=== PATIENT | male | born 1965 | race Caucasian/White ===

== ENCOUNTER 2025-04-19 20:05 | Emergency (ER) | payer OTHER, SELFPAY ==
[2025-04-19 20:06] VITALS: BP 143/91; PULSE 102; RESP 16; TEMP 35.8; O2SAT 99; BMI 44.9
--- NOTE | 2025-04-19 20:19 | RAD_ITS ---
PROCEDURE: HAND MIN 3 VIEWS 04/19/2025 REASON FOR EXAM: INJURY TECHNIQUE: HAND MIN 3 VIEWS COMPARISON: None. FINDINGS: Bones: Acute dislocation of the left 2nd and 3rd interphalangeal joints. Probable tiny acute fracture of the base of the 3rd phalanx, only visualized on lateral radiograph. Joints: The joint spaces are otherwise maintained. Soft tissues: Soft tissue swelling. Other: No radiopaque foreign body. RAD/Hand Min 3 Views IMPRESSION: Acute dislocation and probable tiny acute fracture as described. Reading Location: [id number]
--- OUTSIDE RECORDS SUMMARY | 2025-04-19 20:52 | XMS RPT_ITS | CCD ---
Author Organization [facility] Care Team Providers Care Engine Dispatcher Name Role Phone Chele Anneoy Primary Care Provider LARS PHAN Attending Unavailable Amina [facility] Primary Care Provider Amina [facility] Primary Care Provider [phone] Nicanor SERVICE WRITER ADVISOR.LEONILA [facility] Primary Care Provider Amber Vick Attending Unavailable Amber Vick Attending Unavailable MARIELENA RIVERA Referring Unavailable [facility] Primary Care Unavailable [facility] Primary Care Unavailable MARIELENA RIVERA Referring Unavailable [facility] Primary [facility] Unavailable GIGAX, DAWNA Cevallos Attending Unavailable GIGAX, DAWNA Cevallos Referring Unavailable [facility] Unavailabl e GIGAX, DAWNA Cevallos Attending Unavailable [facility] Unavailable GIGAX, DAWNA Cevallos Referring Unavailable [facility] Unavailabl e GIGAX, DAWNA Cevallos Attending Unavailable [facility] Unavailabl e [facility] Unavailabl e GIGAXDAWNA [facility]erring [facility] GIGAX, DAWNA Cevallos Attending Unavailable [facility] Primary Care Unavailable MARIELENA RVIERA Referring Unavailable [facility] Primary Care Unavailable MARIELENA RIVERA Attending Unavailable [facility] Primary Care Unavailable MARIELENA RIVERA Referring Unavailable [facility] Primary [facility] Unavailable MARIELENA RIVERA Attending Unavailable [facility] Primary Care Unavailable GIGAX, DAWNA Cevallos Attending Unavailable GIGAX, DAWNA Cevallos Attending Unavailable GIGAX, DAWNA Cevallos Admitting Unavailable [facility] Unavailabl e Allergies Allergy Classification Reported Allergen(s) Allergy Type Date of Onset Reaction(s) Facility (20 sources) cephalexin; Translations: [CEPHALEXIN] Drug Allergy 7 Other: See Comments, [facility] Repository (20 sources) codeine; Translations: [CODEINE] Drug Allergy 7 [facility] Repository (15 sources) Sulfamethoxazole / Trimethoprim; Translations: [SULFAMETHOXAZOLE-TR IMETHOPRIM] Drug Allergy 4 Other: See Comments [facility] Medications Current Medications Medication Drug Class(es) Dates Sig (Normalized) Sig (Original) [id number] 200 actuat albuterol 0.09 mg/actuat metered dose inhaler (3 sources) beta2-Adrenergic Agonist albuterol HFA (VENTOLIN HFA) 90 mcg/actuation inhaler Inhale 2 Puffs as instructed. 0 Active atorvastatin 20 mg oral tablet (13 sources) HMG-CoA Reductase Inhibitor Start: 11-18-2023 take 1 tablet by mouth once daily at bedtime atorvastatin (LIPITOR) 20 mg tablet Take 20 mg by mouth daily at bedtime. 11/18/2023 Active CPAP (13 sources) CPAP Active CPAP furosemide 20 mg oral tablet (13 sources) Loop Diuretic take 1 tablet by mouth once daily furosemide (LASIX) 20 mg tablet Take 20 mg by mouth once daily. Active levoFLOXacin 500 mg oral tablet (1 source) Quinolone Antimicrobial Start: 06-21-20 End: 06-26-20 24 take 1 tablet by mouth once daily levoFLOXacin (LEVAQUIN) 500 mg tablet Take 1 tablet by mouth once daily for 5 days. 5 tablet 06/21/2024 06/26/2024 Active levothyroxine sodium 0.2 mg oral tablet (13 sources) l-Thyroxine Start: 11-07-19 24 take 1 tablet by mouth once daily in the morning levothyroxine (SYNTHROID) 200 mcg tablet Take 200 mcg by mouth every morning. Take on an empty stomach. 11/07/2023 Active lisinopril 40 mg oral tablet (13 sources) Angiotensin Converting Enzyme Inhibitor Start: 10-02-20 23 take 1 tablet by mouth once lisinopril (ZESTRIL) 40 mg tablet Take 1 tablet by mouth every afternoon. 10/02/2023 Active 24 hr metoprolol succinate 100 mg extended release oral tablet (13 sources) beta-Adrenergic Buck Start: 10-17-20 23 take 1 tablet by mouth once daily metoprolol succinate ER (TOPROL XL) 100 mg Take 1 tablet by mouth once daily. 10/17/2023 Active 10 actuat olodaterol 0.0025 mg/actuat / tiotropium 0.0025 mg/actuat inhalation spray (13 sources) Anticholinergic, beta2-Adrenergic Agonist Start: 12-01-19 STIOLTO RESPIMAT 2.5-2.5 mcg/actuation Indications: Pulmonary emphysema, unspecified emphysema type (HCC) inhale 2 puffs by mouth and INTO THE LUNGS once daily 1 Each 12/01/2023 Active omeprazole 40 mg delayed release oral capsule (13 sources) Proton Pump Inhibitor Start: 11-18-19 omeprazole (PRILOSEC) 40 mg capsule take 1 capsule by mouth once daily 30 MINUTES before MORNING MEAL 11/18/2023 Active rivaroxaban 20 mg oral tablet (13 sources) Factor Xa Inhibitor Start: 11-07-19 take 1 tablet by mouth once daily at dinner XARELTO 20 mg tablet take 1 tablet by mouth once daily with evening meal 11/07/2023 Active Completed/Discontinued Medications Medication Drug Class(es) Dates Sig (Normalized) Sig (Original) lidocaine hydrochloride 0.02 mg/mg topical gel (2 sources) Antiarrhythmic, Amide Local Anesthetic Start: 06-13-2024 End: 06-13-2024 lidocaine urojet 2 % 20 mL topical gel (GLYDO) Start: 06-13-2024 End: 06-13-2024 lidocaine urojet 2 % 20 mL t opical gel (GLYDO) regadenoson 0.4 mg injection (LEXISCAN) (2 sources) Start: 04-04-2025 End: 04-04-2025 regadenoson 0.4 mg injection (LEXISCAN) Start: 04-04-2025 End: 04-04-2025 0.4 mg, INTRAVENOUS, DIRE CTED NEEDED, 1 dose, Starting on Mon04/04/25 at 0746, Until Mon04/04/25 at 0748, Per-Protocol - for use during STRESS TEST procedure only, Give 0.4 mg (5 mL) over ~10 seconds, followed immediately by a 5 mL saline flush. Wait 10-20 seconds, then administer the radionuclide myocardial perfusion imaging agent., Cardiac Procedure Med Orders sildenafil 50 mg oral tablet (8 sources) Phosphodiesterase 5 Inhibitor End: 01-20-2025 take 1 tablet by mouth once daily as needed sildenafil (VIAGRA) 50 mg tablet Take 50 mg by mouth once daily as needed. 01/20/2025 Discontinued (Other) sodium chloride 0.154 meq/ml irrigation solution (2 sources) Start: 06-13-2024 End: 06-13-2024 NaCl 0.9% irrigation solution Problems Active Problems Problem Classification Problem Date Documented Da te Episodic/Chronic Alcohol-related disorders (13 sources) Alcohol abuse; Translations: [Alcohol abuse, uncomplicated] Onset: 12-01-2023 12-01-2023 Chronic Cardiac dysrhythmias (14 sources) Atrial fibrillation; Translations: [Unspecified atrial fibrillation] Onset: 12-01-2023 12-01-2023 Chronic Chronic obstructive pulmonary disease and bronchiectasis (15 sources) Chronic obstructive lung disease; Translations: [Chronic obstructive pulmonary disease, unspecified] Onset: 12-01-2023 12-01-2023 Chronic Congestive heart failure; nonhypertensive (6 sources) Congestive heart failure; Translations: [Heart failure, unspecified] Onset: 11-26-2024 11-26-2024 Chronic Coronary atherosclerosis and other heart disease (4 sources) Coronary arteriosclerosis; Translations: [Atherosclerotic heart disease of [place] coronary artery without angina pectoris] Onset: 04-04-2025 04-04-2025 Chronic Disorders of lipid metabolism (20 sources) Dyslipidemia; Translations: [Hyperlipidemia, unspecified] Onset: 12-01-2023 12-01-2023 Chronic Esophageal disorders (13 sources) Bautista's esophagus; Translations: [Bautista's esophagus without dysplasia] Onset: 12-01-2023 12-01-2023 Chronic Essential hypertension (20 sources) Essential hypertension; Translations: [Essential (primary) hypertension] Onset: 12-01-2023 12-01-2023 Chronic Hyperplasia of prostate (3 sources) Weak urinary stream due to benign prostatic hypertrophy; Translations: [Benign prostatic hyperplasia with lower urinary tract symptoms] Onset: 06-04-2024 06-04-2024 Chronic Miscellaneous mental health disorders (13 sources) Primary insomnia; Translations: [Primary insomnia] Onset: 12-30-2015 12-01-2023 Chronic Mood disorders (13 sources) Depressive disorder; Translations: [Depression] Onset: 12-30-2015 12-01-2023 Chronic Other diseases of bladder and urethra (4 sources) Male urethral stricture; Translations: [Other urethral stricture, male, overlapping sites] 06-04-2024 Episodic Other lower respiratory disease (2 sources) Dyspnea, unspecified; Translations: [Dyspnea, unspecified type] Onset: 01-31-2025 Episodic Other nutritional; endocrine; and metabolic disorders (13 sources) Body mass index 40+ - severely obese; Translations: [Morbid (severe) obesity due to excess calories] Onset: 12-01-2023 12-01-2023 Chronic Other nutritional; endocrine; and metabolic disorders (10 sources) Body mass index 30+ - obesity; Translations: [Obesity, unspecified] Onset: 06-21-2024 06-21-2024 Chronic Other screening for suspected conditions (not mental disorders or infectious disease) (6 sources) Patient encounter status; Translations: [Encounter for screening for cardiovascular disorders] Onset: 01-31-2025 01-20-2025 Episodic Residual codes; unclassified (14 sources) Obstructive sleep apnea syndrome; Translations: [Obstructive sleep apnea (adult) (pediatric)] Onset: 12-01-2023 Chronic Thyroid disorders (13 sources) Hypothyroidism; Translations: [Hypothyroidism, unspecified] Onset: 12-01-2023 12-01-2023 Chronic Unclassified (1 source) Longstanding persistent atrial fibrillation; Translations: [Longstanding persistent atrial fibrillation (HCC)] Onset: 06-21-2024 Past or Other Problems Problem Classification Problem Date Documented Da te Episodic/Chronic Genitourinary symptoms and ill-defined conditions (3 sources) Retention of urine; Translations: [Retention of urine, unspecified] Onset: 06-04-2024 07-29-2024 Episodic Nonspecific chest pain (13 sources) Radiating chest pain; Translations: [Other chest pain] Onset: 12-01-2023 12-01-2023 Episodic Other diseases of bladder and urethra (13 sources) Urethral stricture; Translations: [Unspecified urethral stricture, male, unspecified site] Onset: 06-04-2024 06-04-2024 Episodic Other diseases of bladder and urethra (2 sources) Other urethral bulbous stricture, male; Translations: [Other specified causes of urethral stricture] Onset: 06-04-2024 10-28-2024 Episodic Other diseases of bladder and urethra (1 source) Other urethral stricture, male, overlapping sites; Translations: [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] Onset: 06-04-2024 Episodic Other lower respiratory disease (13 sources) Snoring; Translations: [Snoring] Onset: 12-01-2023 12-01-2023 Episodic Other lower respiratory disease (20 sources) Dyspnea; Translations: [Shortness of breath] Onset: 12-01-2023 12-01-2023 Episodic Residual codes; unclassified (17 sources) Tobacco user; Translations: [Tobacco use] Onset: 12-01-2023 12-01-2023 Episodic Residual codes; unclassified (18 sources) Past history of procedure; Translations: [Personal history of other medical treatment] Onset: 11-26-2024 11-26-2024 Episodic Residual codes; unclassified (2 sources) Tobacco use; Translations: [Tobacco abuse] Onset: 06-21-2024 Episodic Unclassified (1 source) T8 PHYSICAL Onset: 04-04-2023 Unclassified (3 sources) Patient encounter status 01-20-2025 Urinary tract infections (1 source) Cystitis, unspecified without hematuria; Translations: [Cystitis, unspecified without hematuria] Onset: 06-24-2017 Episodic Results Test Name Value Interpretation Reference Range Facility NM CARDIAC PERF STRESS/PHARM on 04-04-2025 NM CARDIAC PERF STRESS/PHARM * * *Final Report* * * DATE OF EXAM: Apr 04 2025 8:55AM N 0006 - NM CARDIAC PERF STRESS/PHARM / PROCEDURE REASON: multiple diagnoses * * * * Physician Interpretation * * * * Stress ECG Report: [facility] Date of service: 04/04/2025 8:00:00 AM Ordering physician: MARIELENA RIVERA digital advertising specialist: Hoa Cifuentes Interpreting physician: Troy Galan DO Patient name: DAWNA TIPTON Age: 60 years Gender: M Height: 180.34 cm BSA: 2.68 m? Weight: 142.88 kg BMI: 43.9 kg/m? Indication: Shortness of breath, Abnormal resting ECG and Palpitations Stress ECG Conclusion: Conclusion: Non-diagnostic Comments: completed lexiscan stress test. the ekg wasa fib with diffuse st changes Stress ECG Summary: The patient's resting heart rate was 100 bpm and blood pressure was 140/84 mmHg. The patient received regadenoson 0.4 mg IVP over approximately 15 seconds followed immediately by injection of nuclear isotope. The test was terminated due to end of protocol. Other symptoms during the test included SOB. Medications: Last Used LASIX TOPROL XL SYNTHROID PRILOSEC LIPITOR LISINOPRIL XARELTO STIOLTO Resting ECG: Atrial Fib/Flutter and Atrial Fib With Uncontrolled Ventricular Response Symptoms at rest: No symptoms Pharamcologic Protocol: Regadenoson Stress Exercise Table: + +---+---+---+ Time (min) HR SYS TONY + +---+---+---+ 1.0 118 133 76 + +---+---+---+ 3.0 99 110 83 + +---+---+---+ ++--+ HR ++--+ Stress Observations: Resting HR: 100 bpm Resting BP: 140 / 84 mmHg Stress Exercise Observations: Reason for test termination: end of protocol and Symptoms during test: Other symptoms during the test included SOB * * * Final * * * PATIENT: Name: DAWNA TIPTON Age: 60 years Gender: M CONCLUSIONS: 1. SPECT Perfusion Study: Normal. 2. There is no scintigraphic evidence for inducible ischemia. 3. No evidence of scarred myocardium. 4. Left ventricle is normal in size. The left ventricle systolic function is normal. 5. This is a low risk scan. LVEF % 69 Prior Study Comparison No prior nuclear cardiology exam available for comparison. Nuclear Med Report:1-Day Gated SPECT Myocardial Perfusion with Regadenoson Stress: Myocardial perfusion imaging was performed at rest 30 minutes following the IV injection of the radiotracer. The patient received 0.4 mg of regadenoson, via rapid IV push, immediately followed by radiotracer IV. Gated post stress tomographic imaging was performed 30 to 60 minutes later. See administered radiotracer and doses below. [facility] Date of service: 04/04/2025 8:00:00 AM Ordering Physician: MARIELENA HEARN Requesting Physician: Indication: Dyspnea and AFIB, palpatations Interpreting physician: Eric Arriola MD Height: 180.34 cm BSA: 2.68 m? Weight: 142.88 kg BMI: 43.9 kg/m? Imaging Protocol Limitation Reason Patient motion. Exam Type: Rest Stress Radiopharm: Tc-99m Tetrofosmin Tc-99m Tetrofosmin Dosage(mCi): 16 52.4 Stress Agent: Regadenoson 0.4mg Supply provided from [facility] Resting Blood Press: 140/84 mmHg Image Quality The overall study imaging quality was deemed to be good. The following technical issues were noted: Patient motion. FINDINGS: LVEF: 69 % LEFT VENTRICLE The left ventricle is normal in size. Left ventricular systolic function is normal. Stress Test Findings: There is no scintigraphic evidence for inducible ischemia. There is no evidence of scarring. * * * Final * * * Stress Manager Business Management Report: [facility] Date of service: 04/04/2025 8:00:00 AM Supervising physician: Cayla Verduzco CNP PATIENT: Name: DAWNA TIPTON Age: 60 years Gender: M The supervising physician was in the department and immediately available. * * * Final * * * RP Program Director/Air Personality: URMILA Transcribe Date/Time: Apr 04 2025 8:00A Dictated by : ERIC ARRIOLA MD This examination was interpreted and the report reviewed and electronically signed by: ERIC ARRIOLA MD on Apr 07 2025 5:51AM EST [id number] [facility] 03-03-2025 [facility] Office Visit (CAUNDO ) POOJADAWNA Cevallos ([id number]) 1965 M Date Time Provider Department 03/03/25 9:00 AM MARIELENA RIVERA During your visit today, we recorded the following information about you: Pulse Blood pressure Weight Height 98/minute 128/76 142.9 kg 1.803 m Marielena Rivera MD 03/03/2025 11:20 AM Addendum Referring Provider: No ref. provider found Date: March 03, 2025 Chief Complaint: Established Patient Follow-Up (6 weeks calcium score and echo) HISTORY OF PRESENT ILLNESS: Dawna Tipton presents for Established Patient Follow-Up (6 weeks calcium score and echo). 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 With the only complaint that of stable/longstanding mild dyspnea on exertion, chart review reveals the fact that atrial fibrillation was first documented in June 2024. Asymptomatic, he was placed on metoprolol succinate to 100 mg and Xarelto. No attempt was made to restore sinus rhythm. He returns today with again no cardiac complaints. He continues to smoke. ALLERGIES Allergen Reactions Bactrim [Sulfametho* Other: See Comments Get's blisters on his penis Codeine Rash Keflex [Cephalexin] Rash PAST MEDICAL HISTORY: PAST MEDICAL HISTORY Diagnosis Date A-fib (HCC) Bautista's esophagus CHF (congestive heart failure) (HCC) COPD (chronic obstructive pulmonary disease) (HCC) Dyslipidemia Essential hypertension ETOH abuse GERD (gastroesophageal reflux disease) H/O pulmonary function tests 04/17/2023 spirometry normal, mild air trapping H/O pulmonary function tests 01/15/2020 mild obstruction, significant improvement post bronchodilator, mild air trapping present, normal diffusion History of cardiac monitoring 10/20/2022 PAF, no other arrhythmias. Highest HR 151 bpm. lowest HR 67 bpm. Average HR 84 bpm History of echocardiogram 04/02/2024 EF 55-60%. Trace MR and TR History of echocardiogram 11/07/2022 EF 53%. Mildly dilated left atrium. Preserved systolic function of left ventricle. Right ventricular systolic function preserved. Mild MR and TR. RVSP 30-35 mmHg History of echocardiogram 02/14/2025 EF 50%. Left ventricular systolic function is mildly decreased. Right ventricle is mildly dilated. Right atrial cavity is dilated. Mild MR, TR. Trace AR, IA. No evidence of intracardiac shunting as detected by Doppler. History of stress test 11/07/2022 No EKG evidence of ischemia or infarction History of stress test 10/26/2022 EF 61%. Normal perfusion without reversibility. Hypothyroidism Mixed hyperlipidemia CHUYITA (obstructive sleep apnea) Sleep apnea Snoring SOB (shortness of breath) Tobacco abuse Urinary retention PAST SURGICAL HISTORY Procedure Laterality Date CYSTOSCOPY CYSTOSCOPY N/A 06/21/2024 Cysto with dilation of urethral stricture- Dr Shah EAR TUBES HX Bilateral 2023 Dr Cline KNEE SURGERY HX 2012 FAMILY HISTORY Problem Relation Age of Onset Thyroid Mother Diabetes Father Thyroid Father Thyroid Sister SOCIAL HISTORY: Tobacco Use: Types: Cigarettes Alcohol Use: Yes (5-6 beers/day) Drug Use: Never Employer And Job Title: None on file Years Of Education Completed: Not specified Marital Status: MEDICATIONS: Current Outpatient Medications Medication Sig furosemide (LASIX) 20 mg tablet Take 20 mg by mouth once daily. metoprolol succinate ER (TOPROL XL) 100 mg Take 1 tablet by mouth once daily. levothyroxine (SYNTHROID) 200 mcg tablet Take 200 mcg by mouth every morning. Take on an empty stomach. omeprazole (PRILOSEC) 40 mg capsule take 1 capsule by mouth once daily 30 MINUTES before MORNING MEAL atorvastatin (LIPITOR) 20 mg tablet Take 20 mg by mouth daily at bedtime. lisinopril (ZESTRIL) 40 mg tablet Take 1 tablet by mouth every afternoon. XARELTO 20 mg tablet take 1 tablet by mouth once daily with evening meal CPAP STIOLTO RESPIMAT 2.5-2.5 mcg/actuation inhale 2 puffs by mouth and INTO THE LUNGS once daily No current facility-administered medications for this visit. I have personally reviewed the patients past medical history including social, family, surgical, diagnostics, and medications. REVIEW OF SYSTEMS: Review of Systems Constitutional: Negative for chills and fatigue. Respiratory: Negative for chest tightness and shortness of breath. Cardiovascular: Negative for chest pain, palpitations and leg swelling. Neurological: Negative for dizziness, syncope, weakness and light-headedness. Hematological: Bruises/bleeds easily. Psychiatric/Behavioral: Negative for confusion and hallucinations. PHYSICAL EXAMINATION: BP 128/76 (BP Site: Left Arm, BP Position: Sitting, BP Cuff Size: Large Hubert (more content not included)... [facility] 03-03-2025 [facility] Telephone (TáximoNDO) DAWNA TIPTON ([id number]) 1965 M Date Time Provider Department 03/03/25 MARIELENA RIVERA During your visit today, we recorded the following information about you: Marielena Rivera MD 03/03/2025 11:18 AM Signed Revised calcium report - showed heavily calcified LAD. Needs Lexiscan. Micheal Pitts MA 03/03/2025 1:09 PM Signed Patient notified of the message and was given the stress test date/time and was agreeable. Allergies As of Date: 03/03/2025 Noted Allergy Reaction BACTRIM (SULFAMETHOXAZOLE-TRIMETH*05/08 14 - Other: See Comments Comments: Get's blisters on his penis CODEINE 06/24/2017 2 - Rash KEFLEX (CEPHALEXIN) 06/24/2017 2 - Rash Date Reviewed: 03/03/2025 Reviewed by: Micheal Pitts MA - Fully Assessed Reason for Visit: Orders [681] Primary Visit Diagnosis:Encounter for screening for cardiovascular disorders [Z13.6] Other Visit Diagnosis:Coronary artery disease involving [place] coronary artery of [place] heart without angina pectoris [I25.10] Order(s):NM CARDIAC PERF STRESS/PHARM [[id number]] Order #: [id number] FUTURE Prescriptions as of 03/03/2025 - furosemide (LASIX) 20 mg tablet Take 20 mg by mouth once daily. - metoprolol succinate ER (TOPROL XL) 100 mg Take 1 tablet by mouth once daily. - levothyroxine (SYNTHROID) 200 mcg tablet Take 200 mcg by mouth every morning. Take on an empty stomach. - omeprazole (PRILOSEC) 40 mg capsule take 1 capsule by mouth once daily 30 MINUTES before MORNING MEAL - atorvastatin (LIPITOR) 20 mg tablet Take 20 mg by mouth daily at bedtime. - lisinopril (ZESTRIL) 40 mg tablet Take 1 tablet by mouth every afternoon. - XARELTO 20 mg tablet take 1 tablet by mouth once daily with evening meal - CPAP - STIOLTO RESPIMAT 2.5-2.5 mcg/actuation inhale 2 puffs by mouth and INTO THE LUNGS once daily Problem List As Of Date 03/03/2025 Noted Resolved Chest pain radiating to arm [R07.89] 12/01/2023 Diagnosed: 12/01/2023 Depression [F32.A] 12/30/2015 Diagnosed: 12/01/2023 Primary insomnia [F51.01] 12/30/2015 Diagnosed: 12/01/2023 Chronic atrial fibrillation (HCC) [I48.20] 12/01/2023 Bautista's esophagus [K22.70] 12/01/2023 COPD (chronic obstructive pulmonary disease) (H*12/01/2023 Dyslipidemia [E78.5] 12/01/2023 Essential hypertension [I10] 12/01/2023 ETOH abuse [F10.10] 12/01/2023 Hypothyroidism [E03.9] 12/01/2023 Mixed hyperlipidemia [E78.2] 12/01/2023 CHUYITA (obstructive sleep apnea) [G47.33] 12/01/2023 Snoring [R06.83] 12/01/2023 SOB (shortness of breath) [R06.02] 12/01/2023 Tobacco abuse [Z72.0] 12/01/2023 Obesity, Class III, BMI >= 40 [E66.813] 12/01/2023 Urethral stricture [N35.919] 06/04/2024 Obesity (BMI 35.0-39.9 without comorbidity) [E6*06/21/2024 History of echocardiogram [Z92.89] 11/26/2024 History of stress test [Z92.89] 11/26/2024 History of cardiac monitoring [Z92.89] 11/26/2024 CHF (congestive heart failure) (HCC) [I50.9] 11/26/2024 Encounter Status:Closed by MICHEAL PITTS on 03/03/25 Normal [facility] ECHOon 02-14-2025 CONCLUSIONS: - Technically difficult exam due to body habitus. - Exam indication: Shortness of Breath - The left ventricle is normal in size. Left ventricular systolic function is mildly decreased. EF = 50 5% (2D biplane) - The right ventricle is mildly dilated. Right ventricular systolic function is normal. - The right atrial cavity is dilated. - Exam was compared with the prior OUTSIDE echocardiographic exam performed on 11/08/2022. Report in epic. * * * Final * * * [facility] CARDIOLOGY Echocardiography Report: Transthoracic Echo [facility] Date of service: 02/14/2025 9:01:28 AM Ordering physician: MARIELENA RIVERA Indication: Shortness of Breath Technologist: Angel Coates [facility] Interpreting physician: Uriel Lyles MD PATIENT: Name: DAWNA TIPTON : 1965 Age: 59 years Gender: M History of arrhythmia, hypertension and angina. Primary rhythm: atrial fib. Height: 180.30 cm BSA: 2.68 m Weight: 143.10 kg BMI: 44.0 kg/m Heart rate 83 bpm Blood pressure 128/72 mmHg Technically difficult exam due to body habitus. Color Doppler was utilized to interrogate the cardiac valves assessed and spectral Doppler was utilized to determine the flow velocities and pressure gradients reported in this exam. MEASUREMENTS: Value Indexed Normal Max aortic dimension 3.7 cm Ao < 3.8 Left atrial volume 58 ml (biplane A-L) 22 ml/m Radha <= 34 LV ID (diastole) 4.8 cm (2D) 1.78 cm/m LV ID (systole) 3.3 cm (2D) 1.22 cm/m IVS, leaflet tips 1.1 cm (2D) Posterior wall thickness 1.0 cm (2D) Left ventricular mass 180 g (2D) 67 g/m LV stroke volume 51 ml (2D biplane) LVOT stroke volume 48 ml 19 ml/m LV end diastolic volume 102 ml (2D biplane) 38.0 ml/m 34<=EDVi<75 LV end systolic volume 51 ml (2D biplane) 19.0 ml/m Ejection Fraction 50 % (2D biplane) EF > 52 FINDINGS: LEFT VENTRICLE The left ventricle is normal in size. Left ventricular systolic function is mildly decreased. Left ventricular diastolic function was not evaluated due to AF. Wall Motion: All scored segments are normal. RIGHT VENTRICLE The right ventricle is mildly dilated. Right ventricular systolic function is normal. RV systolic tissue Doppler velocity is 8.8 cm/s. Tricuspid annular displacement is 2.2 cm. Estimated right ventricular systolic pressure is 32 mmHg consistent with normal pulmonary artery pressures. Estimated right atrial pressure is 3 mmHg based on IVC assessment. LEFT ATRIUM The left atrial cavity is normal in size. RIGHT ATRIUM The right atrial cavity is dilated. Inferior Vena Cava: The inferior vena cava appears normal measuring 1.4 cm. The vessel decreases greater than 50 percent with inspiration. MITRAL VALVE There is mild (1+) mitral valve regurgitation. There is mild thickening. The peak mitral valve gradient is 6 mmHg. The mean mitral valve gradient is 2 mmHg. The pressure half time is 35 msec. TRICUSPID VALVE There is mild (1+ - 2+) tricuspid valve regurgitation. There is mild thickening. AORTIC VALVE There is trace aortic valve regurgitation. Tricuspid aortic valve. There is moderate thickening. The peak gradient is 3 mmHg (peak velocity = 93.1 cm/s). The mean gradient is 2 mmHg. The LVOT mean velocity is 53.3 cm/s. The LVOT diameter is 2.0 cm. The aortic VTI is 18.0 cm. The mean velocity in the aortic valve is 64.9 cm/s. The dimensionless valve index is 0.85. AV area is 2.67 cm (1.00 cm /m ) by continuity, VTI. The LVOT stroke volume index is 19 ml/m . PULMONIC VALVE There is trace (trace - 1+) pulmonic valve regurgitation. There is mild thickening. AORTA The visualized aorta is normal in size. Measurements - Aortic valve annulus 2.0 cm. Sinus: 3.1 cm. Sinotubular junction 2.4 cm. Mid ascending aorta 3.7 cm. PULMONARY ARTERIES The pulmonary arteries are unseen or not interrogated. INTERATRIAL SEPTUM There is no evidence of intracardiac shunting as detected by Doppler. INTERVENTRICULAR SEPTUM There is no flow through the interventricular septum as detected by Doppler. PERICARDIUM There is no pericardial effusion. [facility] CARDIOLOGY [facility] Echocardiography Echocardiography Rep ort: Transthoracic [facility] Date of service: 02/14/2025 9:01:28 AM Ordering physician: MARIELENA RIVERA Indication: Shortness of Breath Technologist: Angel Coates [facility] Interpreting physician: Uriel Lyles MD PATIENT: Name: DAWNA TIPTON : 1965 Age: 59 years Gender: M History of arrhythmia, hypertension and angina. Primary rhythm: atrial fib. Height: 180.30 cm BSA: 2.68 m Weight: 143.10 kg BMI: 44.0 kg/m Heart rate 83 bpm Blood pressure 128/72 mmHg Technically difficult exam due to body habitus. Color Doppler was utilized to interrogate the cardiac valves assessed and spectral Doppler was utilized to determine the flow velocities and pressure gradients reported in this exam. MEASUREMENTS: Value Indexed Normal Max aortic dimension 3.7 cm Ao < 3.8 Left atrial volume 58 ml (biplane A-L) 22 ml/m Radha <= 34 LV ID (diastole) 4.8 cm (2D) 1.78 cm/m LV ID (systole) 3.3 cm (2D) 1.22 cm/m IVS, leaflet tips 1.1 cm (2D) Posterior wall thickness 1.0 cm (2D) Left ventricular mass 180 g (2D) 67 g/m LV stroke volume 51 ml (2D biplane) LVOT stroke volume 48 ml 19 ml/m LV end diastolic volume 102 ml (2D biplane) 38.0 ml/m 34<=EDVi<75 LV end systolic volume 51 ml (2D biplane) 19.0 ml/m Ejection Fraction 50 % (2D biplane) EF > 52 FINDINGS: LEFT VENTRICLE The left ventricle is normal in size. Left ventricular systolic function is mildly decreased. Left ventricular diastolic function was not evaluated due to AF. Wall Motion: All scored segments are normal. RIGHT VENTRICLE The right ventricle is mildly dilated. Right ventricular systolic function is normal. RV systolic tissue Doppler velocity is 8.8 cm/s. Tricuspid annular displacement is 2.2 cm. Estimated right ventricular systolic pressure is 32 mmHg consistent with normal pulmonary artery pressures. Estimated right atrial pressure is 3 mmHg based on IVC assessment. LEFT ATRIUM The left atrial cavity is normal in size. RIGHT ATRIUM The right atrial cavity is dilated. Inferior Vena Cava: The inferior vena cava appears normal measuring 1.4 cm. The vessel decreases greater than 50 percent with inspiration. MITRAL VALVE There is mild (1+) mitral valve regurgitation. There is mild thickening. The peak mitral valve gradient is 6 mmHg. The mean mitral valve gradient is 2 mmHg. The pressure half time is 35 msec. TRICUSPID VALVE There is mild (1+ - 2+) tricuspid valve regurgitation. There is mild thickening. AORTIC VALVE There is trace aortic valve regurgitation. Tricuspid aortic valve. There is moderate thickening. The peak gradient is 3 mmHg (peak velocity = 93.1 cm/s). The mean gradient is 2 mmHg. The LVOT mean velocity is 53.3 cm/s. The LVOT diameter is 2.0 cm. The aortic VTI is 18.0 cm. The mean velocity in the aortic valve is 64.9 cm/s. The dimensionless valve index is 0.85. AV area is 2.67 cm (1.00 cm /m ) by continuity, VTI. The LVOT stroke volume index is 19 ml/m . PULMONIC VALVE There is trace (trace - 1+) pulmonic valve regurgitation. There is mild thickening. AORTA The visualized aorta is normal in size. Measurements - Aortic valve annulus 2.0 cm. Sinus: 3.1 cm. Sinotubular junction 2.4 cm. Mid ascending aorta 3.7 cm. PULMONARY ARTERIES The pulmonary arteries are unseen or not interrogated. INTERATRIAL SEPTUM There is no evidence of intracardiac shunting as detected by Doppler. INTERVENTRICULAR SEPTUM There is no flow through the interventricular septum as detected by Doppler. PERICARDIUM There is no pericardial effusion. CONCLUSIONS: - Technically difficult exam due to body habitus. - Exam indication: Shortness of Breath - The left ventricle is normal in size. Left ventricular systolic function is mildly decreased. EF = 50 5% (2D biplane) - The right ventricle is mildly dilated. Right ventricular systolic function is normal. - The right atrial cavity is dilated. - Exam was compared with the prior OUTSIDE echocardiographic exam performed on 11/08/2022. Report in epic. * * * Final * * * CC [employer] [facility] : [id number] DynamicsSISUID [facility] CT CA SCORE (CARDIAC) WO IVC ONon 01-31-2025 CT CA SCORE (CARDIAC) WO IVCON * * *Final Report* * * * * * SEE BOTTOM OF REPORT FOR ADDENDED TEXT * * * DATE OF EXAM: Jan 31 2025 11:28AM [facility] 2050 - CT CA SCORE (CARDIAC) WO IVCON / PROCEDURE REASON: multiple diagnoses * * * * Physician Interpretation * * * * * * * * * * * * ORIGINAL REPORT * * * * * * * * Examination: CT Coronary Calcium Score Direct Image Comparison: None HISTORY: 59 years old Male with concern for coronary artery disease. There is request to assess coronary calcification TECHNIQUE: SCANNER: Multi-detector scanner PROTOCOL: Sequential imaging with prospective triggering and 3-mm slice reconstruction was performed without contrast administration. Scan Range: sowmya to the base of the heart Scan acquisition was uncomplicated Tube Voltage: [address] Dose-Length Product (DLP): 62.[address] Dose Reduction Employed: Automated exposure control(AEC) and iterative recon CONTRAST: None Macro Version: [id number] For optimization of anatomic evaluation, off-line postprocessing was performed on a dedicated workstation by the interpreting physician. STUDY LIMITATIONS: None. RESULT: LINES, TUBES and DEVICES: None limited CHEST: visualized Chest wall anatomy: unremarkable. visualized LUNGS: unremarkable. visualized MEDIASTINUM: unremarkable. PERICARDIUM: unremarkable CENTRAL PULMONARY ARTERY: normal dimensions. Assessment is limited due to lack of contrast enhancement. CARDIAC CHAMBERS: assessment is limited in the non-contrast study. -Overall normal dimensions AORTIC VALVE: assessment is limited in the current study. Minimal calcification at the commissures. visualized AORTA: Aortic Size: Normal size visualized thoracic aorta. Wall Changes: no wall calcification. AORTIC DIMENSIONS: AORTIC ROOT: 4.0 cm measured [id number] mid ASCENDING THORACIC AORTA: 3.6 cm mid DESCENDING THORACIC AORTA: 2.5 cm CORONARY ANATOMY: normal origin of the coronary arteries. Calcium Score (Agatston Units): LM: 0 AU LAD: 196 AU LCx: 0 AU RCA: 49.6 AU Other: 0 AU Total: 645 AU Percentile Rank (age and gender matched relative to reference population): 96 percentile* [* [email or web address]] limited upper ABDOMEN: unremarkable BONES and SOFT TISSUES: unremarkable, within limitations of the current study Stove Mounter (topogram) images: No additional findings. IMPRESSION: - Total Coronary Calcium Score (CAC) = 645 - Mild dilation of the aortic root (4.0 cm) * * * * * * * * ADDENDUM #1 * * * * * * * * Calcium Score (Agatston Units): LM: 0 AU LAD: 596 AU LCx: 0 AU RCA: 49.6 AU Other: 0 AU Total: 645.6 AU Program Director/Air Personality: CLARISA Transcribe Date/Time: Mar 03 2025 7:20P Dictated by : GRIS REYNA, This examination was interpreted and the report reviewed and electronically signed by: GRIS REYNA, on Jan 31 2025 1:22PM EST This document has been addended by: GRIS REYNA, on Mar 03 2025 7:22PM EST [id number] [facility] CT Heart and Coronary arteri es for calcium scoring WO contraston 01-31-2025 IMPRESSION: - Total Coronary Calcium Score (CAC) = 645 - Mild dilation of the aortic root (4.0 cm) Program Director/Air Personality: CLARISA Transcribe Date/Time: Jan 31 2025 12:18P Dictated by : GRIS REYNA, This examination was interpreted and the report reviewed and electronically signed by: GRIS REYNA, on Jan 31 2025 1:22PM EST [facility] * * *Final Report* * * DATE OF EXAM: Jan 31 2025 11:28AM [facility] 2050 - CT CA SCORE (CARDIAC) WO IVCON / PROCEDURE REASON: multiple diagnoses * * * * Physician Interpretation * * * * Examination: CT Coronary Calcium Score Direct Image Comparison: None HISTORY: 59 years old Male with concern for coronary artery disease. There is request to assess coronary calcification TECHNIQUE: SCANNER: Multi-detector scanner PROTOCOL: Sequential imaging with prospective triggering and 3-mm slice reconstruction was performed without contrast administration. Scan Range: sowmya to the base of the heart Scan acquisition was uncomplicated Tube Voltage: [address] Dose-Length Product (DLP): 62.[address] Dose Reduction Employed: Automated exposure control(AEC) and iterative recon CONTRAST: None Macro Version: [id number] For optimization of anatomic evaluation, off-line postprocessing was performed on a dedicated workstation by the interpreting physician. STUDY LIMITATIONS: None. RESULT: LINES, TUBES and DEVICES: None limited CHEST: visualized Chest wall anatomy: unremarkable. visualized LUNGS: unremarkable. visualized MEDIASTINUM: unremarkable. PERICARDIUM: unremarkable CENTRAL PULMONARY ARTERY: normal dimensions. Assessment is limited due to lack of contrast enhancement. CARDIAC CHAMBERS: assessment is limited in the non-contrast study. -Overall normal dimensions AORTIC VALVE: assessment is limited in the current study. Minimal calcification at the commissures. visualized AORTA: Aortic Size: Normal size visualized thoracic aorta. Wall Changes: no wall calcification. AORTIC DIMENSIONS: AORTIC ROOT: 4.0 cm measured [id number] mid ASCENDING THORACIC AORTA: 3.6 cm mid DESCENDING THORACIC AORTA: 2.5 cm CORONARY ANATOMY: normal origin of the coronary arteries. Calcium Score (Agatston Units): LM: 0 AU LAD: 196 AU LCx: 0 AU RCA: 49.6 AU Other: 0 AU Total: 645 AU Percentile Rank (age and gender matched relative to reference population): 96 percentile* [* [email or web address]] limited upper ABDOMEN: unremarkable BONES and SOFT TISSUES: unremarkable, within limitations of the current study Stove Mounter (topogram) images: No additional findings. [facility] Provider, Eduard Angelmahnaz billy Islas - 01/31/2025 * * *Final Report* * * DATE OF EXAM: Jan 31 2025 11:28AM [facility] 2050 - CT CA SCORE (CARDIAC) BILLY DUNNON / PROCEDURE REASON: multiple diagnoses * * * * Physician Interpretation * * * * Examination: CT Coronary Calcium Score Direct Image Comparison: None HISTORY: 59 years old Male with concern for coronary artery disease. There is request to assess coronary calcification TECHNIQUE: SCANNER: Multi-detector scanner PROTOCOL: Sequential imaging with prospective triggering and 3-mm slice reconstruction was performed without contrast administration. Scan Range: sowmya to the base of the heart Scan acquisition was uncomplicated Tube Voltage: [address] Dose-Length Product (DLP): 62.[address] Dose Reduction Employed: Automated exposure control(AEC) and iterative recon CONTRAST: None Macro Version: [id number] For optimization of anatomic evaluation, off-line postprocessing was performed on a dedicated workstation by the interpreting physician. STUDY LIMITATIONS: None. RESULT: LINES, TUBES and DEVICES: None limited CHEST: visualized Chest wall anatomy: unremarkable. visualized LUNGS: unremarkable. visualized MEDIASTINUM: unremarkable. PERICARDIUM: unremarkable CENTRAL PULMONARY ARTERY: normal dimensions. Assessment is limited due to lack of contrast enhancement. CARDIAC CHAMBERS: assessment is limited in the non-contrast study. -Overall normal dimensions AORTIC VALVE: assessment is limited in the current study. Minimal calcification at the commissures. visualized AORTA: Aortic Size: Normal size visualized thoracic aorta. Wall Changes: no wall calcification. AORTIC DIMENSIONS: AORTIC ROOT: 4.0 cm measured [id number] mid ASCENDING THORACIC AORTA: 3.6 cm mid DESCENDING THORACIC AORTA: 2.5 cm CORONARY ANATOMY: normal origin of the coronary arteries. Calcium Score (Agatston Units): LM: 0 AU LAD: 196 AU LCx: 0 AU RCA: 49.6 AU Other: 0 AU Total: 645 AU Percentile Rank (age and gender matched relative to reference population): 96 percentile* [* [email or web address]] limited upper ABDOMEN: unremarkable BONES and SOFT TISSUES: unremarkable, within limitations of the current study Stove Mounter (topogram) images: No additional findings. IMPRESSION IMPRESSION: - Total Coronary Calcium Score (CAC) = 645 - Mild dilation of the aortic root (4.0 cm) Program Director/Air Personality: CLARISA Transcribe Date/Time: Jan 31 2025 12:18P Dictated by : GRIS REYNA, This examination was interpreted and the report reviewed and electronically signed by: GRIS REYNA, on Jan 31 2025 1:22PM EST [facility] Radiology Study observation (narrative) [facility] CT Heart and Coronary arteri es for calcium scoring WO contrastOrdered By: [facility] Provider on 01-31-2025 [facility] FREE T4on 01-27-2025 Free T4 [Mass/Vol] 1.36 ng/dL Normal 0.76-1.46 [facility] Comment on above: Performed By: #### F T4 #### [place] [address] CNOVon 01-20-2025 CNOV Office Visit (CAUNDO ) DAWNA TIPTON ([id number]) 1965 M Date Time Provider Department 01/20/25 9:00 AM MARIELENA RIVERA During your visit today, we recorded the following information about you: Pulse Blood pressure Weight Height 93/minute 128/72 143.1 kg 1.803 m Marielena Rivera MD 01/20/2025 9:53 AM Signed Referring Provider: No ref. provider found Date: January 20, 2025 Chief Complaint: CARD New Patient Consult (New patient - previous AFIB w/ normal ventricular rate ) HISTORY OF PRESENT ILLNESS: Dawna Tipton presents for CARD New Patient Consult (New patient - previous AFIB w/ normal ventricular rate ). 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 Previously assessed in October 2022 with a normal nuclear stress test and subsequently in November 2022 with an echocardiogram reporting mild left atrial enlargement. First EKG demonstrating atrial fibrillation seen in June 2024. Placed on Xarelto and metoprolol succinate 100 mg, there is no documentation of effort to restore sinus rhythm. On return today his only complaint is that of dyspnea on exertion [he is sedentary] as he denies orthopnea, PND, symptoms of dysrhythmia, and any discomfort 1 might interpreted as angina. He occasionally feels palpitations when lying in bed but is otherwise unaware of his abnormal rhythm. He is compliant with his Xarelto and metoprolol succinate. ALLERGIES Allergen Reactions Bactrim [Sulfametho* Other: See Comments Get's blisters on his penis Codeine Rash Keflex [Cephalexin] Rash PAST MEDICAL HISTORY: PAST MEDICAL HISTORY Diagnosis Date A-fib ([facility]) Bautista's esophagus CHF (congestive heart failure) ([facility]) COPD (chronic obstructive pulmonary disease) ([facility]) Dyslipidemia Essential hypertension ETOH abuse GERD (gastroesophageal reflux disease) H/O pulmonary function tests 04/17/2023 spirometry normal, mild air trapping H/O pulmonary function tests 01/15/2020 mild obstruction, significant improvement post bronchodilator, mild air trapping present, normal diffusion History of cardiac monitoring 10/20/2022 PAF, no other arrhythmias. Highest HR 151 bpm. lowest HR 67 bpm. Average HR 84 bpm History of echocardiogram 04/02/2024 EF 55-60%. Trace MR and TR History of echocardiogram 11/07/2022 EF 53%. Mildly dilated left atrium. Preserved systolic function of left ventricle. Right ventricular systolic function preserved. Mild MR and TR. RVSP 30-35 mmHg History of stress test 11/08/2022 No EKG evidence of ischemia or infarction History of stress test 10/26/2022 EF 61%. Normal perfusion without reversibility. Hypothyroidism Mixed hyperlipidemia CHUYITA (obstructive sleep apnea) Sleep apnea Snoring SOB (shortness of breath) Tobacco abuse Urinary retention PAST SURGICAL HISTORY Procedure Laterality Date CYSTOSCOPY CYSTOSCOPY N/A 06/21/2024 Cysto with dilation of urethral stricture- Dr Shah EAR TUBES HX Bilateral 2023 Dr Cline KNEE SURGERY HX 2012 FAMILY HISTORY Problem Relation Age of Onset Thyroid Mother Diabetes Father Thyroid Father Thyroid Sister SOCIAL HISTORY: Tobacco Use: Types: Cigarettes Alcohol Use: Yes (5-6 beers/day) Drug Use: Never Employer And Job Title: None on file Years Of Education Completed: Not specified Marital Status: MEDICATIONS: Current Outpatient Medications Medication Sig furosemide (LASIX) 20 mg tablet Take 20 mg by mouth once daily. metoprolol succinate ER (TOPROL XL) 100 mg Take 1 tablet by mouth once daily. levothyroxine (SYNTHROID) 200 mcg tablet Take 200 mcg by mouth every morning. Take on an empty stomach. omeprazole (PRILOSEC) 40 mg capsule take 1 capsule by mouth once daily 30 MINUTES before MORNING MEAL atorvastatin (LIPITOR) 20 mg tablet Take 20 mg by mouth daily at bedtime. lisinopril (ZESTRIL) 40 mg tablet Take 1 tablet by mouth every afternoon. XARELTO 20 mg tablet take 1 tablet by mouth once daily with evening meal CPAP STIOLTO RESPIMAT 2.5-2.5 mcg/actuation inhale 2 puffs by mouth and INTO THE LUNGS once daily No current facility-administered medications for this visit. I have personally reviewed the patients past medical history including social, family, surgical, diagnostics, and medications. REVIEW OF SYSTEMS: Review of Systems Constitutional: Negative for chills and fatigue. Respiratory: Negative for chest tightness and shortness of breath. Cardiovascular: Positive for leg swelling. Negative for chest pain and palpitations. Neurological: Negative for dizziness, syncope, weakness and light-headedness. Hematological: Bruises/bleeds easily. Psychiatric/Behavioral: Negativ (more content not included)... [facility] ECG COMPLETEon 01-20-2025 ECG COMPLETE Ventricular Rate : 8 6 BPM Atrial Rate : 76 BPM QRS Duration : 86 ms Q-T Interval : 366 ms QTC Calculation(Bazett) : 437 ms Calculated R Kerrick : 56 degrees Calculated T Kerrick : 8 degrees appears sinus abn p wave axis Confirmed by TROY GALAN DO ([id number]) on 02/01/2025 4:20:06 AM NAME : DAWNA TIPTON PID : [id number] : 1965 Gender : Male Race : ORD : [id number] Procedure Date : Jan 20 2025 08:58:32 Edit Date : Feb 01 2025 04:20:09 Diagnosis: appears sinus abn p wave axis Confirmed by TROY GALAN DO ([id number]) on 02/01/2025 4:20:06 AM Test Reason : HCS Location : 2 : [facility] Overread By : TROY GALAN DO Edited By : TROY GALAN DO Referred By : , Acquired by : , [facility] 10-28-2024 [facility] Office Visit (UROUPD ) POOJADAWNA Ban ([id number]) 1965 M Date Time Provider Department 10/28/24 9:00 AM DAWNA SHAH UROUPD During your visit today, we recorded the following information about you: Pulse Blood pressure 97/minute 128/88 Dawna Shah MD 10/28/2024 9:18 AM Signed October 28, 2024 Reason for Appointment Patient presents with: Follow Up: 3 month f/u. Pt states he is doing really good. HPI Dawna Cevallos Salalbino is a 59 year old male who presents today for a follow-up appointment. Overall the patient is doing well. He is catheterizing once a week at this point. He said that he has no difficulty passing the catheter now. He really feels like he is doing very well with regard to urination. He said that he has a good, strong stream. Current Medications sildenafil (VIAGRA) 50 mg tablet Take 50 mg by mouth once daily as needed. furosemide (LASIX) 20 mg tablet Take 20 mg by mouth as needed. metoprolol succinate ER (TOPROL XL) 100 mg Take 1 tablet by mouth every afternoon. Takes in the evening. levothyroxine (SYNTHROID) 200 mcg tablet Take 200 mcg by mouth every morning. Take on an empty stomach. omeprazole (PRILOSEC) 40 mg capsule take 1 capsule by mouth once daily 30 MINUTES before MORNING MEAL atorvastatin (LIPITOR) 20 mg tablet Take 20 mg by mouth daily at bedtime. lisinopril (ZESTRIL) 40 mg tablet Take 1 tablet by mouth every afternoon. XARELTO 20 mg tablet take 1 tablet by mouth once daily with evening meal CPAP STIOLTO RESPIMAT 2.5-2.5 mcg/actuation inhale 2 puffs by mouth and INTO THE LUNGS once daily (Patient taking differently: inhale 2 puffs by mouth and INTO THE LUNGS once daily. Takes at HS) PAST MEDICAL HISTORY Diagnosis Date A-fib (HCC) Bautista's esophagus COPD (chronic obstructive pulmonary disease) (HCC) Dyslipidemia Essential hypertension ETOH abuse Hypothyroidism Mixed hyperlipidemia CHUYITA (obstructive sleep apnea) Sleep apnea Snoring SOB (shortness of breath) Tobacco abuse PAST SURGICAL HISTORY Procedure Laterality Date CYSTOSCOPY CYSTOSCOPY N/A 06/21/2024 Cysto with dilation of urethral stricture KNEE SURGERY HX Bilateral FAMILY HISTORY Problem Relation Age of Onset Thyroid Mother Diabetes Father Thyroid Father Social History Tobacco Use Smoking status: Every Day Current packs/day: 1.50 Types: Cigarettes Smokeless tobacco: Never Vaping Use Vaping status: Never Used Substance Use Topics Alcohol use: Yes Comment: 5-6 beers/day Drug use: Never ALLERGIES Allergen Reactions Bactrim [Sulfametho* Other: See Comments Get's blisters on his penis Codeine Rash Keflex [Cephalexin] Other: See Comments Objective BP 128/88 Pulse 97 SpO2 99% Physical Exam Constitutional: Appearance: Normal appearance. Pulmonary: Effort: Pulmonary effort is normal. Genitourinary: Comments: Perimeatal lichen sclerosis noted. The meatus seems to be adequately patent at this point. Neurological: Mental Status: He is alert and oriented to person, place, and time. ASSESSMENT/PLAN: 1. 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 I explained to him that I very strongly encouraged him to continue to catheterize at least once a week to maintain patency of the urethra. I am very concerned about recurrence given the extensiveness of his urethral stricture. The patient expressed clear understanding and reiterated that he is having no problems passing the catheter at all. Therefore, we will continue with the once a week regimen. We will see him back in June when he will be due for a PSA. As long as everything is going well we should be able to see him annually thereafter. 2. Benign prostatic hyperplasia with weak urinary stream - ICD9: 600.01, 788.62, ICD10: N40.1, R39.12 The patient was having obstructive symptoms which were mostly related to the urethral stricture. We will however check a PSA annually. - PROSTATE-SPECIFIC ANTIGEN DIAGNOSTIC Dawna Shah MD Follow Up Return in about 8 months (around 06/28/2025) for PSA prior. Allergies As of Date: 10/28/2024 Noted Allergy Reaction BACTRIM (SULFAMETHOXAZOLE-TRIMETH*/ 14 - Other: See Comments Comments: Get's blisters on his penis CODEINE 06/24/2017 2 - Rash KEFLEX (CEPHALEXIN) 06/24/2017 14 - Other: See Comments Date Reviewed: 10/28/2024 Reviewed by: Debi Haines - Fully Assessed Reason for Visit: Follow Up [171] Cmt: 3 month f/u. Pt states he is doing really good. 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 [facility] Visit (UROUPD ) DAWNA TIPTON ([id number]) 1965 M Date Time Provider Department 07/29/24 10:45 AM DAWNA SHAH UROUPD During your visit today, we recorded the following information about you: Pulse Blood pressure 114/minute 128/83 Dawna Shah MD 07/29/2024 12:39 PM Signed July 29, 2024 Reason for Appointment Patient presents with: Follow Up: 1 month f/u. Pt stated everything is going great, and that is the best thing he has done. HPI Dawna Huangalbino is a 59 year old male who presents today for a follow-up appointment. The patient is doing very well. He said that he urinates essentially normally now. He is not really having any difficulty catheterizing and is doing it twice a day at this time. He denies any gross hematuria or urinary infections. Overall he is doing much better and is very pleased with the improvement. Current Medications sildenafil (VIAGRA) 50 mg tablet Take 50 mg by mouth once daily as needed. furosemide (LASIX) 20 mg tablet Take 20 mg by mouth as needed. metoprolol succinate ER (TOPROL XL) 100 mg Take 1 tablet by mouth every afternoon. Takes in the evening. levothyroxine (SYNTHROID) 200 mcg tablet Take 200 mcg by mouth every morning. Take on an empty stomach. omeprazole (PRILOSEC) 40 mg capsule take 1 capsule by mouth once daily 30 MINUTES before MORNING MEAL atorvastatin (LIPITOR) 20 mg tablet Take 20 mg by mouth daily at bedtime. lisinopril (ZESTRIL) 40 mg tablet Take 1 tablet by mouth every afternoon. XARELTO 20 mg tablet take 1 tablet by mouth once daily with evening meal CPAP STIOLTO RESPIMAT 2.5-2.5 mcg/actuation inhale 2 puffs by mouth and INTO THE LUNGS once daily (Patient taking differently: inhale 2 puffs by mouth and INTO THE LUNGS once daily. Takes at HS) PAST MEDICAL HISTORY Diagnosis Date A-fib (HCC) Bautista's esophagus COPD (chronic obstructive pulmonary disease) (HCC) Dyslipidemia Essential hypertension ETOH abuse Hypothyroidism Mixed hyperlipidemia CHUYITA (obstructive sleep apnea) Sleep apnea Snoring SOB (shortness of breath) Tobacco abuse PAST SURGICAL HISTORY Procedure Laterality Date CYSTOSCOPY CYSTOSCOPY N/A 06/21/2024 Cysto with dilation of urethral stricture KNEE SURGERY HX Bilateral FAMILY HISTORY Problem Relation Age of Onset Thyroid Mother Diabetes Father Thyroid Father Social History Tobacco Use Smoking status: Every Day Current packs/day: 1.50 Types: Cigarettes Smokeless tobacco: Never Vaping Use Vaping status: Never Used Substance Use Topics Alcohol use: Yes Comment: 5-6 beers/day Drug use: Never ALLERGIES Allergen Reactions Bactrim [Sulfametho* Other: See Comments Get's blisters on his penis Codeine Rash Keflex [Cephalexin] Other: See Comments Objective BP 128/83 Pulse 114 SpO2 99% Physical Exam Constitutional: Appearance: Normal appearance. He is obese. Pulmonary: Breath sounds: Normal breath sounds. Neurological: Mental Status: He is alert and oriented to person, place, and time. ASSESSMENT/PLAN: 1. Retention of urine - ICD9: 788.20, ICD10: R33.9 (primary diagnosis) The patient is doing very well with intermittent catheterization. I recommended that he reduce the frequency down to just 1 time per day. We will see him back in 3 months to assess his progress. He does understand that if he has difficulty passing the catheter he should go back to twice a day. 2. 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 - ICD9: 598.8, ICD10: N35.816 See above Dawna Shah MD Follow Up Return in about 3 months (around 10/28/2024). Allergies As of Date: 07/29/2024 Noted Allergy Reaction BACTRIM (SULFAMETHOXAZOLE-TRIMETH*05/08 14 - Other: See Comments Comments: Get's blisters on his penis CODEINE 06/24/2017 2 - Rash KEFLEX (CEPHALEXIN) 06/24/2017 14 - Other: See Comments Date Reviewed: 07/29/2024 Reviewed by: Debi Haines - Fully Assessed Reason for Visit: Follow Up [171] Cmt: 1 month f/u. Pt stated everything is going great, and that is the best thing he has done. Primary Visit Diagnosis:Retention of urine [R33.9] Other Visit Diagnosis: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 [N35.816] Prescriptions as of 07/29/2024 - sildenafil (VIAGRA) 50 mg tablet Take 50 mg by mouth once daily as needed. - furosemide (LASIX) 20 mg tablet Take 20 mg by mouth as needed. - metoprolol succinate ER (TOPROL XL) 100 mg Take 1 tablet by mouth every afternoon. Takes in the evening. - levothyroxine (SYNTHROID) 200 mcg tablet Take 200 mcg by mouth every morning. Take on an empty stomach. - omeprazole (PRILOSEC) 40 mg capsule take 1 capsule by mouth once daily 30 MINUTES before MORNING MEAL - atorvastatin (LIPITOR) 20 mg tablet Take 20 mg by mouth daily at bedtime. - lisinopril (ZESTRIL) 40 mg table (more content not included)... [facility] Dev 06-25-2024 CNPN Telephone (UROUPD) POOJADAWNA ([id number]) 1965 M Date Time Provider Department 06/25/24 AMELIA NUR UROUPD During your visit today, we recorded the following information about you: Lurdes Story 06/25/2024 2:19 PM Signed Dawna called the office and states with the diagnosis of stricture his insurance will not pay for the catheters. He states if the diagnosis of retention or incontinence they might pay. Thank you Amelia Awad, SERVICE WRITER ADVISOR.[facility] 06/25/2024 3:04 PM Signed It appears the diagnosis provided was the same utilized for his surgical intervention. I cannot adjust this diagnosis. Does he have a order form that needs completed or are we e scribing the catheters? I could adjust diagnosis code for e scribed products. Lurdes Story 06/26/2024 10:46 AM Signed Can you please place an addendum on his last progress note with the diagnosis of retention. His insurance will not pay for the catheters with the diagnosis of stricture. Thank you Lurdes Story Allergies As of Date: 06/25/2024 Noted Allergy Reaction BACTRIM (SULFAMETHOXAZOLE-TRIMETH*05/08 14 - Other: See Comments Comments: Get's blisters on his penis CODEINE 06/24/2017 2 - Rash KEFLEX (CEPHALEXIN) 06/24/2017 14 - Other: See Comments Date Reviewed: 06/24/2024 Reviewed by: Lurdes Story - Fully Assessed Reason for Visit: Orders [681] Prescriptions as of 07/17/2024 - sildenafil (VIAGRA) 50 mg tablet Take 50 mg by mouth once daily as needed. - furosemide (LASIX) 20 mg tablet Take 20 mg by mouth as needed. - metoprolol succinate ER (TOPROL XL) 100 mg Take 1 tablet by mouth every afternoon. Takes in the evening. - levothyroxine (SYNTHROID) 200 mcg tablet Take 200 mcg by mouth every morning. Take on an empty stomach. - omeprazole (PRILOSEC) 40 mg capsule take 1 capsule by mouth once daily 30 MINUTES before MORNING MEAL - atorvastatin (LIPITOR) 20 mg tablet Take 20 mg by mouth daily at bedtime. - lisinopril (ZESTRIL) 40 mg tablet Take 1 tablet by mouth every afternoon. Takes 20mg daily - XARELTO 20 mg tablet take 1 tablet by mouth once daily with evening meal - CPAP - STIOLTO RESPIMAT 2.5-2.5 mcg/actuation inhale 2 puffs by mouth and INTO THE LUNGS once daily Problem List As Of Date 06/25/2024 Noted Resolved Chest pain radiating to arm [R07.89] 12/01/2023 Diagnosed: 12/01/2023 Depression [F32.A] 12/30/2015 Diagnosed: 12/01/2023 Primary insomnia [F51.01] 12/30/2015 Diagnosed: 12/01/2023 A-fib (HCC) [I48.91] 12/01/2023 Bautista's esophagus [K22.70] 12/01/2023 COPD (chronic obstructive pulmonary disease) (H*12/01/2023 Dyslipidemia [E78.5] 12/01/2023 Essential hypertension [I10] 12/01/2023 ETOH abuse [F10.10] 12/01/2023 Hypothyroidism [E03.9] 12/01/2023 Mixed hyperlipidemia [E78.2] 12/01/2023 CHUYITA (obstructive sleep apnea) [G47.33] 12/01/2023 Snoring [R06.83] 12/01/2023 SOB (shortness of breath) [R06.02] 12/01/2023 Tobacco abuse [Z72.0] 12/01/2023 Obesity, Class III, BMI >= 40 [E66.01] 12/01/2023 Urethral stricture [N35.919] 06/04/2024 Obesity (BMI 35.0-39.9 without comorbidity) [E6*06/21/2024 Encounter Status:Closed by LURDES STORY on 07/17/24 [facility] CNOVon 06-24-2024 OV Office Visit (UROUPD ) ANGEL LUISDAWNA MURILLO ([id number]) 1965 M Date Time Provider Department 06/24/24 10:00 AM DAWNA SHAH UROUPD During your visit today, we recorded the following information about you: Pulse Blood pressure Weight Height 94/minute 149/98 128.8 kg 1.803 m Dawna Shah MD 06/24/2024 11:51 AM Signed Patient here to have his catheter removed and to learn intermittent catheterization. The patient underwent cystoscopy with dilation of the urethral stricture on Monday. He did have rodriguez urethral disease. The plan will be for him to catheterize daily for now. Mohini Altamirano RN 06/24/2024 1:11 PM Signed Faxed Catheter order a ABC. 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 - sildenafil (VIAGRA) 50 mg tablet Take 50 mg by mouth once daily as needed. - furosemide (LASIX) 20 mg tablet Take 20 mg by mouth as needed. - metoprolol succinate ER (TOPROL XL) 100 mg Take 1 tablet by mouth every afternoon. Takes in the evening. - levothyroxine (SYNTHROID) 200 mcg tablet Take 200 mcg by mouth every morning. Take on an empty stomach. - omeprazole (PRILOSEC) 40 mg capsule take 1 capsule by mouth once daily 30 MINUTES before MORNING MEAL - atorvastatin (LIPITOR) 20 mg tablet Take 20 mg by mouth daily at bedtime. - lisinopril (ZESTRIL) 40 mg tablet Take 1 tablet by mouth every afternoon. Takes 20mg daily - XARELTO 20 mg tablet take 1 tablet by mouth once daily with evening meal - CPAP - STIOLTO RESPIMAT 2.5-2.5 mcg/actuation inhale 2 puffs by mouth and INTO THE LUNGS once daily Problem List As Of Date 06/24/2024 Noted Resolved Chest pain radiating to arm [R07.89] 12/01/2023 Diagnosed: 12/01/2023 Depression [F32.A] 12/30/2015 Diagnosed: 12/01/2023 Primary insomnia [F51.01] 12/30/2015 Diagnosed: 12/01/2023 A-fib (HCC) [I48.91] 12/01/2023 Bautista's esophagus [K22.70] 12/01/2023 COPD (chronic obstructive pulmonary disease) (H*12/01/2023 Dyslipidemia [E78.5] 12/01/2023 Essential hypertension [I10] 12/01/2023 ETOH abuse [F10.10] 12/01/2023 Hypothyroidism [E03.9] 12/01/2023 Mixed hyperlipidemia [E78.2] 12/01/2023 CHUYITA (obstructive sleep apnea) [G47.33] 12/01/2023 Snoring [R06.83] 12/01/2023 SOB (shortness of breath) [R06.02] 12/01/2023 Tobacco abuse [Z72.0] 12/01/2023 Obesity, Class III, BMI >= 40 [E66.01] 12/01/2023 Urethral stricture [N35.919] 06/04/2024 Obesity (BMI 35.0-39.9 without comorbidity) [E6*06/21/2024 Visit Notes: >> Mohini Altamirano RN Mon Jun 24, 2024 1:11 PM Status: Signed Faxed Catheter order a ABC. Disposition: Return in about 4 weeks (around 07/22/2024). Follow-up and Disposition History for Encounter Date Provider Department Center 06/24/2024 [id number]-OHRVADAWNA SHAHKatherynUROUPD [facility] Encounter Status:Closed by DAWNA SHAH on 06/24/24 [facility] ANES POSTPROC EVALon 024 ANES POSTPROC EVAL HNO ID: [id number] Author: RUTH AHN DO Service: ? 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 Post Anesthesia Patient Status Patient Evaluation: PACU. PACU/ICU Patient Condition: stable. Anticipated Disposition: phase 2 then home. Neurological Status: aware and responsive. Pulmonary Status: breathing comfortably on room air Airway Control: returned to baseline unsupported. Cardiovascular Status: stable. Pain Management: clinically adequate Postoperative Hydration: acceptable. Intraoperative Events: no significant anesthesia events Post Operative Nausea/Vomiting Status: no significant post operative nausea or vomiting Recommendation: continue current plan of care. Anesthesia Observations No Documentation SIGNATURE: Ruth Ahn DO PATIENT NAME: Dawna Tipotn DATE: June 21, 2024 TIME: 3:13 PM CSN: [id number] [facility] ANES PRE-OPon 06-21-2024 ANES PRE-OP HNO ID: [id number] Author: RUTH AHN DO Service: ? Author Type: Anesthesiologist Type: Anesthesia Preprocedure Evaluation Filed: 06/21/2024 13:05 Note Text: ANESTHESIOLOGY DAY OF SURGERY NOTE : 1965 Procedure Information Date/Time: 06/21/24 1230 Procedure: CYSTOSCOPY Location: UN OR / UN OR Surgeons: Dawna Shah MD Estimated body mass index is 39.73 kg/m? as calculated from the following: Height as of this encounter: 180.3 cm (5' 11). Weight as of this encounter: 129.2 kg (284 lb 13.4 oz). Most recent hematocrit and potassium results: Hematocrit 40.3 06/13/2024 Potassium 3.6 06/13/2024 Relevant Problems ANESTHESIA (+) CHUYITA (obstructive sleep apnea) CARDIO (+) A-fib (HCC) (+) Essential hypertension ENDO (+) Hypothyroidism PULMONARY (+) COPD (chronic obstructive pulmonary disease) (HCC) (+) CHUYITA (obstructive sleep apnea) (+) SOB (shortness of breath) I - PHYSICAL EVALUATION AIRWAY Patient intubated: No. Tracheostomy tube not present Mallampati: III. TM distance: >3 FB. Neck ROM: full ROM without neurological symptoms. Mouth opening: adequate. Short neck: no. Thick neck: no Ladd present: no II - ANESTHESIA PLAN ASA Score: 3 Anesthetic Plan: MAC The patient is not a current smoker. NPO Status: adequate Beta Buck Monitoring Plan Monitoring plan: standard ASA. Post Procedure Analgesic Plan Informed Consent Anesthetic risks, benefits, alternatives, personnel and consent discussed: yes. Patient / Responsible Green Party agrees to proceed: yes Patient / Surrogate agrees to blood products: blood products not planned Significant changes in the patient condition since the History and Physical, not otherwise documented in primary service progress note: no. Potential Anesthesia issues that may suggest increased risk of complications or contraindication to planned procedure: none. Vitals Value Taken Time BP 147/102 06/21/24 1100 Pulse 92 06/21/24 1100 Resp 20 06/21/24 1100 Temp 36.5 ?C (97.7 ?F) 06/21/24 1100 SpO2 96 % 06/21/24 1100 Facility-Administered Medications as of 06/21/2024 Medication Dose Route Frequency lactated ringers iv infusion 5-30 mL/hr INTRAVENOUS CONTINUOUS levoFLOXacin iv piggyback 500 mg in D5W 100 mL (LEVAQUIN) 500 mg INTRAVENOUS ONCE Outpatient Medications as of 06/21/2024 Medication Sig sildenafil (VIAGRA) 50 mg tablet Take 50 mg by mouth once daily as needed. furosemide (LASIX) 20 mg tablet Take 20 mg by mouth as needed. metoprolol succinate ER (TOPROL XL) 100 mg Take 1 tablet by mouth every afternoon. Takes in the evening. levothyroxine (SYNTHROID) 200 mcg tablet Take 200 mcg by mouth every morning. Take on an empty stomach. omeprazole (PRILOSEC) 40 mg capsule take 1 capsule by mouth once daily 30 MINUTES before MORNING MEAL atorvastatin (LIPITOR) 20 mg tablet Take 20 mg by mouth daily at bedtime. lisinopril (ZESTRIL) 40 mg tablet Take 1 tablet by mouth every afternoon. Takes 20mg daily XARELTO 20 mg tablet take 1 tablet by mouth once daily with evening meal CPAP STIOLTO RESPIMAT 2.5-2.5 mcg/actuation inhale 2 puffs by mouth and INTO THE LUNGS once daily (Patient taking differently: inhale 2 puffs by mouth and INTO THE LUNGS once daily. Takes at HS) I have interviewed and examined the patient. I have reviewed the medical record and/or the pre-anesthesia evaluation, pertinent labs, and test results. This contains updated information obtained within 48 hours of Surgery/Procedure. SIGNATURE: Ruth Ahn DO PATIENT NAME: Dawna Tipton DATE: June 21, 2024 TIME: 1:03 PM CSN: [id number] [facility] HISTORY PHYSICALon HISTORY PHYSICAL HNO ID: [id number] Author: DAWNA SHAH MD Service: Urology Author Type: Physician Type: H&P Filed: 06/21/2024 13:00 Note Text: UPDATED HISTORY AND PHYSICAL EXAMINATION SERVICE DATE: 06/21/2024 SERVICE TIME: 1:00 PM PHYSICAL EXAM MUST BE COMPLETED ON ADMISSION The History and Physical (completed in the past 30 days) has been reviewed and the patient has been examined. The contents accurately reflect the patient's condition with the following additions or revisions since the HANDP was completed. Examination indicates no changes. This HANDP can be found in the Electronic Medical Record. SIGNATURE: Dawna Shah MD PATIENT NAME: Dawna Tipton DATE: June 21, 2024 TIME: 1:00 PM [facility] OPERATIVE NOon 06-21-2024 OPERATIVE NO HNO ID: [id number] Author: DAWNA SHAH MD Service: Urology Author Type: Physician Type: Operative Report Filed: 06/21/2024 14:16 Note Text: OPERATIVE/PROCEDURE REPORT LOG ID: [id number] SURGERY/PROCEDURE DATE: 06/21/2024 INCISION/PROCEDURE START TIME: INCISION CLOSE/PROCEDURE END TIME: SURGEON(S)/PROCEDURALIST(S) AND AUTOCAD(S): Surgeon(s) and Role: * Dawna Shah MD - Primary No Additional Staff SURGERY/PROCEDURE(S): Cystoscopy with dilation of urethral stricture ANESTHESIA: Monitored Anesthesia Care SURGERY/PROCEDURE DETAILS: The patient was taken to the operating room and placed in the supine position on the cystoscopy table. After he was sedated he was placed in the dorsal lithotomy position and prepped and draped in usual fashion. Following this I attempted to advance the pediatric cystoscope into the urethra however he had very significant narrowing even of the distal ureter. I then obtained a straight Solo wire. Under fluoroscopic guidance I was able to advance the wire into the bladder. I then obtained the Metatomix urethral dilator set. The urethra was sequentially dilated from 8 Dutch up to 20 Dutch. A 17 Dutch cystoscope was inserted alongside the wire through the urethra into the bladder. He had very extensive trabeculation of the bladder but no other abnormalities were noted. The ureteral orifices were in their normal location and configuration. The wire was in good position. As the scope was withdrawn the prostatic fossa was carefully evaluated and it was fairly small. Almost the entire pendulous urethra is extremely diseased and scarred. I then obtained a 18 Dutch miccosukee tip catheter. The catheter was advanced over the wire without difficulty. Once the catheter was all the way into the hub the wire was removed and the balloon was inflated with 10 mL of sterile water. The catheter was left to straight drain. The procedure was terminated. The patient was taken back to the ambulatory surgery unit in stable condition. PRE-OP/PRE-PROCEDURE DIAGNOSIS: Urethral stricture POST-OP/POST-PROCEDURE DIAGNOSIS: Same ESTIMATED BLOOD LOSS: None SPECIMENS: None IMPLANTABLE DEVICES: None DRAINS: South catheter COMPLICATIONS: None CLOSURE TECHNIQUE: Not applicable PARTICIPATION IN SURGERY/PROCEDURE: I/primary surgeon/proceduralist performed the entire procedure. SIGNATURE: Dawna Shah MD PATIENT NAME: Dawna Tipton DATE: June 21, 2024 TIME: 2:14 PM [facility] Bacteria Ur Culton 4 Bacteria identified Cx Nom (U) ORGANISM ID: 1 <10,000 CFU/ml Normal urogenital moise [facility] Comment on above: Performed By: #### 6 30-4 #### [facility] CLIA [id number] [address] [place] [address] [place] Basic metabolic 2000 panelon 06-13-2024 Anion gap [Moles/Vol] 11 mmol/L 8 - 15 mmol/L [facility] Calcium [Mass/Vol] 8.9 mg/dL 8.5 - 10.2 mg/dL [facility] Chloride [Moles/Vol] 105 mmol/L 98 - 107 mmol/L [facility] CO2 [Moles/Vol] 25 mmol/L 22 - 30 mmol/L [facility] Creatinine [Mass/Vol] 1.16 mg/dL 0.73 - 1.22 mg/dL [facility] GFR/1.73 sq M.predicted among non-blacks MDRD (S/P/Bld) [Vol rate/Area] 73 mL/min/{1.73_m2} - PINF [facility] Comment on above: Estimated Glomerular Filtration Rate (eGFR) is calculated using the 2020 CKD-EPI creatinine equation. This equation utilizes serum creatinine, sex, and age as parameters. The creatinine assay has traceable calibration to isotope dilution-mass spectrometry. Refer to KDIGO guidelines for clinical interpretation. In patients with unstable renal function, e.g. those with acute kidney injury, the eGFR may not accurately reflect actual GFR. Glucose [Mass/Vol] 99 mg/dL 74 - 99 mg/dL [facility] Comment on above: The [place] [employer] (ADA) provides guidance for cutoff values for fasting glucose and random glucose. The ADA defines fasting as no caloric intake for at least 8 hours. Fasting plasma glucose results between 100 to 125 mg/dL indicate increased risk for diabetes (prediabetes). Fasting plasma glucose results greater than or equal to 126 mg/dL meet the criteria for diagnosis of diabetes. In the absence of unequivocal hyperglycemia, results should be confirmed by repeat testing. In a patient with classic symptoms of hyperglycemia or hyperglycemic crisis, random plasma glucose results greater than or equal to 200 mg/dL meet the criteria for diagnosis of diabetes. Reference: Standards of Medical Care in Diabetes 2016, [employer] Diabetes Association. Diabetes Care. 2016.39(Suppl 1). Interpretation and review of laboratory results Abnormal [facility] Potassium [Moles/Vol] 3.6 mmol/L Low 3.7 - 5.1 mmol/L [facility] Sodium [Moles/Vol] 141 mmol/L 136 - 144 mmol/L [facility] Urea nitrogen [Mass/Vol] 13 mg/dL 9 - 24 mg/dL [facility] Anion gap [Moles/Vol] 11 mmol/L Normal 8-15 [facility] Comment on above: Order Comment: Miladi claudia Type: BLOOD SPECIMENOrdering Facility: [facility] Address: [address] [place] [address] Performed By: #### 2 4321-2 ####[facility] LABIA [id number] [place] [address] [place] Calcium [Mass/Vol] 8.9 mg/dL Normal 8.5-10.2 [facility] Comment on above: Order Comment: Miladi claudia Type: BLOOD SPECIMENOrdering Facility: [facility] Address: [address] [place] [address] Performed By: #### 2 4321-2 ####[facility] LABIA [id number] [place] [address] [place] Chloride [Moles/Vol] 105 mmol/L Normal 98-107 [facility] Comment on above: Order Comment: Speci men Type: BLOOD SPECIMENOrdering Facility: [facility] Address: [address] [place] [address] Performed By: #### 2 4321-2 ####[facility] LABIA [id number] [place] [address] [place] CO2 [Moles/Vol] 25 mmol/L Normal 22-30 [facility] Comment on above: Order Comment: Speci men Type: BLOOD SPECIMENOrdering Facility: [facility] Address: [address] [place] [address] Performed By: #### 2 4321-2 ####[facility] LABCLIA [id number] [place] [address] [place] Creatinine [Mass/Vol] 1.16 mg/dL Normal 0.73-1.22 [facility] Comment on above: Order Comment: Maxime taylor Type: BLOOD SPECIMENOrdering Facility: [facility] Address: [address] [place] [address] Performed By: #### 2 4321-2 ####[facility] LABIA [id number] [place] [address] [place] Creatinine and Glomerular filtration rate.predicted panel (S/P/Bld) 73 mL/min/1.73m??? Normal >=60 [facility] Comment on above: Order Comment: Maxime taylor Type: BLOOD SPECIMENOrdering Facility: [facility] Address: [address] [place] [address] Result Comment: Brandy mated Glomerular Filtration Rate (eGFR) is calculated using the 2020 CKD-EPI creatinine equation. This equation utilizes serum creatinine, sex, and age as parameters. The creatinine assay has traceable calibration to isotope dilution-mass spectrometry. Refer to KDIGO guidelines for clinical interpretation. In patients with unstable renal function, e.g. those with acute kidney injury, the eGFR may not accurately reflect actual GFR. Performed By: #### 2 4321-2 ####[facility] LABCLIA [id number] [place] [address] [place] Glucose [Mass/Vol] 99 mg/dL Normal 74-99 [facility] Comment on above: Order Comment: Maxime taylor Type: BLOOD SPECIMENOrdering Facility: [facility] Address: [address] [place] [address] Result Comment: The [place] Diabetes Association (ADA) provides guidance for cutoff values for fasting glucose and random glucose. The ADA defines fasting as no caloric intake for at least 8 hours. Fasting plasma glucose results between 100 to 125 mg/dL indicate increased risk for diabetes (prediabetes). Fasting plasma glucose results greater than or equal to 126 mg/dL meet the criteria for diagnosis of diabetes. In the absence of unequivocal hyperglycemia, results should be confirmed by repeat testing. In a patient with classic symptoms of hyperglycemia or hyperglycemic crisis, random plasma glucose results greater than or equal to 200 mg/dL meet the criteria for diagnosis of diabetes. Reference: Standards of Medical Care in Diabetes 2016, [employer] Diabetes Association. Diabetes Care. 2016.39(Suppl 1). Performed By: #### 2 4321-2 ####[facility] [id number] [place] [address] [place] Potassium [Moles/Vol] 3.6 mmol/L Low 3.7-5.1 [facility] Comment on above: Order Comment: Speci men Type: BLOOD SPECIMENOrdering Facility: [facility] Address: [address] [place] [address] Performed By: #### 2 4321-2 ####[facility] [id number] [place] [address] [place] Sodium [Moles/Vol] 141 mmol/L Normal 136-144 [facility] Comment on above: Order Comment: Maxime taylor Type: BLOOD SPECIMENOrdering Facility: [facility] Address: [address] [place] [address] Performed By: #### 2 4321-2 ####[facility] [id number] [place] [address] [place] Urea nitrogen [Mass/Vol] 13 mg/dL Normal 9-24 [facility] Comment on above: Order Comment: Maxime taylor Type: BLOOD SPECIMENOrdering Facility: [facility] Address: [address] [place] [address] Performed By: #### 2 4321-2 ####[facility] [id number] [place] [address] [place] CBC panel Auto (Bld)on 06-13 Erythrocyte distribution width (RBC) [Ratio] 15.8 % High 11.5 - 15.0 % [facility] Hematocrit (Bld) [Volume fraction] 40.3 % 39.0 - 51.0 % [facility] Hemoglobin (Bld) [Mass/Vol] 13.6 g/dL 13.0 - 17.0 g/dL [facility] Interpretation and review of laboratory results Abnormal [facility] MCH (RBC) [Entitic mass] 30.5 pg 26.0 - 34.0 pg [facility] MCHC (RBC) [Mass/Vol] 33.7 g/dL 30.5 - 36.0 g/dL [facility] MCV (RBC) [Entitic vol] 90.4 fL 80.0 - 100.0 fL [facility] Nucleated RBC (Bld) [#/Vol] NINF [facility] Platelet mean volume (Bld) [Entitic vol] 9.5 fL 9.0 - 12.7 fL [facility] Platelets (Bld) [#/Vol] 223 10*3/uL [facility] RBC (Bld) [#/Vol] 4.46 10*6/uL 4.20 - 6.00 m/uL [facility] WBC (Bld) [#/Vol] 6.95 10*3/uL [facility] Erythrocyte distribution width (RBC) [Ratio] 15.8 % High 11.5-15.0 [facility] Comment on above: Order Comment: Speci men Type: BLOOD SPECIMEN [facility] Address: [address] [place] [address] Performed By: #### 5 8410-2 #### [facility] LAB CLIA [id number] [address] [place] [address] [place] Hematocrit (Bld) [Volume fraction] 40.3 % Normal 39.0-51.0 [facility] Comment on above: Order Comment: Speci men Type: BLOOD SPECIMEN [facility] Address: [address] [place] [address] Performed By: #### 5 8410-2 #### [facility] CLIA [id number] [address] [place] [address] [place] Hemoglobin (Bld) [Mass/Vol] 13.6 g/dL Normal 13.0-17.0 [facility] Comment on above: Order Comment: Speci men Type: BLOOD SPECIMEN [facility] Address: [address] [place] [address] Performed By: #### 5 8410-2 #### [facility] CLIA [id number] [address] [place] [address] [place] MCH (RBC) [Entitic mass] 30.5 pg Normal 26.0-34.0 [facility] Comment on above: Order Comment: Speci men Type: BLOOD SPECIMEN [facility] Address: [address] [place] [address] Performed By: #### 5 8410-2 #### [facility] CLIA [id number] [address] [place] [address] [place] MCHC (RBC) [Mass/Vol] 33.7 g/dL Normal 30.5-36.0 [facility] Comment on above: Order Comment: Speci men Type: BLOOD SPECIMEN [facility] Address: [address] [place] [address] Performed By: #### 5 8410-2 #### [facility] CLIA [id number] [address] [place] [address] [place] MCV (RBC) [Entitic vol] 90.4 fL Normal 80.0-100.0 [facility] Comment on above: Order Comment: Speci men Type: BLOOD SPECIMEN [facility] Address: [address] [place] [address] Performed By: #### 5 8410-2 #### [facility] CLIA [id number] [address] [place] [address] [place] Nucleated RBC (Bld) [#/Vol] 10*3/uL Normal <0.01 [facility] Comment on above: Order Comment: Speci men Type: BLOOD SPECIMEN [facility] Address: [address] [place] [address] Performed By: #### 5 8410-2 #### [facility] CLIA [id number] [address] [place] [address] [place] Platelet mean volume (Bld) [Entitic vol] 9.5 fL Normal 9.0-12.7 [facility] Comment on above: Order Comment: Speci men Type: BLOOD SPECIMEN [facility] Address: [address] [place] [address] Performed By: #### 5 8410-2 #### [facility] CLIA [id number] [address] [place] [address] [place] Platelets (Bld) [#/Vol] 223 10*3/uL Normal 150-400 [facility] Comment on above: Order Comment: Speci men Type: BLOOD SPECIMEN [facility] Address: [address] [place] [address] Performed By: #### 5 8410-2 #### [facility] CLIA [id number] [address] [place] [address] [place] RBC (Bld) [#/Vol] 4.46 10*6/uL Normal 4.20-6.00 [facility] Comment on above: Order Comment: Speci men Type: BLOOD SPECIMEN [facility] Address: [address] [place] [address] Performed By: #### 5 8410-2 #### [facility] CLIA [id number] [address] [place] [address] WBC (Bld) [#/Vol] 6.95 10*3/uL Normal 3.70-11.00 [facility] Comment on above: Order Comment: Speci men Type: BLOOD SPECIMEN [facility] Address: [address] [place] [address] Performed By: #### 5 8410-2 #### [facility] CLIA [id number] [address] [place] [address] OF [facility] CNOVon 06-13-2024 CNOV Office Visit (UROUPD ) DAWNA [id number]) 1965 M Date Time Provider Department 06/13/24 10:30 AM DAWNA SHAH UROUPD During your visit today, we recorded the following information about you: Blood pressure 157/121 Dawna Shah MD 06/13/2024 12:42 PM Signed June 13, 2024 Reason for Appointment Patient presents with: Cystoscopy-1: Pt Denies urinary pain. Pt states urinary urgency and states he does not empty well HPI Dawna Tipton is a 59 year old male who presents today for cystoscopy. Pre op dx: Urethral stricture Post op dx: Same Procedure: Attempted flexible cystoscopy Scription of procedure: The patient was taken to the procedure room and placed in the supine position on the cystoscopy table. He was prepped in the usual fashion. 2% Xylocaine jelly was instilled into the urethra in a retrograde fashion. I obtained the flexible cystoscope and attempted to advance this into the urethra however there was significant meatal stenosis. I then obtained a straight hemostat and attempted to gently dilate the meatus however the patient had quite a bit of discomfort and it was clear that this was not going to be possible without anesthesia. The attempt was aborted and the patient will be scheduled for dilation in the operating room. BP 172/101 Physical Exam No follow-ups on file. UNIVERSAL PROTOCOL / SAFETY CHECKLIST Procedure to be Performed: Cystoscopy Sign In: A Moment of CARE was completed. Personnel directly involved with the procedure wore the appropriate PPE (Personal Protective Equipment). No special equipment needed. Patient/Surrogate Stated/Verified: PATIENT VERIFIED(optional for EMERGENT procedures): Patient name, Date of , Relevant allergies, and The intended procedure Time Out Communication: Intended patient and procedure match the source documents. Consent documented and matches the intended procedure. Relevant labs, photos, and/or imaging studies have been reviewed. No correct side/site applicable for marking and visibility. Medications required for procedure verified. No fire risk assessment and interventions applicable. No implant(s) inserted. Sign Out: SIGN OUT (optional for EMERGENT procedures): No specimen collected. All instruments, equipment, possible retained foreign bodies accounted for. Post-procedure follow-up management communicated and Plan of Care Visit completed when applicable. JONNY Funes Michael Ralph, MD 06/13/2024 12:42 PM Signed June 13, 2024 Reason for Appointment Patient presents with: Cystoscopy-1: Pt Denies urinary pain. Pt states urinary urgency and states he does not empty well HPI Dawna Tipton is a 59 year old male who presents today for cystoscopy. The patient had no new complaints but does still have lower urinary tract symptoms. Current Medications sildenafil (VIAGRA) 50 mg tablet Take 50 mg by mouth once daily as needed. furosemide (LASIX) 20 mg tablet Take 20 mg by mouth as needed. metoprolol succinate ER (TOPROL XL) 100 mg Take 1 tablet by mouth every afternoon. levothyroxine (SYNTHROID) 200 mcg tablet Take 200 mcg by mouth every morning. Take on an empty stomach. omeprazole (PRILOSEC) 40 mg capsule take 1 capsule by mouth once daily 30 MINUTES before MORNING MEAL atorvastatin (LIPITOR) 20 mg tablet Take 20 mg by mouth daily at bedtime. lisinopril (ZESTRIL) 40 mg tablet Take 1 tablet by mouth every afternoon. XARELTO 20 mg tablet take 1 tablet by mouth once daily with evening meal albuterol HFA (VENTOLIN HFA) 90 mcg/actuation inhaler Inhale 2 Puffs as instructed. STIOLTO RESPIMAT 2.5-2.5 mcg/actuation inhale 2 puffs by mouth and INTO THE LUNGS once daily CPAP PAST MEDICAL HISTORY No date: A-fib ([facility]) No date: Bautista's esophagus No date: COPD (chronic obstructive pulmonary disease) ([facility]) No date: Dyslipidemia No date: Essential hypertension No date: ETOH abuse No date: Hypothyroidism No date: Mixed hyperlipidemia No date: CHUYITA (obstructive sleep apnea) No date: Sleep apnea No date: Snoring No date: SOB (shortness of breath) No date: Tobacco abuse PAST SURGICAL HISTORY No date: KNEE SURGERY HX FAMILY HISTORY Problem Relation Age of Onset Thyroid Mother Diabetes Father Thyroid Father Social History Tobacco Use Smoking status: Every Day Packs/day: 1.5 Types: Cigarettes Smokeless tobacco: Never Vaping Use Vaping Use: Never used Substance Use Topics Alcohol use: Yes Drug use: Never ALLERGIES Allergen Reactions Bactrim [Sulfametho* Other: See Comments Get's blisters on his penis Codeine Rash Keflex [Cephalexin] Other: See Comments Objective BP 157/121 Physical Exam Constitutional: Appearance: Normal appearance. HENT: Head: Normocephalic. Nose: Nose normal. Cardiovascular: Rate and Rhythm: N (more content not included)... Normal [facility] ECG COMPLETEon 06-13-2024 ECG COMPLETE Ventricular Rate : 8 6 BPM QRS Duration : 80 ms Q-T Interval : 344 ms QTC Calculation(Bazett) : 411 ms Calculated R Kerrick : 5 degrees Calculated T Kerrick : 34 degrees Atrial fibrillation Abnormal ECG No previous ECGs available Confirmed by TRIPP ROJAS MD ([id number]) on 06/14/2024 9:29:13 AM NAME : POOJADAWNA PID : [id number] : 1965 Gender : Male Race : ORD : [id number] Procedure Date : Jun 13 2024 11:29:31 Edit Date : Jun 14 2024 09:29:18 Diagnosis: Atrial fibrillation Abnormal ECG No previous ECGs available Confirmed by TRIPP ROJAS MD ([id number]) on 06/14/2024 9:29:13 AM Test Reason : HCS Location : 7 : [facility] Overread By : TRIPP ROJAS MD Edited By : TRIPP ROJAS MD Referred By : DAWNA SHAH Acquired by : ARLEN STEPHEN [facility] Bacteria Ur Culton Bacteria identified Cx Nom (U) ORGANISM ID: 1 <10,000 CFU/ml Normal urogenital moise [facility] Comment on above: Performed By: #### 6 30-4 #### [facility] CLIA [id number] [address] [place] [address] [place] CNOVon 06-04-2024 CNOV Office Visit (UROUPD ) DAWNA TIPTON ([id number]) 1965 M Date Time Provider Department 06/04/24 7:30 AM DAWNA SHAH UROVALORIE During your visit today, we recorded the following information about you: Pulse Blood pressure 98/minute 128/89 Dawna Shah MD 06/04/2024 8:03 AM Signed June 04, 2024 Reason for Appointment Patient presents with: Consult: Acute cystitis with hematuria, dysuria, hx of hypospadias repair. Pt stated he did have an infection and has finished his antibiotics. He did state at one point he did have frequency and would leak a little. HPI Dawna Tipton is a 59 year old male who presents today for further evaluation of urinary difficulties related to hypospadias, status post repair in infancy. The patient recently had a urinary tract infection. He notes that he has a markedly diminished force of stream with spraying of the urinary stream. He said that he has had to sit to urinate for many years. He completed a course of antibiotics and said that he feels much better from the standpoint of the UTI. Current Medications sildenafil (VIAGRA) 50 mg tablet Take 50 mg by mouth once daily as needed. furosemide (LASIX) 20 mg tablet Take 20 mg by mouth as needed. metoprolol succinate ER (TOPROL XL) 100 mg Take 1 tablet by mouth every afternoon. levothyroxine (SYNTHROID) 200 mcg tablet Take 200 mcg by mouth every morning. Take on an empty stomach. omeprazole (PRILOSEC) 40 mg capsule take 1 capsule by mouth once daily 30 MINUTES before MORNING MEAL atorvastatin (LIPITOR) 20 mg tablet Take 20 mg by mouth daily at bedtime. lisinopril (ZESTRIL) 40 mg tablet Take 1 tablet by mouth every afternoon. XARELTO 20 mg tablet take 1 tablet by mouth once daily with evening meal albuterol HFA (VENTOLIN HFA) 90 mcg/actuation inhaler Inhale 2 Puffs as instructed. CPAP STIOLTO RESPIMAT 2.5-2.5 mcg/actuation inhale 2 puffs by mouth and INTO THE LUNGS once daily PAST MEDICAL HISTORY Diagnosis Date A-fib (HCC) Bautista's esophagus COPD (chronic obstructive pulmonary disease) (HCC) Dyslipidemia Essential hypertension ETOH abuse Hypothyroidism Mixed hyperlipidemia CHUYITA (obstructive sleep apnea) Sleep apnea Snoring SOB (shortness of breath) Tobacco abuse PAST SURGICAL HISTORY Procedure Laterality Date KNEE SURGERY HX FAMILY HISTORY Problem Relation Age of Onset Thyroid Mother Diabetes Father Thyroid Father Social History Tobacco Use Smoking status: Every Day Packs/day: 1.5 Types: Cigarettes Smokeless tobacco: Never Vaping Use Vaping Use: Never used Substance Use Topics Alcohol use: Yes Drug use: Never ALLERGIES Allergen Reactions Bactrim [Sulfametho* Other: See Comments Get's blisters on his penis Codeine Rash Keflex [Cephalexin] Other: See Comments Objective BP 128/89 Pulse 98 SpO2 98% Physical Exam Constitutional: Appearance: Normal appearance. Pulmonary: Effort: Pulmonary effort is normal. Genitourinary: Comments: The patient was noted to have a mid shaft hypospadias with pretty significant meatal stenosis. 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 The testicles are bilaterally descended and nontender. Prostate is minimally enlarged, no nodules, nontender Neurological: Mental Status: He is alert and oriented to person, place, and time. ASSESSMENT/PLAN: 1. 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 I recommended that he return for cystoscopy to further evaluate his urethral anatomy. I went over this procedure in detail with him today. We discussed potential risks, benefits, and alternatives. The patient expressed understanding of the procedure as well as its attendant risks and wants to proceed. - UA DIP, URINE (POC) - URINE CULTURE 2. Benign prostatic hyperplasia with weak urinary stream - ICD9: 600.01, 788.62, ICD10: N40.1, R39.12 The patient's prostate is only minimally enlarged. I doubt that this is contributing significantly to his lower urinary tract symptoms. We will get an up-to-date PSA on him. - PROSTATE-SPECIFIC ANTIGEN DIAGNOSTIC Dawna Shah MD Follow Up Return for Cysto, Consent. Allergies As of Date: 06/04/2024 Noted Allergy Reaction BACTRIM (SULFAMETHOXAZOLE-TRIMETH*05/08 14 - Other: See Comments Comments: Get's blisters on his penis CODEINE 06/24/2017 2 - Rash KEFLEX (CEPHALEXIN) 06/24/2017 14 - Other: See Comments Date Reviewed: 06/04/2024 Reviewed by: Debi Haines - Fully Assessed Reason for Visit: Consult [173] Cmt: Acute cystitis with hematuria, dysuria, hx of hypospadias repair. Pt stated he did have an infection and has finished his antibiotics. He did state at one point he did have frequency and would leak a little. Prim (more content not included)... Normal [facility] PROSTATE-SPECIFIC ANTIGEN DI AGNOSTICon 06-04-2024 Prostate specific Ag [Mass/Vol] 0.22 ng/mL NINF - 2.60 ng/mL [facility] Comment on above: Total PSA test metho dology used is the Electrochemiluminescence Immunoassay by [employer]. Total PSA values by differing methodologies cannot be interchanged. PSA SerPl-mCncon 06-04-2024 Prostate specific Ag [Mass/Vol] 0.22 ng/mL Normal <2.60 [facility] Comment on above: Order Comment: Speci men Type: BLOOD SPECIMENOrdering Facility: [facility] Address: [address] [place] [address] [place] [address] Result Comment: Tota l PSA test methodology used is the Electrochemiluminescence Immunoassay by [employer]. Total PSA values by differing methodologies cannot be interchanged. Performed By: #### 2 857-1 ####[facility] LABCLIA [id number] [place] [address] [place] Prostate specific Ag [Mass/V ol]on 06-04-2024 Interpretation and review of laboratory results Normal [facility] UA DIP, URINE (POC)on 2023 BILIRUBIN UA (POCT) Negative Negative [facility] CLARITY UA (POCT) Clear [facility] COLOR UA (POCT) Yellow [facility] GLUCOSE UA (POCT) Negative Negative mg/dL [facility] Hemoglobin Ql (U) Negative Negative [facility] Interpretation and review of laboratory results Abnormal [facility] KETONE UA (POCT) Negative Negative mg/dL [facility] LEUKOCYTES UA (POCT) Small Abnormal Negative [facility] NITRITE UA (POCT) Negative Negative [facility] PH UA (POCT) 6.0 4.5 - 8.0 [facility] Protein Ql (U) Trace Abnormal Negative mg/dL [facility] SPECIFIC GRAVITY UA (POCT) 1.015 1.005 - 1.030 [facility] UROBILINOGEN UA (POCT) 0.2 Normal E.U./dL [facility] Location:[facility] Urolog , [address] [place] [address] Dr. Velazquez [facility], [place], [place], [address] [place] [address] POINT OF CARE [facility] URINE CULTUREon 05-01-2024 Bacteria identified Cx Nom (U) -- RUN DATE: 05/03/24 Laboratory LIVE PAGE 1 RUN TIME: 1248 Specimen Inquiry RUN USER: INTERFACE -- [facility] Department of Laboratories [address] [place] [address] PATIENT: DAWNA TIPTON LOC: [facility] U #: [id number] HOME PHONE: AGE/SX: 59/M ROOM: RE05/01/[address]: Amber VickO.B.: [birth year] BED: DIS: STATUS: REG REF LAB O/S: -- Specimen: [id number] Collected: 05/01/24 Status: FAN Manzanares#: [id number] Received: 05/01/24 Source: ISAC Vaughan Desc: Fernando Dr: Amber Vick Ordered: URINE CULTURE -- Procedure Result Verified -- > URINE CULTURE Final 05/03/24-1247 COLONY COUNT > 100,000 COLONIES/ML HEAVY ESCHERICHIA COLI (ESCCOL) LIGHT GRAM POSITIVE COCCI (THREE TYPES) RARE GRAM POSITIVE RODS ESCCOL M.I.C. RX AUGMENTIN 8 S AMPICILLIN >=32 R CEFAZOLIN <=4 S CEFEPIME <=1 S CEFTRIAXONE <=1 S CEFTIN 2 S CEFUROX-NA 2 S CIPROFLOX <=0.25 S GENTAMICIN <=1 S NITROFURAN <=16 S PIP-TAZO/ZOSYN <=4 S TETRACYCLINE <=1 S TMP-SMX/BACTRIM <=20 S TOBRAMYCIN <=1 S LEVOFLOXACIN <=0.12 S -- END OF REPORT Normal [facility] Comment on above: Performed By: #### C NADIYA #### [facility] [address] [address] CBC and Differentialon 06-24 Abs Baso 0.06 k/uL Normal 0.00-0.10 [facility] Comment on above: Performed By: #### C BCJASWANTF, CMP ####[facility] [address] [place] [address] Abs Woodruff 0.65 k/uL Normal 0.00-0.86 [facility] Comment on above: Performed By: #### C BCDIF, CMP ####[facility] [address] [place] [address] Abs Neut 5.61 k/uL Normal 1.45-7.50 [facility] Comment on above: Performed By: #### C BCDIF, CMP ####[place] [address] Basophils/100 WBC Auto (Bld) 0.7 % Normal [facility] Comment on above: Performed By: #### C BCTREY CMP ####[place] [address] Eosinophils 0.35 10*3/uL Normal 0.00-0.45 [facility] Comment on above: Performed By: #### C BCTREY CMP ####[place] [address] Eosinophils/100 leukocytes 4.1 % Normal [facility] Comment on above: Performed By: #### C BCTREY CMP ####[place] [address] Erythrocyte distribution width Auto Ratio (RBC) 14.3 % Normal 11.5-15.0 [facility] Comment on above: Performed By: #### C BCTREY CMP ####[place] [address] Erythrocytes (RBC) 4.85 10*6/uL Normal 4.20-6.00 [facility] Comment on above: Performed By: #### C BCDIF, CMP ####[place] [address] Hematocrit (HCT) 43.6 % Normal 39.0-51.0 [facility] Comment on above: Performed By: #### C BCDIF, CMP ####[place] [address] Hemoglobin mass conc (Bld) 14.4 g/dL Normal 13.0-17.0 [facility] Comment on above: Performed By: #### C BCDIF, CMP ####[facility] [address] [place] [address] Lymphocytes 1.81 10*3/uL Normal 1.00-4.00 [facility] Comment on above: Performed By: #### C BCDIF, CMP ####[facility] [address] [place] [address] Lymphocytes/100 leukocytes 21.3 % Normal [facility] Comment on above: Performed By: #### C BCDIF, CMP ####[facility] [address] [place] [address] MCH 29.7 pG Normal 26.0-34.0 [facility] Comment on above: Performed By: #### C BCDIF, CMP ####[facility] [address] [place] [address] MCHC mass conc (RBC) 33.0 g/dL Normal 30.5-36.0 [facility] Comment on above: Performed By: #### C BCDIF, CMP ####[place] [address] MCV 89.9 fL Normal 80.0-100.0 [facility] Comment on above: Performed By: #### C BCDIF, CMP ####[place] [address] Monocytes/100 leukocytes 7.7 % Normal [facility] Comment on above: Performed By: #### C BCDIF, CMP ####[facility] [address] [place] [address] Neutrophils/100 WBC Auto (Bld) 66.2 % Normal [facility] Comment on above: Performed By: #### C BCDIF, CMP ####[place] [address] Platelet mean volume (PMV) 9.1 fL Normal 9.0-12.7 [facility] Comment on above: Performed By: #### C BCDIF, CMP ####[facility] [address] [place] [address] Platelets 268 10*3/uL Normal 150-400 [facility] Comment on above: Performed By: #### C BCDIF, CMP ####[facility] [address] [place] [phone] WBC (Leukocytes) 8.48 10*3/uL Normal 3.70-11.00 [facility] Comment on above: Performed By: #### C RAFAEL, CMP ####[facility] Xepyn[address]zhqm4690 [phone] CT ABD/PEL WO IVCONon 2016 CT ABD/PEL WO IVCON * * *Final Report* * *DATE OF EXAM: Jun 24 2017 12:58PM [facility] [place], [place] 0531 - CT ABD/PEL WO IVCON / REASON: Hematuria * * * * Physician Interpretation * * * * EXAMINATION: CT ABDOMEN AND PELVIS WITHOUT IV CONTRASTCLINICAL HISTORY: Hematuria, possible kidney stonesTECHNIQUE: Non-IV contrast imaging of the abdomen and pelvis was performed using standard technique, scanning from just above the dome of the diaphragm to the symphysis pubis. Unenhanced imaging is limited for the evaluation of some intra-abdominal and pelvic pathology.M: [id number]_3Contrast:IV: None : ml ofCT Radiation dose: Integrated Dose-length product (DLP) for this visit = 816 mGy*cm.CT Dose Reduction Employed: Automated exposure control (AEC)COMPARISON: None.RESULT:Abdomen / Pelvis:Liver: Unremarkable.Biliary: The gallbladder is unremarkable.Spleen: No splenomegaly.Pancreas: Unremarkable.Adrenals: 1.3 cm low-density right adrenal nodule favoring an adenoma.Kidneys: No hydronephrosis. No nephroureterolithiasis. Bladder wall thickening and perivesical fat stranding.GI Tract: Nonspecific air-fluid levels within prominent jejunal loops in the left upper quadrant measuring up to 3 cm in diameter without transition. Normal appendix.Lymph Nodes: Numerous nonenlarged retroperitoneal nodes.Mesentery/peritoneum: No ascites.Retroperitoneum: No mass.Vasculature: No abdominal aortic or iliac artery aneurysm.Pelvis: No mass or ascites.Bones/Soft Tissues: No aggressive osseous lesions.Lower thorax: Noncontributory.IMPRESSION:Fin dings favor cystitis. Correlate with urinalysis.No obstructive uropathy or nephroureterolithiasis.======= ===Program Director/Air Personality: CLARISA Transcribe Date/Time: Jun 24 2017 1:02PDictated by : NINA PERAZA MDThializa examination was interpreted and the report reviewed and electronically signed by: NINA PERAZA MD on Jun 24 2017 1:06PM EST Normal [facility] Comp Metabolic Panelon 06-24 Alanine aminotransferase (ALT) 22 U/L Normal 5-50 [facility] Comment on above: Performed By: #### C BCDIF, CMP ####[facility] [address] [place] [address] Albumin 4.1 g/dL Normal 3.5-5.0 [facility] Comment on above: Performed By: #### C BCDIF, CMP ####[place] [address] Alkaline phosphatase (ALP) 56 U/L Normal 40-150 [facility] Comment on above: Performed By: #### C BCDIF, CMP ####[place] [address] Anion gap 12 mmol/L Normal 0-15 [facility] Comment on above: Performed By: #### C BCDIF, CMP ####[place] [address] Aspartate aminotransferase (AST) 20 U/L Normal 7-40 [facility] Comment on above: Performed By: #### C BCDIF, CMP ####[place] [address] Bilirubin (total) 0.4 mg/dL Normal 0.0-1.5 [facility] Comment on above: Performed By: #### C BCDIF, CMP ####[place] [address] Calcium 9.0 mg/dL Normal 8.5-10.5 [facility] Comment on above: Performed By: #### C BCDIF, CMP ####[place] [address] Chloride 105 mmol/L Normal 98-110 [facility] Comment on above: Performed By: #### C BCDIF, CMP ####[facility] [address] [place] [address] CO2 25 mmol/L Normal 23-32 [facility] Comment on above: Performed By: #### C BCDIF, CMP ####[facility] [address] [place] [address] Creatinine 0.76 mg/dL Normal 0.70-1.40 [facility] Comment on above: Performed By: #### C BCDIF CMP ####[facility] [address] [place] [address] eGFR (non-black) mL/min/{1.73_m2} Normal [facility] Comment on above: Performed By: #### C BCDIF CMP ####[facility] [address] [place] [address] Result Comment: eGFR (Estimated GFR) Units of measure: mL/min/1.73 meters squaredeGFR is derived from the reexpressed MDRD Study equation using the following parameters: serum creatinine, age, gender and race. The creatinine assay has been calibrated to be traceable to IDMS.An eGFR <60 mL/min/1.73m2 for >3 months is consistent with chronic kidney disease. Refer to KDOQI guidelines for clinical interpretation.In patients with unstable renal function, e.g. those with acute kidney injury, the eGFR may not accurately reflect actual GFR. Glucose mass conc 95 mg/dL Normal 65-100 [facility] Comment on above: Performed By: #### C BCJASWANTF CMP ####[facility] [address] [place] [address] Potassium molar conc 4.3 mmol/L Normal 3.5-5.0 [facility] Comment on above: Performed By: #### C BCJASWANTF CMP ####[facility] [address]soj4834 [place] [address] Protein 7.2 g/dL Normal 6.0-8.4 [facility] Comment on above: Performed By: #### C BCDIF CMP ####[place] [address] Sodium 142 mmol/L Normal 135-146 [facility] Comment on above: Performed By: #### C BCDIF CMP ####[facility] [address] [place] [address] Urea nitrogen 9 mg/dL Low 10-25 [facility] Comment on above: Performed By: #### C BCDIF, CMP ####[facility] [address] [place] [phone] ED NOTEon 06-24-2017 ED NOTE HNO ID: [id number] thor: Viola Parks) JENNIFER Lebronervice: (none)Author Type: Registered NurseType: ED NotesFiled: 06/24/2017 1:50 PMNote Text: Patient in stable condition upon discharge, resp even and unlabored. Nodistress noted. Patient denies any pain at this time. Discharge and followup reviewed, plan of care is agreed upon. Patient thankful for care [facility] ED NOTE HNO ID: [id number] Author: Viola Parks) JONNY Lebron Service: (none) Author Type: Registered Nurse Type: ED Notes Filed: 06/24/2017 12:42 PM Note Text: Urine specimen obtained and sent. [facility] ED PROV NOTEon 06-24-2017 ED PROV NOTE HNO ID: [id number] thor: Danielito Garcia) Jethro: (none)Author Type: Physician AssistantType: ED Provider NotesFiled: 06/24/2017 1:42 PMNote Text:ED Provider NotePatient Name: Dawna HuangFrancescoRN: [id number] DATE: 06/24/17HistoryPatient presents with:UTIHPI Comments: This is a 52-year-old male patient who comes in with somegross hematuria this morning. He actually had the symptoms about 4 yearsago and saw urology and tells me that they told him he had some prominentvessels on his prostate which caused the bleeding. He tells me that hedid not have any issues with his bladder at the time. He had somebleeding yesterday and then had some burning afterwards and then itstopped and he got up this morning again and noticed a couple more bloodclots with some burning after and then it sort of cleared up. He has beenfeeling well otherwise. He does have some mild intermittent right flankpain which she really doesn't have now. He does not have any abdominaldiscomfort. He's been going to work regularly without any difficulty. Hedenies any abdominal pain or vomiting. He denies any diarrhea or blood inhis stool. He denies any recent urethral instrumentation. He's had nofever or chills. 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 used: NoNo past medical history on file.No past surgical history on file.No family history on file.Social HistorySocial History Main Topics- Smoking status: Not on file- Smokeless tobacco: Not on file- Alcohol use Not on file- Drug use: Not on file- Sexual activity: Not on fileALLERGIESAllergen Reactions- Codeine Rash- Keflex [Cephalexin] Other: See CommentsReview of SystemsConstitutional: Negative for activity change, appetite change, chills andfever.HENT: Negative.Respiratory: Negative for choking, chest tightness and shortness ofbreath.Gastrointestinal: Negative for abdominal pain, blood in stool, nausea andvomiting.Genitourinary: Positive for difficulty urinating, dysuria, flank pain,hematuria and urgency. Negative for decreased urine volume, penile pain,penile swelling and scrotal swelling.Neurological: Negative for dizziness, weakness and headaches.Physical ExamBP 136/79 Pulse 77 Temp 97.9 Resp 18 Wt 248 lb (112.5kg) [id number]%Physical ExamConstitutional: He is oriented to person, place, and time. He appearswell-developed and well-nourished.HENT:Head: Normocephalic and atraumatic.Eyes: EOM are normal. Pupils are equal, round, and reactive to light.Neck: Normal range of motion.Cardiovascular: Normal rate, regular rhythm and normal heart sounds.Pulmonary/Chest: Effort normal. No respiratory distress.Abdominal: Soft. Bowel sounds are normal. He exhibits no distension and nomass. There is no tenderness. There is no rebound and no guarding.No CVA tenderness to the back.Musculoskeletal: Normal range of motion.Neurological: He is alert and oriented to person, place, and time.Skin: Skin is warm and dry.Psychiatric: He has a normal mood and affect.Nursing note and vitals reviewed.Diagnostic TestingED Labs Ordered and ReviewedCOMP METABOLIC PANEL - Abnormal; Notable for the following: Result Value Ref Range BUN 9 (*) 10 - 25 mg/dL All other components within normal limitsURINALYSIS - Abnormal; Notable for the following: Appearance (U) Slightly Hazy (*) Clear Hemoglobin/Blood,Ur Small (*) Negative Leukest Large (*) Negative All other components within normal limitsURINE MICROSCOPIC - Abnormal; Notable for the following: WBC, Urine 30-50 (*) 0 - 5 /HPF RBC, Urine 10-30 (*) 0 - 3 /HPF Cast SEE COMMENT (*) 0 /LPF Bacteria Moderate (*) 0 /HPF All other components within normal limitsCBC + DIFFURINE CULTUREProcedures- NoneCT abd/pelvis non-contrast:Findings favor cystitis. ?Correlate with urinalysis.No obstructive uropathy or nephroureterolithiasisMedical Decision Making / ED CourseED CourseThe patient has remained stable here in the ED. His urine does have whitecells, blood, and bacteria. He did have the same symptoms about 4 yearsago and did follow up with urology. I think this may be coming from hisprostate rather than just a regular UTI. I did encourage him to follow upwith urology in the next week. He looks well. He does not have a fever.I will place him on Bactrim for 14 days however told him he may needlonger course of antibiotics if this is truly a prostatitis. He is nothave any perineal pain at all. I did send a urine culture and we willcall him if we need to change his antibiotic. He is going to drink plentyof fluids at home and follow up with urology. He is to return back forany new or worsening symptoms including any worsening hematuria, pain,fever, or other concerning symptoms. I did talk to him about smokingcessation. He does smoke about a pack and a half a day. I told him thatthis could contribute to bladder cancer however he did have cystoscopy assounds like about 4 years ago that did not show any issues with hisbladder. I did tell him that he may need another cystoscopy in the nearfuture. The patient understands and he is stable on discharge.Encounter Diagnosis ICD-10-CM1. Cystitis N30.90PlanThe Patient was DISCHARGED: Counseled patient regarding lab results ANDradiology results AND suspected diagnosis AND need for follow-up. Dischargedhome with verbal and written instructions. They were instructed to returnas needed for persistent or worsening symptoms or any new concerns.Condition at time of disposition: stableSIGNATURE: Vickie Perez (Alexander) Fufepipcam92/19/17 1342 Normal [facility] Urinalysison 06-24-2017 Bilirubin, Urine Negative Normal Negative [facility] Comment on above: Performed By: #### U A, UAMIC ####[facility] [address] [place] [address] Hemoglobin mass conc (Bld) Small Critically abnormal Negative [facility] Comment on above: Performed By: #### U A, UAMIC ####[facility] A[address]trdrn4143 [place] [address] Leukest Large Critically abnormal Negative [facility] Comment on above: Performed By: #### U A, UAMIC ####[facility] [address] [place] [address] pH of blood 6.5 [pH] Normal 5.0-8.0 [facility] Comment on above: Performed By: #### U A, UAMIC ####[facility] [address] [place] [address] Protein, Urine Negative Normal Negative [facility] Comment on above: Performed By: #### U A, UAMIC ####[facility] [address] [place] [address] Specific [place], Ur 1.015 Normal 1.001-1.02 9 [facility] Comment on above: Performed By: #### U A, UAMIC ####[facility] [address]sc[address] [place] [address] Urine, clarity Slightly Hazy Critically abnormal Clear [facility] Comment on above: Performed By: #### U A, UAMIC ####[facility] [address]xdh1233 [place] [address] Urine, color Yellow Normal Yellow [facility] Comment on above: Performed By: #### U A, UAMIC ####[facility] Pom[address]cm[address]vg8247 [place] [address] Urine, glucose presence Negative Normal Negative [facility] Comment on above: Performed By: #### U A, UAMIC ####[facility] Of[address]zyljne1236 [place] [address] Urine, ketones presence Negative Normal Negative [facility] Comment on above: Performed By: #### U A, UAMIC ####[facility] [address]f65[address] [place] [address] Urine, nitrite presence Negative Normal Negative [facility] Comment on above: Performed By: #### U A, UAMIC ####[facility] [address] [place] [address] Urine, urobilinogen 0.2 Normal 0.2-1.0 [facility] Comment on above: Performed By: #### U A, UAMIC ####[facility] [address] [place] [address] Urine Cultureon 06-24-2017 Urine culture, bacteria Sp. Request/Comment: - Specimen received in preservativeCulture Result - 10,000 - <50,000 CFU/ml Lactose positive gram negative bacilli --> ABNORMAL ALERT Insignificant colony count. No further workup. --> ABNORMAL ALERT 10,000 - <50,000 CFU/ml Normal urogenital moise Critically abnormal [facility] Comment on above: Performed By: #### U RCUL ####[facility] [address] [place] [address] [address] [place], [place] [phone] Urine Microscopic (FOR LAB U SE ONLY)on 06-24-2017 Cast SEE COMMENT Critically abnormal 0 [facility] Comment on above: Result Comment: 1-3F inely Granular Cast Performed By: #### U A, UAMIC ####[facility] [address] [place] [address] Erythrocytes (RBC) 10-30 Critically abnormal 0-3 [facility] Comment on above: Performed By: #### U A, UAMIC ####[facility] [address] [place] [address] Urine, bacteria in sediment Moderate Critically abnormal 0 [facility] Comment on above: Performed By: #### U A, UAMIC ####[facility] [address] [place] [address] Urine, epithelial cells in sediment SEE COMMENT Normal [facility] Comment on above: Result Comment: 5-10 Squamous Epithelial Cells Performed By: #### U A, UAMIC ####[facility] [address] [place] [address] WBC (Leukocytes) 30-50 Critically abnormal 0-5 [facility] Comment on above: Performed By: #### U A, UAMIC ####[facility] [address] [place] [phone] Vital Signs Date Time Vital Sign Value Performing Clinician Christianocarolyn zaragoza 01-20-2025 08:46-0400 Body height 180.3 cm Marielena Rivera MD Work Phone: [facility] 01-20-2025 08:46-0400 Body mass index (BMI) [Ratio] 44 kg/m2 Marielena Rivera MD Work Phone: [facility] 01-20-2025 08:46-0400 Body weight 143.1 kg Marielena Rivera MD Work Phone: [facility] 01-20-2025 08:46-0400 Diastolic blood pressure 72 mm[Hg] Marielena Rivera MD Work Phone: [facility] 01-20-2025 08:46-0400 Heart rate 93 /min Marielena Rivera MD Work Phone: [facility] 01-20-2025 08:46-0400 SaO2% (BldA) [Mass fraction] 98 % Marielena Rivera MD Work Phone: [facility] 01-20-2025 08:46-0400 Systolic blood pressure 128 mm[Hg] Marielena Rivera MD Work Phone: [facility] 10-28-2024 08:31-0500 Diastolic blood pressure 88 mm[Hg] Dawna Shah MD Work Phone: [facility] 10-28-2024 08:31-0500 Heart rate 97 /min Dawna Shah MD Work Phone: [facility] 10-28-2024 08:31-0500 SaO2% (BldA) [Mass fraction] 99 % Dawna Shah MD Work Phone: [facility] 10-28-2024 08:31-0500 Systolic blood pressure 128 mm[Hg] Dawna Shah MD Work Phone: [facility] 07-29-2024 10:33-0400 Diastolic blood pressure 83 mm[Hg] Dawna Shah MD Work Phone: [facility] 07-29-2024 10:33-0400 Heart rate 114 /min Dawna Shah MD Work Phone: [facility] 07-29-2024 10:33-0400 SaO2% (BldA) [Mass fraction] 99 % Dawna Shah MD Work Phone: [facility] 07-29-2024 10:33-0400 Systolic blood pressure 128 mm[Hg] Dawna Shah MD Work Phone: [facility] 06-24-2024 10:57-0400 Diastolic blood pressure 98 mm[Hg] Dawna Shah MD Work Phone: [facility] 06-24-2024 10:57-0400 Systolic blood pressure 149 mm[Hg] Dawna Shah MD Work Phone: [facility] 06-24-2024 10:26-0400 Body height 180.3 cm Dawna Shah MD Work Phone: [facility] 06-24-2024 10:26-0400 Body mass index (BMI) [Ratio] 39.61 kg/m2 Dawna Shah MD Work Phone: [facility] 06-24-2024 10:26-0400 Body weight 128.82 kg Dawna Shah MD Work Phone: [facility] 06-24-2024 10:26-0400 Heart rate 94 /min Dawna Shah MD Work Phone: [facility] 06-24-2024 10:26-0400 SaO2% (BldA) [Mass fraction] 99 % Dawna Shah MD Work Phone: [facility] 06-13-2024 10:43-0400 Diastolic blood pressure 121 mm[Hg] Dawna Shah MD Work Phone: [facility] 06-13-2024 10:43-0400 Systolic blood pressure 157 mm[Hg] Dawna Shah MD Work Phone: [facility] 06-04-2024 07:40-0400 Diastolic blood pressure 89 mm[Hg] Dawna Shah MD Work Phone: [facility] 06-04-2024 07:40-0400 Heart rate 98 /min Dawna Shah MD Work Phone: [facility] 06-04-2024 07:40-0400 SaO2% (BldA) [Mass fraction] 98 % Dawna Shah MD Work Phone: [facility] 06-04-2024 07:40-0400 Systolic blood pressure 128 mm[Hg] Dawna Shah MD Work Phone: [facility] Encounters Encounter Date Encounter Type Care Provider Facility Start: 04-14-2025 End: 04-17-2025 Telephone encounter Marielena Rivera MD Work Phone: [facility] Comment on above: Letter Start: 04-04-2025 ambulatory AMBER VICK Facility: [id number] Start: 04-04-2025 End: 04-04-2025 Subsequent hospital visit by physician [facility] Rad[facility] Comment on above: Encounter for screen ing for cardiovascular disorders [Z13.6] Start: 03-03-2025 End: 03-03-2025 ambulatory AMBER VICK Facility:[id number] Start: 02-14-2025 ambulatory AMBER VICK Facility: [id number] Start: 02-14-2025 End: 02-14-2025 Subsequent hospital visit by physician [facility] 2 [facility] Comment on above: Essential hypertensi on [I10] Start: 01-31-2025 ambulatory MARIELENA RIVERA Facility:1 [id number] Start: 01-31-2025 End: 01-31-2025 Subsequent hospital visit by physician [place] [address] Scan Comment on above: Dyspnea, unspecified type [R06.00] Start: 01-27-2025 ambulatory Amber Vick Facility: [facility] Start: 01-20-2025 End: 01-20-2025 Patient encounter procedure Marielena Rivera MD Work Phone: [facility] Comment on above: Essential hypertensi on (Primary Dx); Longstanding persistent atrial fibrillation (HCC); Dyspnea, unspecified type; Dyslipidemia; Tobacco abuse; Chronic obstructive pulmonary disease, unspecified COPD type (HCC); Encounter for screening for cardiovascular disorders Start: 01-20-2025 End: 01-20-2025 ambulatory AMBER VICK Facility:[id number] Start: 10-28-2024 End: 10-28-2024 Patient encounter procedure Dawna Shah MD Work Phone: [facility] Comment on above: 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); Benign prostatic hyperplasia with weak urinary stream Start: 10-28-2024 End: 10-28-2024 ambulatory AMBER VICK Facility:[id number] Start: 07-29-2024 End: 07-29-2024 Patient encounter procedure Dawna Shah MD Work Phone: [facility] Comment on above: Retention of urine ( Primary Dx); 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 Start: 07-29-2024 End: 07-29-2024 ambulatory AMBER VICK Facility:[id number] Start: 06-25-2024 End: 07-17-2024 Telephone encounter Amelia Nur APRN.CNP Work [facility] [facility] Comment on above: Orders Start: 06-24-2024 End: 06-24-2024 Patient encounter procedure Dawna Shah MD Work Phone: [facility] Comment on above: Other stricture of o verlapping sites of urethra in male (Primary Dx) Start: 06-24-2024 End: 06-24-2024 ambulatory DAWNA SHAH Facility:[id number] Start: 06-21-2024 End: 06-21-2024 ambulatory DAWNA SHAH Facility:[id number] Start: 06-13-2024 End: 06-13-2024 Patient encounter status Ekg [facility] Start: 06-13-2024 End: 06-13-2024 Subsequent hospital visit by physician Ekg [facility] CARDIAC TESTING Comment on above: Preoperative testing [Z01.818] Start: 06-13-2024 End: 06-13-2024 ambulatory DAWNA SHAH Facility:[id number] Start: 06-13-2024 Encounter for other preprocedural examination [facility] Start: 06-13-2024 End: 06-13-2024 Patient encounter procedure Dawna Shah MD Work Phone: [facility] Comment on above: Other stricture of o verlapping sites of urethra in male (Primary Dx); Preoperative testing Start: 06-13-2024 End: 06-13-2024 Patient encounter status Dawna Shah MD Work Phone: [facility] Work Phone: Start: 06-13-2024 End: 06-13-2024 ambulatory DAWNA SHAH Facility:[id number] Start: 06-04-2024 End: 06-04-2024 Patient encounter procedure Dawna Shah MD Work Phone: [facility] Comment on above: Other stricture of o verlapping sites of urethra in male (Primary Dx); Benign prostatic hyperplasia with weak urinary stream Start: 06-04-2024 End: 06-04-2024 ambulatory CHELE BHARDWAJ AMINA Facility:[id number] Start: 05-01-2024 ambulatory Amber Vick Facility: [facility] Start: 04-04-2023 ambulatory LARS Kang lity:UNI Start: 04-04-2023 End: 04-04-2023 Subsequent hospital visit by physician Provider [facility] Start: 02-15-2023 End: 02-17-2023 Patient encounter procedure Psg [facility] Work Phone: [facility] Comment on above: CHUYITA on CPAP (Primary Dx) Start: 04-06-2022 End: 04-06-2022 Subsequent hospital visit by physician Provider [facility] Comment on above: T8 CASANDRA Start: 09-22-2021 End: 09-22-2021 Subsequent hospital visit by physician Provider [facility] Comment on above: T8 CASANDRA [facility] Start: 09-06-2020 Patient encounter procedure Felicitas BRAY-C Work Phone: [facility] Start: 09-06-2020 Progress Note Felicitas Yasir PA-C Work Phone: [facility] Start: 06-24-2017 End: 06-24-2017 Emergency department [facility] Procedures Date Procedure Procedure Detail Performing Clinician Start: 04-04-2025 Myocardial spect mul tiple studies Marielena Rivera MD Work Phone: Start: 02-14-2025 Echo tthrc r-t 2d w/wom-mode compl spec&colr d Marielena Rivera MD Work Phone: Start: 01-31-2025 Ct heart no contrast quant eval coronry calcium Marielena Rivera MD Work Phone: Start: 01-20-2025 Ecg routine ecg w/le ast 12 lds i&r only Marielena Rivera MD Work Phone: Start: 06-24-2024 Follow-up visit Follow Up DAWNA SHAH Start: 06-13-2024 Ecg routine ecg w/le ast 12 lds i&r only Dawna Shah MD Work Phone: Start: 06-04-2024 Urnls dip stick/tabl et rgnt auto w/o microscopy Dawna Shah MD Work Phone: Plan of Treatment Date Care Activity Detail Author Start: 10-14-2029 Urine microalbumin profile DTa P,Tdap,Td Vaccine (2 - Td or Tdap) [facility] Start: 06-04-2029 Prostate specific an tigen measurement Prostate Cancer Screening Discussion [facility] Start: 06-13-2027 Diabetes Screening Diabetes Screenin g [facility] Start: 03-03-2026 BP Controlled (<130/80) BP Controlle d (<130/80) [facility] Start: 03-03-2026 End: 03-03-2026 Patient encounter procedure 03/03/2026 8:40 AM EDT Office Visit [facility] [address] [place] [address] [place] [address] Ngozi Berrios APRN.[address] [place], [place] [id number] 1 year follow up [facility] Comment on above: 1 year follow up Start: 01-20-2026 BP Controlled (<130/80) BP Controlle d (<130/80) [facility] Start: 07-07-2025 Influenza vaccination Influenz a Vaccine (Season Ended) [facility] Start: 06-30-2025 End: 06-30-2025 Patient encounter procedure 06/30/2025 8:45 AM EDT Office Visit [facility] [address] [place] [address] Dawna Shah MD [address] [place] [address] [address] [place], [place] [id number] 8 months (around 06/28/2025) for PSA prior. [facility] Comment on above: 8 months (around 06/07) for PSA prior. Start: 06-23-2025 End: 09-22-2025 Prostate specific Ag [Mass/volume] in Serum or Plasma PROSTATE-SPECIFIC ANTIGEN DIAGNOSTIC Lab Routine Benign prostatic hyperplasia with weak urinary stream Expected: 06/23/2025, Expires: 09/22/2025 [facility] Work Phone: Comment on above: Expected: 06/23/2025 , Expires: 09/22/2025 Start: 03-03-2025 End: 03-03-2025 Patient encounter procedure 03/03/2025 9:00 AM EDT Office Visit [facility] [address] [place] [address] [place] [phone] Marielena Rivera MD [address] [place] [address] , [address] [place] [address] 6 weeks Calcium score and Echo [facility] Comment on above: 6 weeks Calcium scor e and Echo Start: 02-14-2025 End: 02-14-2025 Patient encounter procedure 02/14/2025 9:00 AM EDT Appointment [facility] [address] [place] [id number] Essential hypertension [I10] [facility] Comment on above: Essential hypertensi on [I10] Start: 01-31-2025 End: 01-31-2025 Patient encounter procedure 01/31/2025 11:30 AM EDT Appointment Radiology CT Scan [address] [place] [address] CT CALCIUM SCORING (CARDIAC) WO IVCON, Dyspnea, unspecified type [R06.00] Radiology CT Scan Comment on above: CT CALCIUM SCORING ( CARDIAC) WO IVCON, Dyspnea, unspecified type [R06.00] Start: 01-20-2025 End: 01-20-2026 Echocardiography ECHO Cardiology Routine Essential hypertension Dyspnea, unspecified type Expected: 01/20/2025, Expires: 01/20/2026 [facility] Work Phone: Comment on above: Expected: 01/20/2025 , Expires: 01/20/2026 Start: 01-13-2025 End: 01-13-2025 Patient encounter procedure 01/13/2025 10:15 AM EDT Office Visit [facility] [address] [place] [address] Troy Galan DO [address] [place] [address] [address] [place], [place] [id number] New Patient Referral-Amber Vick-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-AFib w/normal ventricular rate [facility] Comment on above: New Patient Referral -Amber Nicanor-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-AFib w/normal ventricular rate Start: 10-28-2024 End: 10-28-2024 Patient encounter procedure 10/28/2024 9:00 AM EST Office Visit [facility] [address] [place] [id number] Dawna Shah MD [address] [place] [address] [address] [place], [place] [id number] 3 mo f/u [facility] Comment on above: 3 mo f/u Start: 07-29-2024 End: 07-29-2024 Patient encounter procedure 07/29/2024 10:45 AM EDT Office Visit [facility] [address] [facility] [place] [address] Dawna Shah MD [address] [place] [address] [address] [place], [place] [id number] 1 mo f/u [facility] Comment on above: 1 mo f/u Start: 07-07-2024 Covid-19 Vaccine ( season) Covid-19 Vaccine ( season) [facility] Start: 07-07-2024 Covid-19 Vaccine ( season) Covid-19 Vaccine () [facility] Start: 07-07-2024 Influenza vaccination Influenza Vacc ine (#1) [facility] Start: 06-21-2024 End: 06-21-2024 Admission to same day surgery center 06/21/2024 10:15 AM EDT - 06/21/2024 11:15 AM EDT Surgery [facility] [address] [place] [address] Dawna Shah MD [address] [place] [address] [place] [address] CYSTOSCOPY [facility] Comment on above: CYSTOSCOPY Start: 06-21-2024 End: 06-21-2024 Cystourethroscopy CYSTOSCOPY 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 06/21/2024 10:15 AM EDT UN OR Start: 06-21-2024 Subsequent hospital visit by physician 06/21/2024 10:15 AM EDT Hospital Encounter [facility] [address] [place], [place] [id number] Dawna Shah MD [address] [place] [address] [place] [address] 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 [N35.816] [facility] Comment on above: Other stricture of o verlapping sites of urethra in male [N35.816] Start: 06-13-2024 End: 09-12-2024 Bacteria identified in Urine by Culture URINE CULTURE Microbiology Routine 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 Start: 11-06-2022 DEPRESSION ASSESSMENT DEPRESSION ASS ESSMENT [facility] Start: 2022 PROSTATE CANCER SCRE ENING DISCUSSION PROSTATE CANCER SCREENING DISCUSSION [facility] Start: 06-24-2020 DIABETES SCREEN DIABETES SCREEN [facility] Start: 06-24-2020 Diabetes Screening Diabetes Screenin g [facility] Start: 02-24-2020 Shingrix Vaccine (2 of 3) Roger grix Vaccine (2 of 3) [facility] Start: 2017 SHINGRIX VACCINE (1 of 2) ROGER GRIX VACCINE (1 of 2) [facility] Start: 02-19-2012 COLOGUARD (FIT-DNA) COLOGUARD (FIT-D NA) [facility] Start: 02-19-2012 Colonoscopy COLONOSCOPY [facility] Start: 02-19-2012 COLORECTAL CANCER SCREENING COLORECTAL CANCER SCREENING [facility] Start: 02-19-[address] COLONOGRAPHY [facility] Start: 02-19-2012 FECAL OCCULT BLOOD FECAL OCCULT BLOO D [facility] Start: 02-19-2012 Screening for malign ant neoplasm of colon [facility] Start: 02-19-[address] [facility] Start: 2002 Lipid 1996 panel - S sherrie or Plasma Lipid Screening [facility] Start: 2002 Lipid panel Lipid Screening [facility] Start: 2002 LIPID SCREEN LIPID SCREEN [facility] Start: 1997 Zoledronic acid therapy Alpha- 1 Antitrypsin Deficiency Screening [facility] Start: 1986 Hepatitis B Vaccine (1 of 3 - 19+ 3-dose series) Hepatitis B Vaccine (1 of 3 - 19+ 3-dose series) [facility] Start: 1986 Pneumococcal Vaccine : 50+ (1 of 2 - PCV) Pneumococcal Vaccine: 50+ (1 of 2 - PCV) [facility] Start: 1986 Urine microalbumin profile [facility] Start: 1985 Annual PCP Team Can Inspector darby Disease Visit Annual PCP Team Chronic Disease Visit [facility] Start: 1985 Anxiety Screening Anxiety Screening [facility] Start: 1985 BP Controlled (<130/80) BP Controlle d (<130/80) [facility] Start: 1985 HEPATITIS C SCREENING HEPATITIS C [facility] Start: 1985 Hepatitis C screening Hepatitis C [facility] Start: 1985 HIV SCREENING HIV SCREENING [facility] Start: 1985 HIV screening HIV Screening [facility] Start: 1985 Spirometry Spirometry [facility] Start: 1973 Pneumococcal vaccination Pneum ococcal Vaccine (1 of 2 - PCV) [facility] Start: 1967 COVID-19 VACCINE (#1) COVID-19 VACCI NE (#1) [facility] Start: 1967 HEPATITIS B (1 of 3 - 3-dose series) HEPATITIS B (1 of 3 - 3-dose series) [facility] Start: 1967 Hepatitis B Vaccine (1 of 3 - 3-dose series) Hepatitis B Vaccine (1 of 3 - 3-dose series) [facility] Bacteria identified in Urine by Culture URINE CULTURE Microbiology Routine 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 06/04/2024 8:06 AM EDT [facility] End: 02-19-2026 CT Heart and Coronary arteries for calcium scoring WO contrast CT CALCIUM SCORING (CARDIAC) WO IVCON Radiology Routine Dyspnea, unspecified type Essential hypertension Dyslipidemia Tobacco abuse Encounter for screening for cardiovascular disorders 1 Occurrences starting 01/20/2025 until 02/19/2026 [facility] Comment on above: 1 Occurrences starti ng 01/20/2025 until 02/19/2026 ECG COMPLETE ECG COMPLETE ECG Routine Preoperative testing 06/13/2024 11:29 AM EDT [facility] ECG COMPLETE ECG COMPLETE ECG Routine Essential hypertension 01/20/2025 8:58 AM EDT [facility] NM Heart Perfusion W stress and W radionuclide IV NM CARDIAC PERF STRESS/PHARM Radiology Routine Encounter for screening for cardiovascular disorders Coronary artery disease involving [place] coronary artery of tun[place] heart without angina pectoris 04/04/2025 8:55 AM EDT [facility] Work Phone: UA DIP, URINE (POC) UA DIP, URIN E (POC) Lab Routine 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 Ordered: 06/04/2024 [facility] Work Phone: Comment on above: Ordered: 06/04/2024 Immunizations Immunization Date Immunization Notes Care Provider Fa stoney 12-30-2019 zoster vaccine, live Dawna Shah MD Work Phone: [facility] 10-14-2019 influenza, injectabl e, quadrivalent, preservative free Dawna Shah MD Work Phone: [facility] 10-14-2019 tetanus toxoid, redu rj diphtheria toxoid, and acellular pertussis vaccine, adsorbed Dawna Shah MD Work Phone: [facility] 10-14-2019 zoster vaccine, live Dawna Shah MD Work Phone: [facility] 10-14-2019 influenza virus vacc ine, unspecified formulation Provider [facility] Payers Date Payer Category Payer Private Health Insurance MMO S [id number] 2022 Unknown [id number] 2022 Unknown [id number] 2017 Unknown DAVID HARTMAN PPO [id number] 2017-Present [phone] [address] [place] [address] PPO [id number] Social History Date Type Detail Facility [facility] consumption unknown [facility] Start: 1965 Sex Assigned At Not on file C [facility] Start: 02-15-2023 End: 12-01-2023 History of Social function [facility] Start: 02-15-2023 End: 12-01-2023 Area Deprivation Index [facility] National Score (1-10 0), lower number is lower risk 72 [facility] Start: 12-01-2023 End: 06-24-2024 Tobacco smoking status UTIS Smokes tobacco daily [facility] History of tobacco use Cigarette Smoker C [facility] Start: 12-01-2023 End: 06-24-2024 Tobacco use and exposure Smokeless tobacco non-user [facility] Start: 06-04-2024 End: 04-04-2025 Alcohol intake Current drinker of alcohol (finding) [facility] Start: 06-19-2024 Alcohol Comment 5-6 beers/day [facility] Goals Date Patient Goal Desired Activity /State Personal health goal Clinical Notes 09-06-2020 to 04-17-2025 Telephone Encounter - Katja Rogers Tech - 04/17/2025 1:44 PM EDTTelephone Encounter - Katja Rogers Tech - 04/17/2025 1:44 PM EDTTelephone Encounter - Marielena Rivera MD - 04/17/2025 11:32 AM EDT Note Date & Type Note Facility 04-17-2025 Telephone encounter Note Formatting of this note might be differe nt from the original. Spoke with patient and let him know per Dr. Rivera, stress test is normal. 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 [facility] 04-17-2025 Miscellaneous Notes Formatting of this note might be differe nt from the original. Spoke with patient and let him know per Dr. Rivera, stress test is normal. 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 Normal, tell him. Patient stopped in the office today. 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 He also has not received results. He needs the letter soon. Please advise/Thank you Krys Armstrong April 14, 2025 9:43 AM documented in this encounter [facility] 04-17-2025 Telephone encounter Note Formatting of this note might be differe nt from the original. Normal, tell him. [facility] 04-14-2025 Telephone encounter Note Formatting of this note might be differe nt from the original. Patient stopped in the office today. 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 He also has not received results. He needs the letter soon. Please advise/Thank you Krys Armstrong April 14, 2025 9:43 AM [facility] 04-04-2025 History of Present illness Narrative Formatting of this note is different fro m the original. RADIOLOGY SERVICE PROGRESS NOTE SERVICE DATE: 04/04/2025 SERVICE TIME: 8:01 AM PATIENT IDENTITY VERIFICATION COMPLETED USING TWO (2) STANDARD IDENTIFIERS: Name and Date of confirmed by patient verbally and Name and Date of confirmed by identification band FALL SCREENING: Has the patient had 2 falls in the last year or 1 fall with injury or currently using an Ambulatory Assistive Device (Walker, Cane, Wheelchair, Crutches, etc.)? No PATIENT GENDER DATA: .male ALLERGIES: Reviewed and unchanged MEDICATIONS REVIEWED: No PATIENT RELEVANT IMPLANT DATA REVIEWED: Not Applicable PATIENT PRESENTS WITH AN IMPLANTABLE OR ATTACHED HOSPITAL LIAISON: No CREATININE: Creatinine Date Value Ref Range Status 06/13/2024 1.16 0.73 - 1.22 mg/dL Final 06/24/2017 0.76 0.70 - 1.40 mg/dL Final Estimated Glomerular Filtration Rate Date Value Ref Range Status 06/13/2024 73 >=60 mL/min/1.73m Final Comment: Estimated Glomerular Filtration Rate (eGFR) is calculated using the 2020 CKD-EPI creatinine equation. This equation utilizes serum creatinine, sex, and age as parameters. The creatinine assay has traceable calibration to isotope dilution-mass spectrometry. Refer to KDIGO guidelines for clinical interpretation. In patients with unstable renal function, e.g. those with acute kidney injury, the eGFR may not accurately reflect actual GFR. eGFR- Date Value Ref Range Status 06/24/2017 >60 Final P.O.C.T. RESULTS: N/A April 04, [address] PERFORMED: No IV SITE: Ambulatory: A peripheral IV was started in the Right antecubital site with a Angio cath: 22 gauge. POST EXAM PIV STATUS: Discontinued PROCEDURE TYPE: NM Stress: 16mCi [id number] was administered IV for Rest Imaging at 635 by wm. 52.3 mCi [id number] was administered IV for Stress Imaging at 755 by wm. ADMINISTRATION TIME: . PATIENT DISCHARGED TO: Ambulatory patient, left IN department area. Is this a therapy: No A Diagnostic radioactive procedure has taken place, with no further precautions necessary other than routine body substance precautions. More information regarding radiation safety can be found using this link: [email or web address] [email or web address] SIGNATURE: RANDALL Gallegos) PATIENT NAME: Dawna Tipton DATE: April 04, 2025 TIME: 8:01 AM PAGER/CONTACT #: documented in this encounter [facility] 04-04-2025 Note HNO ID: [id number] Author: GARO PIZARRO RT(R) Service: Nuclear Radiology Author Type: Technologist Type: Progress Notes Filed: 04/04/2025 08:02 Note Text: RADIOLOGY SERVICE PROGRESS NOTE SERVICE DATE: 04/04/2025 SERVICE TIME: 8:01 AM PATIENT IDENTITY VERIFICATION COMPLETED USING TWO (2) STANDARD IDENTIFIERS: Name and Date of confirmed by patient verbally and Name and Date of confirmed by identification band FALL SCREENING: Has the patient had 2 falls in the last year or 1 fall with injury or currently using an Ambulatory Assistive Device (Walker, Cane, Wheelchair, Crutches, etc.)? No PATIENT GENDER DATA: .male ALLERGIES: Reviewed and unchanged MEDICATIONS REVIEWED: No PATIENT RELEVANT IMPLANT DATA REVIEWED: Not Applicable PATIENT PRESENTS WITH AN IMPLANTABLE OR ATTACHED HOSPITAL LIAISON: No CREATININE: Creatinine Date Value Ref Range Status 06/13/2024 1.16 0.73 - 1.22 mg/dL Final 06/24/2017 0.76 0.70 - 1.40 mg/dL Final Estimated Glomerular Filtration Rate Date Value Ref Range Status 06/13/2024 73 >=60 mL/min/1.73m? Final Comment: Estimated Glomerular Filtration Rate (eGFR) is calculated using the 2020 CKD-EPI creatinine equation. This equation utilizes serum creatinine, sex, and age as parameters. The creatinine assay has traceable calibration to isotope dilution-mass spectrometry. Refer to KDIGO guidelines for clinical interpretation. In patients with unstable renal function, e.g. those with acute kidney injury, the eGFR may not accurately reflect actual GFR. eGFR- Date Value Ref Range Status 06/24/2017 >60 Final P.O.C.T. RESULTS: N/A April 04, [address] PERFORMED: No IV SITE: Ambulatory: A peripheral IV was started in the Right antecubital site with a Angio cath: 22 gauge. POST EXAM PIV STATUS: Discontinued PROCEDURE TYPE: NM Stress: 16mCi [id number] was administered IV for Rest Imaging at 635 by wm. 52.3 mCi [id number] was administered IV for Stress Imaging at 755 by wm. ADMINISTRATION TIME: . PATIENT DISCHARGED TO: Ambulatory patient, left [place] department area. Is this a therapy: No A Diagnostic radioactive procedure has taken place, with no further precautions necessary other than routine body substance precautions. More information regarding radiation safety can be found using this link: [email or web address] 20Diagnostic%20Nuclear%20Medicine%20Procedures.p df SIGNATURE: RT El(R) PATIENT NAME: Dawna Tipton DATE: April 04, 2025 TIME: 8:01 AM PAGER/CONTACT #: [facility] 03-03-2025 Note HNO ID: [id number] Author: MARIELENA RIVERA MD Service: ? Author Type: Physician Type: Progress Notes Filed: 03/03/2025 11:20 Note Text: Referring Provider: No ref. provider found Date: March 03, 2025 Chief Complaint: Established Patient Follow-Up (6 weeks calcium score and echo) HISTORY OF PRESENT ILLNESS: Dawna Tipton presents for Established Patient Follow-Up (6 weeks calcium score and echo). 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 With the only complaint that of stable/longstanding mild dyspnea on exertion, chart review reveals the fact that atrial fibrillation was first documented in June 2024. Asymptomatic, he was placed on metoprolol succinate to 100 mg and Xarelto. No attempt was made to restore sinus rhythm. He returns today with again no cardiac complaints. He continues to smoke. ALLERGIES Allergen Reactions Bactrim [Sulfametho* Other: See Comments Get's blisters on his penis Codeine Rash Keflex [Cephalexin] Rash PAST MEDICAL HISTORY: PAST MEDICAL HISTORY Diagnosis Date A-fib (HCC) Bautista's esophagus CHF (congestive heart failure) (HCC) COPD (chronic obstructive pulmonary disease) (HCC) Dyslipidemia Essential hypertension ETOH abuse GERD (gastroesophageal reflux disease) H/O pulmonary function tests 04/17/2023 spirometry normal, mild air trapping H/O pulmonary function tests 01/15/2020 mild obstruction, significant improvement post bronchodilator, mild air trapping present, normal diffusion History of cardiac monitoring 10/20/2022 PAF, no other arrhythmias. Highest HR 151 bpm. lowest HR 67 bpm. Average HR 84 bpm History of echocardiogram 04/02/2024 EF 55-60%. Trace MR and TR History of echocardiogram 11/07/2022 EF 53%. Mildly dilated left atrium. Preserved systolic function of left ventricle. Right ventricular systolic function preserved. Mild MR and TR. RVSP 30-35 mmHg History of echocardiogram 02/14/2025 EF 50%. Left ventricular systolic function is mildly decreased. Right ventricle is mildly dilated. Right atrial cavity is dilated. Mild MR, TR. Trace AR, IA. No evidence of intracardiac shunting as detected by Doppler. History of stress test 11/07/2022 No EKG evidence of ischemia or infarction History of stress test 10/26/2022 EF 61%. Normal perfusion without reversibility. Hypothyroidism Mixed hyperlipidemia CHUYITA (obstructive sleep apnea) Sleep apnea Snoring SOB (shortness of breath) Tobacco abuse Urinary retention PAST SURGICAL HISTORY Procedure Laterality Date CYSTOSCOPY CYSTOSCOPY N/A 06/21/2024 Cysto with dilation of urethral stricture- Dr Shah EAR TUBES HX Bilateral 2023 Dr Cline KNEE SURGERY HX 2012 FAMILY HISTORY Problem Relation Age of Onset Thyroid Mother Diabetes Father Thyroid Father Thyroid Sister SOCIAL HISTORY: Tobacco Use: Types: Cigarettes Alcohol Use: Yes (5-6 beers/day) Drug Use: Never Employer And Job Title: None on file Years Of Education Completed: Not specified Marital Status: MEDICATIONS: Current Outpatient Medications Medication Sig furosemide (LASIX) 20 mg tablet Take 20 mg by mouth once daily. metoprolol succinate ER (TOPROL XL) 100 mg Take 1 tablet by mouth once daily. levothyroxine (SYNTHROID) 200 mcg tablet Take 200 mcg by mouth every morning. Take on an empty stomach. omeprazole (PRILOSEC) 40 mg capsule take 1 capsule by mouth once daily 30 MINUTES before MORNING MEAL atorvastatin (LIPITOR) 20 mg tablet Take 20 mg by mouth daily at bedtime. lisinopril (ZESTRIL) 40 mg tablet Take 1 tablet by mouth every afternoon. XARELTO 20 mg tablet take 1 tablet by mouth once daily with evening meal CPAP STIOLTO RESPIMAT 2.5-2.5 mcg/actuation inhale 2 puffs by mouth and INTO THE LUNGS once daily No current facility-administered medications for this visit. I have personally reviewed the patients past medical history including social, family, surgical, diagnostics, and medications. REVIEW OF SYSTEMS: Review of Systems Constitutional: Negative for chills and fatigue. Respiratory: Negative for chest tightness and shortness of breath. Cardiovascular: Negative for chest pain, palpitations and leg swelling. Neurological: Negative for dizziness, syncope, weakness and light-headedness. Hematological: Bruises/bleeds easily. Psychiatric/Behavioral: Negative for confusion and hallucinations. PHYSICAL EXAMINATION: BP 128/76 (BP Site: Left Arm, BP Position: Sitting, BP Cuff Size: Large Adult) Pulse 98 Ht 180.3 cm (5' 11) Wt (!) 142.9 kg (315 lb 0.6 oz) BMI 43.94 kg/m? Patient is in no distress. Last 3 Encounter BP Readings: Date: BP: 01/20/2025 128/72 10/28/2024 128/88 07/29/2024 128/83 Last 3 Encounter Pulse Readings: Date: Pul (more content not included)... [facility] 01-20-2025 Note HNO ID: [id number] Author: MARIELENA RIVERA MD Service: ? Author Type: Physician Type: Progress Notes Filed: 01/20/2025 09:53 Note Text: Referring Provider: No ref. provider found Date: January 20, 2025 Chief Complaint: CARD New Patient Consult (New patient - previous AFIB w/ normal ventricular rate ) HISTORY OF PRESENT ILLNESS: Dawna Cevallos Tamimary presents for CARD New Patient Consult (New patient - previous AFIB w/ normal ventricular rate ). 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 Previously assessed in October 2022 with a normal nuclear stress test and subsequently in November 2022 with an echocardiogram reporting mild left atrial enlargement. First EKG demonstrating atrial fibrillation seen in June 2024. Placed on Xarelto and metoprolol succinate 100 mg, there is no documentation of effort to restore sinus rhythm. On return today his only complaint is that of dyspnea on exertion [he is sedentary] as he denies orthopnea, PND, symptoms of dysrhythmia, and any discomfort 1 might interpreted as angina. He occasionally feels palpitations when lying in bed but is otherwise unaware of his abnormal rhythm. He is compliant with his Xarelto and metoprolol succinate. ALLERGIES Allergen Reactions Bactrim [Sulfametho* Other: See Comments Get's blisters on his penis Codeine Rash Keflex [Cephalexin] Rash PAST MEDICAL HISTORY: PAST MEDICAL HISTORY Diagnosis Date A-fib ([facility]) Bautista's esophagus CHF (congestive heart failure) ([facility]) COPD (chronic obstructive pulmonary disease) ([facility]) Dyslipidemia Essential hypertension ETOH abuse GERD (gastroesophageal reflux disease) H/O pulmonary function tests 04/17/2023 spirometry normal, mild air trapping H/O pulmonary function tests 01/15/2020 mild obstruction, significant improvement post bronchodilator, mild air trapping present, normal diffusion History of cardiac monitoring 10/20/2022 PAF, no other arrhythmias. Highest HR 151 bpm. lowest HR 67 bpm. Average HR 84 bpm History of echocardiogram 04/02/2024 EF 55-60%. Trace MR and TR History of echocardiogram 11/07/2022 EF 53%. Mildly dilated left atrium. Preserved systolic function of left ventricle. Right ventricular systolic function preserved. Mild MR and TR. RVSP 30-35 mmHg History of stress test 11/08/2022 No EKG evidence of ischemia or infarction History of stress test 10/26/2022 EF 61%. Normal perfusion without reversibility. Hypothyroidism Mixed hyperlipidemia CHUYITA (obstructive sleep apnea) Sleep apnea Snoring SOB (shortness of breath) Tobacco abuse Urinary retention PAST SURGICAL HISTORY Procedure Laterality Date CYSTOSCOPY CYSTOSCOPY N/A 06/21/2024 Cysto with dilation of urethral stricture- Dr Shah EAR TUBES HX Bilateral 2023 Dr Cline KNEE SURGERY HX 2012 FAMILY HISTORY Problem Relation Age of Onset Thyroid Mother Diabetes Father Thyroid Father Thyroid Sister SOCIAL HISTORY: Tobacco Use: Types: Cigarettes Alcohol Use: Yes (5-6 beers/day) Drug Use: Never Employer And Job Title: None on file Years Of Education Completed: Not specified Marital Status: MEDICATIONS: Current Outpatient Medications Medication Sig furosemide (LASIX) 20 mg tablet Take 20 mg by mouth once daily. metoprolol succinate ER (TOPROL XL) 100 mg Take 1 tablet by mouth once daily. levothyroxine (SYNTHROID) 200 mcg tablet Take 200 mcg by mouth every morning. Take on an empty stomach. omeprazole (PRILOSEC) 40 mg capsule take 1 capsule by mouth once daily 30 MINUTES before MORNING MEAL atorvastatin (LIPITOR) 20 mg tablet Take 20 mg by mouth daily at bedtime. lisinopril (ZESTRIL) 40 mg tablet Take 1 tablet by mouth every afternoon. XARELTO 20 mg tablet take 1 tablet by mouth once daily with evening meal CPAP STIOLTO RESPIMAT 2.5-2.5 mcg/actuation inhale 2 puffs by mouth and INTO THE LUNGS once daily No current facility-administered medications for this visit. I have personally reviewed the patients past medical history including social, family, surgical, diagnostics, and medications. REVIEW OF SYSTEMS: Review of Systems Constitutional: Negative for chills and fatigue. Respiratory: Negative for chest tightness and shortness of breath. Cardiovascular: Positive for leg swelling. Negative for chest pain and palpitations. Neurological: Negative for dizziness, syncope, weakness and light-headedness. Hematological: Bruises/bleeds easily. Psychiatric/Behavioral: Negative for confusion and hallucinations. PHYSICAL EXAMINATION: BP 128/72 (BP Site: Left Arm, BP Position: Sitting) Pulse 93 Ht 180.3 cm (5' 11) Wt (!) 143.1 kg (315 lb 7.7 oz) SpO2 98% BMI 44.00 kg/m? obese middle-aged gentleman in no distress. EOMs fu (more content not included)... [facility] 01-20-[facility] History of Present illness Narrative Formatting of this note is different fro m the original. Referring Provider: No ref. provider found Date: January 20, 2025 Chief Complaint: CARD New Patient Consult (New patient - previous AFIB w/ normal ventricular rate ) HISTORY OF PRESENT ILLNESS: Dawna Ban Tipton presents for CARD New Patient Consult (New patient - previous AFIB w/ normal ventricular rate ). 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 Previously assessed in October 2022 with a normal nuclear stress test and subsequently in November 2022 with an echocardiogram reporting mild left atrial enlargement. First EKG demonstrating atrial fibrillation seen in June 2024. Placed on Xarelto and metoprolol succinate 100 mg, there is no documentation of effort to restore sinus rhythm. On return today his only complaint is that of dyspnea on exertion [he is sedentary] as he denies orthopnea, PND, symptoms of dysrhythmia, and any discomfort 1 might interpreted as angina. He occasionally feels palpitations when lying in bed but is otherwise unaware of his abnormal rhythm. He is compliant with his Xarelto and metoprolol succinate. ALLERGIES Allergen Reactions Bactrim [Sulfametho* Other: See Comments Get's blisters on his penis Codeine Rash Keflex [Cephalexin] Rash PAST MEDICAL HISTORY: PAST MEDICAL HISTORY Diagnosis Date A-fib ([facility]) Bautista's esophagus CHF (congestive heart failure) ([facility]) COPD (chronic obstructive pulmonary disease) ([facility]) Dyslipidemia Essential hypertension ETOH abuse GERD (gastroesophageal reflux disease) H/O pulmonary function tests 04/17/2023 spirometry normal, mild air trapping H/O pulmonary function tests 01/15/2020 mild obstruction, significant improvement post bronchodilator, mild air trapping present, normal diffusion History of cardiac monitoring 10/20/2022 PAF, no other arrhythmias. Highest HR 151 bpm. lowest HR 67 bpm. Average HR 84 bpm History of echocardiogram 04/02/2024 EF 55-60%. Trace MR and TR History of echocardiogram 11/07/2022 EF 53%. Mildly dilated left atrium. Preserved systolic function of left ventricle. Right ventricular systolic function preserved. Mild MR and TR. RVSP 30-35 mmHg History of stress test 11/08/2022 No EKG evidence of ischemia or infarction History of stress test 10/26/2022 EF 61%. Normal perfusion without reversibility. Hypothyroidism Mixed hyperlipidemia CHUYITA (obstructive sleep apnea) Sleep apnea Snoring SOB (shortness of breath) Tobacco abuse Urinary retention PAST SURGICAL HISTORY Procedure Laterality Date CYSTOSCOPY CYSTOSCOPY N/A 06/21/2024 Cysto with dilation of urethral stricture- Dr Shah EAR TUBES HX Bilateral 2023 Dr Cline KNEE SURGERY HX 2012 FAMILY HISTORY Problem Relation Age of Onset Thyroid Mother Diabetes Father Thyroid Father Thyroid Sister SOCIAL HISTORY: Tobacco Use: Types: Cigarettes Alcohol Use: Yes (5-6 beers/day) Drug Use: Never Employer And Job Title: None on file Years Of Education Completed: Not specified Marital Status: MEDICATIONS: Current Outpatient Medications Medication Sig furosemide (LASIX) 20 mg tablet Take 20 mg by mouth once daily. metoprolol succinate ER (TOPROL XL) 100 mg Take 1 tablet by mouth once daily. levothyroxine (SYNTHROID) 200 mcg tablet Take 200 mcg by mouth every morning. Take on an empty stomach. omeprazole (PRILOSEC) 40 mg capsule take 1 capsule by mouth once daily 30 MINUTES before MORNING MEAL atorvastatin (LIPITOR) 20 mg tablet Take 20 mg by mouth daily at bedtime. lisinopril (ZESTRIL) 40 mg tablet Take 1 tablet by mouth every afternoon. XARELTO 20 mg tablet take 1 tablet by mouth once daily with evening meal CPAP STIOLTO RESPIMAT 2.5-2.5 mcg/actuation inhale 2 puffs by mouth and INTO THE LUNGS once daily No current facility-administered medications for this visit. I have personally reviewed the patients past medical history including social, family, surgical, diagnostics, and medications. REVIEW OF SYSTEMS: Review of Systems Constitutional: Negative for chills and fatigue. Respiratory: Negative for chest tightness and shortness of breath. Cardiovascular: Positive for leg swelling. Negative for chest pain and palpitations. Neurological: Negative for dizziness, syncope, weakness and light-headedness. Hematological: Bruises/bleeds easily. Psychiatric/Behavioral: Negative for confusion and hallucinations. PHYSICAL EXAMINATION: BP 128/72 (BP Site: Left Arm, BP Position: Sitting) Pulse 93 Ht 180.3 cm (5' 11) Wt (!) 143.1 kg (315 lb 7.7 oz) SpO2 98% BMI 44.00 kg/m obese middle-aged gentleman in no distress. EOMs full, sclerae and conjunctiva normal. Thyroid normal palpation. Carotid upstrokes normal without bruit. Chest exam reveals clear prolongation of expiratory phase without wheezing. PMI not felt. S1-S2 normal without murmurs or gallops. Marked abdominal obesity without palpable masses or audible bruits. Pedal pulses intact with 1+ bilateral lower extremity edema. Alert and oriented x 3 and answers questions appropriately. Last 3 Encounter BP Readings: Date: BP: 10/28/2024 128/88 07/29/2024 128/83 06/24/2024 149/98 Last 3 Encounter Pulse Readings: Date: Pulse: 10/28/2024 97 07/29/2024 114 06/24/2024 94 Last 3 Encounter Wt Readings: Date: Wt: 06/24/2024 128.8 kg (284 lb) 06/13/2024 129.2 kg (284 lb 13.4 oz) 12/01/2023 145.8 kg (321 lb 6.4 oz) LABS: Glucose (mg/dL) Date Value 06/13/2024 99 06/24/2017 95 Potassium (mmol/L) Date Value 06/13/2024 3.6 06/24/2017 4.3 Sodium (mmol/L) Date Value 06/13/2024 141 06/24/2017 142 Chloride (mmol/L) Date Value 06/13/2024 105 06/24/2017 105 CO2 (mmol/L) Date Value 06/13/2024 25 06/24/2017 25 Creatinine (mg/dL) Date Value 06/13/2024 1.16 06/24/2017 0.76 BUN (mg/dL) Date Value 06/13/2024 13 06/24/2017 9 Anion Gap (mmol/L) Date Value 06/13/2024 11 06/24/2017 12 Calcium (mg/dL) Date Value 06/24/2017 9.0 Calcium, Total (mg/dL) Date Value 06/13/2024 8.9 Protein, Total (g/dL) Date Value 06/24/2017 7.2 Albumin (g/dL) Date Value 06/24/2017 4.1 Bilirubin, Total (mg/dL) Date Value 06/24/2017 0.4 Alkaline Phosphatase (U/L) Date Value 06/24/2017 56 AST (U/L) Date Value 06/24/2017 20 ALT (U/L) Date Value 06/24/2017 22 Hemoglobin (g/dL) Date Value 06/13/2024 13.6 06/24/2017 14.4 Hematocrit (%) Date Value 06/13/2024 40.3 06/24/2017 43.6 WBC (k/uL) Date Value 06/13/2024 6.95 06/24/2017 8.48 No results found for: CHOL, HDL, LDL, TG EKG: Atrial fibrillation with a ventricular response rate of 86 bpm. ASSESSMENT/PLAN: 1. Longstanding persistent atrial fibrillation (HCC) - ICD9: 427.31, ICD10: I48.11 (primary diagnosis). Persistent atrial fibrillation without apparent effort to restore sinus mechanism. Echocardiogram from 2022 revealed mild left atrial enlargement without apparent evidence of other abnormality. Discussed with him some length the fact that usually at least a single effort is expanded to restore a normal rhythm. Will repeat an echocardiogram to exclude any significant interim change and dependent upon those results probably proceed to one attempt at cardioversion. 2. Dyspnea, unspecified type - ICD9: 786.09, ICD10: R06.00. Clearly has some degree of chronic obstructive pulmonary disease with mild prolongation of his expiratory phase [scheduled to see pulmonary medicine]. He does however have multiple risk factors for coronary disease including sedentary lifestyle, ongoing tobacco abuse, hypertension, and dyslipidemia. Nuclear stress test was normal in October 2022. Will screen him with calcium scoring to segregate his present risk. - ECHO - PERFLUTREN LIPID MICROSPHERES 1.1 MG/ML INJECTION IN NS 10 ML - SODIUM CHLORIDE 0.9 % (FLUSH) INJECTION SYRINGE 3. Essential hypertension - ICD9: 401.9, ICD10: I10. Normotensive today. - ECG COMPLETE - ECHO 4. Dyslipidemia - ICD9: 272.4, ICD10: E78.5. Reportedly adequately controlled. 5. Tobacco abuse - ICD9: 305.1, ICD10: Z72.0. The hazards of this habit and the fact that he has COPD discussed at length. 6. Chronic obstructive pulmonary disease, unspecified COPD type (HCC) - ICD9: 496, ICD10: J44.9 Mairelena Rivera MD I, Dr. Marielena Rivera, have reviewed and agree with the information in the medical record. Marielena Rivera MD documented in this encounter [facility] 10-28-2024 Note HNO ID: [id number] Author: DAWNA SHAH MD Service: ? Author Type: Physician Type: Progress Notes Filed: 10/28/2024 09:18 Note Text: October 28, 2024 Reason for Appointment Patient presents with: Follow Up: 3 month f/u. Pt states he is doing really good. HPI Dawna Tipton is a 59 year old male who presents today for a follow-up appointment. Overall the patient is doing well. He is catheterizing once a week at this point. He said that he has no difficulty passing the catheter now. He really feels like he is doing very well with regard to urination. He said that he has a good, strong stream. Current Medications sildenafil (VIAGRA) 50 mg tablet Take 50 mg by mouth once daily as needed. furosemide (LASIX) 20 mg tablet Take 20 mg by mouth as needed. metoprolol succinate ER (TOPROL XL) 100 mg Take 1 tablet by mouth every afternoon. Takes in the evening. levothyroxine (SYNTHROID) 200 mcg tablet Take 200 mcg by mouth every morning. Take on an empty stomach. omeprazole (PRILOSEC) 40 mg capsule take 1 capsule by mouth once daily 30 MINUTES before MORNING MEAL atorvastatin (LIPITOR) 20 mg tablet Take 20 mg by mouth daily at bedtime. lisinopril (ZESTRIL) 40 mg tablet Take 1 tablet by mouth every afternoon. XARELTO 20 mg tablet take 1 tablet by mouth once daily with evening meal CPAP STIOLTO RESPIMAT 2.5-2.5 mcg/actuation inhale 2 puffs by mouth and INTO THE LUNGS once daily (Patient taking differently: inhale 2 puffs by mouth and INTO THE LUNGS once daily. Takes at HS) PAST MEDICAL HISTORY Diagnosis Date A-fib (HCC) Bautista's esophagus COPD (chronic obstructive pulmonary disease) (HCC) Dyslipidemia Essential hypertension ETOH abuse Hypothyroidism Mixed hyperlipidemia CHUYITA (obstructive sleep apnea) Sleep apnea Snoring SOB (shortness of breath) Tobacco abuse PAST SURGICAL HISTORY Procedure Laterality Date CYSTOSCOPY CYSTOSCOPY N/A 06/21/2024 Cysto with dilation of urethral stricture KNEE SURGERY HX Bilateral FAMILY HISTORY Problem Relation Age of Onset Thyroid Mother Diabetes Father Thyroid Father Social History Tobacco Use Smoking status: Every Day Current packs/day: 1.50 Types: Cigarettes Smokeless tobacco: Never Vaping Use Vaping status: Never Used Substance Use Topics Alcohol use: Yes Comment: 5-6 beers/day Drug use: Never ALLERGIES Allergen Reactions Bactrim [Sulfametho* Other: See Comments Get's blisters on his penis Codeine Rash Keflex [Cephalexin] Other: See Comments Objective BP 128/88 Pulse 97 SpO2 99% Physical Exam Constitutional: Appearance: Normal appearance. Pulmonary: Effort: Pulmonary effort is normal. Genitourinary: Comments: Perimeatal lichen sclerosis noted. The meatus seems to be adequately patent at this point. Neurological: Mental Status: He is alert and oriented to person, place, and time. ASSESSMENT/PLAN: 1. 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 I explained to him that I very strongly encouraged him to continue to catheterize at least once a week to maintain patency of the urethra. I am very concerned about recurrence given the extensiveness of his urethral stricture. The patient expressed clear understanding and reiterated that he is having no problems passing the catheter at all. Therefore, we will continue with the once a week regimen. We will see him back in June when he will be due for a PSA. As long as everything is going well we should be able to see him annually thereafter. 2. Benign prostatic hyperplasia with weak urinary stream - ICD9: 600.01, 788.62, ICD10: N40.1, R39.12 The patient was having obstructive symptoms which were mostly related to the urethral stricture. We will however check a PSA annually. - PROSTATE-SPECIFIC ANTIGEN DIAGNOSTIC Dawna Shah MD Follow Up Return in about 8 months (around 06/28/2025) for PSA prior. [facility] 10-28-2024 History of Present illness Narrative Formatting of this note is different fro m the original. October 28, 2024 Reason for Appointment Patient presents with: Follow Up: 3 month f/u. Pt states he is doing really good. HPI Dawna Cevallos Salalbino is a 59 year old male who presents today for a follow-up appointment. Overall the patient is doing well. He is catheterizing once a week at this point. He said that he has no difficulty passing the catheter now. He really feels like he is doing very well with regard to urination. He said that he has a good, strong stream. Current Medications sildenafil (VIAGRA) 50 mg tablet Take 50 mg by mouth once daily as needed. furosemide (LASIX) 20 mg tablet Take 20 mg by mouth as needed. metoprolol succinate ER (TOPROL XL) 100 mg Take 1 tablet by mouth every afternoon. Takes in the evening. levothyroxine (SYNTHROID) 200 mcg tablet Take 200 mcg by mouth every morning. Take on an empty stomach. omeprazole (PRILOSEC) 40 mg capsule take 1 capsule by mouth once daily 30 MINUTES before MORNING MEAL atorvastatin (LIPITOR) 20 mg tablet Take 20 mg by mouth daily at bedtime. lisinopril (ZESTRIL) 40 mg tablet Take 1 tablet by mouth every afternoon. XARELTO 20 mg tablet take 1 tablet by mouth once daily with evening meal CPAP STIOLTO RESPIMAT 2.5-2.5 mcg/actuation inhale 2 puffs by mouth and INTO THE LUNGS once daily (Patient taking differently: inhale 2 puffs by mouth and INTO THE LUNGS once daily. Takes at HS) PAST MEDICAL HISTORY Diagnosis Date A-fib (HCC) Bautista's esophagus COPD (chronic obstructive pulmonary disease) (HCC) Dyslipidemia Essential hypertension ETOH abuse Hypothyroidism Mixed hyperlipidemia CHUYITA (obstructive sleep apnea) Sleep apnea Snoring SOB (shortness of breath) Tobacco abuse PAST SURGICAL HISTORY Procedure Laterality Date CYSTOSCOPY CYSTOSCOPY N/A 06/21/2024 Cysto with dilation of urethral stricture KNEE SURGERY HX Bilateral FAMILY HISTORY Problem Relation Age of Onset Thyroid Mother Diabetes Father Thyroid Father Social History Tobacco Use Smoking status: Every Day Current packs/day: 1.50 Types: Cigarettes Smokeless tobacco: Never Vaping Use Vaping status: Never Used Substance Use Topics Alcohol use: Yes Comment: 5-6 beers/day Drug use: Never ALLERGIES Allergen Reactions Bactrim [Sulfametho* Other: See Comments Get's blisters on his penis Codeine Rash Keflex [Cephalexin] Other: See Comments Objective BP 128/88 Pulse 97 SpO2 99% Physical Exam Constitutional: Appearance: Normal appearance. Pulmonary: Effort: Pulmonary effort is normal. Genitourinary: Comments: Perimeatal lichen sclerosis noted. The meatus seems to be adequately patent at this point. Neurological: Mental Status: He is alert and oriented to person, place, and time. ASSESSMENT/PLAN: 1. 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 I explained to him that I very strongly encouraged him to continue to catheterize at least once a week to maintain patency of the urethra. I am very concerned about recurrence given the extensiveness of his urethral stricture. The patient expressed clear understanding and reiterated that he is having no problems passing the catheter at all. Therefore, we will continue with the once a week regimen. We will see him back in June when he will be due for a PSA. As long as everything is going well we should be able to see him annually thereafter. 2. Benign prostatic hyperplasia with weak urinary stream - ICD9: 600.01, 788.62, ICD10: N40.1, R39.12 The patient was having obstructive symptoms which were mostly related to the urethral stricture. We will however check a PSA annually. - PROSTATE-SPECIFIC ANTIGEN DIAGNOSTIC Dawna Shah MD Follow Up Return in about 8 months (around 06/28/2025) for PSA prior. documented in this encounter [facility] 07-29-2024 Note HNO ID: [id number] Author: DAWNA SHAH MD Service: ? Author Type: Physician Type: Progress Notes Filed: 07/29/2024 12:39 Note Text: July 29, 2024 Reason for Appointment Patient presents with: Follow Up: 1 month f/u. Pt stated everything is going great, and that is the best thing he has done. HPI Dawna Tipton is a 59 year old male who presents today for a follow-up appointment. The patient is doing very well. He said that he urinates essentially normally now. He is not really having any difficulty catheterizing and is doing it twice a day at this time. He denies any gross hematuria or urinary infections. Overall he is doing much better and is very pleased with the improvement. Current Medications sildenafil (VIAGRA) 50 mg tablet Take 50 mg by mouth once daily as needed. furosemide (LASIX) 20 mg tablet Take 20 mg by mouth as needed. metoprolol succinate ER (TOPROL XL) 100 mg Take 1 tablet by mouth every afternoon. Takes in the evening. levothyroxine (SYNTHROID) 200 mcg tablet Take 200 mcg by mouth every morning. Take on an empty stomach. omeprazole (PRILOSEC) 40 mg capsule take 1 capsule by mouth once daily 30 MINUTES before MORNING MEAL atorvastatin (LIPITOR) 20 mg tablet Take 20 mg by mouth daily at bedtime. lisinopril (ZESTRIL) 40 mg tablet Take 1 tablet by mouth every afternoon. XARELTO 20 mg tablet take 1 tablet by mouth once daily with evening meal CPAP STIOLTO RESPIMAT 2.5-2.5 mcg/actuation inhale 2 puffs by mouth and INTO THE LUNGS once daily (Patient taking differently: inhale 2 puffs by mouth and INTO THE LUNGS once daily. Takes at HS) PAST MEDICAL HISTORY Diagnosis Date A-fib (HCC) Bautista's esophagus COPD (chronic obstructive pulmonary disease) (HCC) Dyslipidemia Essential hypertension ETOH abuse Hypothyroidism Mixed hyperlipidemia CHUYITA (obstructive sleep apnea) Sleep apnea Snoring SOB (shortness of breath) Tobacco abuse PAST SURGICAL HISTORY Procedure Laterality Date CYSTOSCOPY CYSTOSCOPY N/A 06/21/2024 Cysto with dilation of urethral stricture KNEE SURGERY HX Bilateral FAMILY HISTORY Problem Relation Age of Onset Thyroid Mother Diabetes Father Thyroid Father Social History Tobacco Use Smoking status: Every Day Current packs/day: 1.50 Types: Cigarettes Smokeless tobacco: Never Vaping Use Vaping status: Never Used Substance Use Topics Alcohol use: Yes Comment: 5-6 beers/day Drug use: Never ALLERGIES Allergen Reactions Bactrim [Sulfametho* Other: See Comments Get's blisters on his penis Codeine Rash Keflex [Cephalexin] Other: See Comments Objective BP 128/83 Pulse 114 SpO2 99% Physical Exam Constitutional: Appearance: Normal appearance. He is obese. Pulmonary: Breath sounds: Normal breath sounds. Neurological: Mental Status: He is alert and oriented to person, place, and time. ASSESSMENT/PLAN: 1. Retention of urine - ICD9: 788.20, ICD10: R33.9 (primary diagnosis) The patient is doing very well with intermittent catheterization. I recommended that he reduce the frequency down to just 1 time per day. We will see him back in 3 months to assess his progress. He does understand that if he has difficulty passing the catheter he should go back to twice a day. 2. 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 - ICD9: 598.8, ICD10: N35.816 See above Dawna Shah MD Follow Up Return in about 3 months (around 10/28/2024). [facility] 07-29-2024 History of Present illness Narrative Formatting of this note is different fro m the original. July 29, 2024 Reason for Appointment Patient presents with: Follow Up: 1 month f/u. Pt stated everything is going great, and that is the best thing he has done. HPI Dawna Tipton is a 59 year old male who presents today for a follow-up appointment. The patient is doing very well. He said that he urinates essentially normally now. He is not really having any difficulty catheterizing and is doing it twice a day at this time. He denies any gross hematuria or urinary infections. Overall he is doing much better and is very pleased with the improvement. Current Medications sildenafil (VIAGRA) 50 mg tablet Take 50 mg by mouth once daily as needed. furosemide (LASIX) 20 mg tablet Take 20 mg by mouth as needed. metoprolol succinate ER (TOPROL XL) 100 mg Take 1 tablet by mouth every afternoon. Takes in the evening. levothyroxine (SYNTHROID) 200 mcg tablet Take 200 mcg by mouth every morning. Take on an empty stomach. omeprazole (PRILOSEC) 40 mg capsule take 1 capsule by mouth once daily 30 MINUTES before MORNING MEAL atorvastatin (LIPITOR) 20 mg tablet Take 20 mg by mouth daily at bedtime. lisinopril (ZESTRIL) 40 mg tablet Take 1 tablet by mouth every afternoon. XARELTO 20 mg tablet take 1 tablet by mouth once daily with evening meal CPAP STIOLTO RESPIMAT 2.5-2.5 mcg/actuation inhale 2 puffs by mouth and INTO THE LUNGS once daily (Patient taking differently: inhale 2 puffs by mouth and INTO THE LUNGS once daily. Takes at HS) PAST MEDICAL HISTORY Diagnosis Date A-fib (HCC) Bautista's esophagus COPD (chronic obstructive pulmonary disease) (HCC) Dyslipidemia Essential hypertension ETOH abuse Hypothyroidism Mixed hyperlipidemia CHUYITA (obstructive sleep apnea) Sleep apnea Snoring SOB (shortness of breath) Tobacco abuse PAST SURGICAL HISTORY Procedure Laterality Date CYSTOSCOPY CYSTOSCOPY N/A 06/21/2024 Cysto with dilation of urethral stricture KNEE SURGERY HX Bilateral FAMILY HISTORY Problem Relation Age of Onset Thyroid Mother Diabetes Father Thyroid Father Social History Tobacco Use Smoking status: Every Day Current packs/day: 1.50 Types: Cigarettes Smokeless tobacco: Never Vaping Use Vaping status: Never Used Substance Use Topics Alcohol use: Yes Comment: 5-6 beers/day Drug use: Never ALLERGIES Allergen Reactions Bactrim [Sulfametho* Other: See Comments Get's blisters on his penis Codeine Rash Keflex [Cephalexin] Other: See Comments Objective BP 128/83 Pulse 114 SpO2 99% Physical Exam Constitutional: Appearance: Normal appearance. He is obese. Pulmonary: Breath sounds: Normal breath sounds. Neurological: Mental Status: He is alert and oriented to person, place, and time. ASSESSMENT/PLAN: 1. Retention of urine - ICD9: 788.20, ICD10: R33.9 (primary diagnosis) The patient is doing very well with intermittent catheterization. I recommended that he reduce the frequency down to just 1 time per day. We will see him back in 3 months to assess his progress. He does understand that if he has difficulty passing the catheter he should go back to twice a day. 2. 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 - ICD9: 598.8, ICD10: N35.816 See above Dawna Shah MD Follow Up Return in about 3 months (around 10/28/2024). documented in this encounter [facility] 06-26-2024 Telephone encounter Note Formatting of this note might be differe nt from the original. Can you please place an addendum on his last progress note with the diagnosis of retention. His insurance will not pay for the catheters with the diagnosis of stricture. Thank you Lurdes Stroy [facility] 06-26-2024 Miscellaneous Notes Formatting of this note might be differe nt from the original. Can you please place an addendum on his last progress note with the diagnosis of retention. His insurance will not pay for the catheters with the diagnosis of stricture. Thank you Lurdes Story It appears the diagnosis provided was the same utilized for his surgical intervention. I cannot adjust this diagnosis. Does he have a order form that needs completed or are we e scribing the catheters? I could adjust diagnosis code for e scribed products. Dawna called the office and states with the diagnosis of stricture his insurance will not pay for the catheters. He states if the diagnosis of retention or incontinence they might pay. Thank you Lurdes Story documented in this encounter [facility] 06-25-2024 Telephone encounter Note Formatting of this note might be differe nt from the original. It appears the diagnosis provided was the same utilized for his surgical intervention. I cannot adjust this diagnosis. Does he have a order form that needs completed or are we e scribing the catheters? I could adjust diagnosis code for e scribed products. [facility] Work Phone: 06-25-2024 Telephone encounter Note Formatting of this note might be differe nt from the original. Dawna called the office and states with the diagnosis of stricture his insurance will not pay for the catheters. He states if the diagnosis of retention or incontinence they might pay. Thank you Lurdes Story [facility] 06-24-2024 Nurse Note Faxed Catheter order a ABC. [facility] 06-24-2024 Nurse Note Faxed Catheter order a ABC. documented in this encounter [facility] 06-24-2024 Note HNO ID: [id number] Author: DAWNA SHAH MD Service: ? Author Type: Physician Type: Progress Notes Filed: 06/24/2024 11:51 Note Text: Patient here to have his catheter removed and to learn intermittent catheterization. The patient underwent cystoscopy with dilation of the urethral stricture on Monday. He did have rodriguez urethral disease. The plan will be for him to catheterize daily for now. [facility] 06-24-2024 History of Present illness Narrative Formatting of this note might be differe nt from the original. Patient here to have his catheter removed and to learn intermittent catheterization. The patient underwent cystoscopy with dilation of the urethral stricture on Monday. He did have rodriguez urethral disease. The plan will be for him to catheterize daily for now. documented in this encounter [facility] 06-21-2024 Note HNO ID: [id number] Author: HORACE LY RT(R) Service: Radiology Author Type: Technologist Type: Progress Notes Filed: 06/21/2024 14:47 Note Text: Radiology Service Progress Note PATIENT NAME: Dawna Tipton DATE OF SERVICE: June 21, 2024 TIME: 2:47 PM PATIENT IDENTITY VERIFICATION COMPLETED USING TWO (2) IDENTIFIERS: Name and Date of obtained from a relative, guardian or prior caregiver.. FALL SCREENING: Has the patient had 2 falls in the last year or 1 fall with injury or currently using an Ambulatory Assistive Device (Walker, Cane, Wheelchair, Crutches, etc.)? Inpatient: Screened on floor PATIENT GENDER DATA: Male PATIENT RELEVANT IMPLANT DATA REVIEWED: Not Applicable PATIENT PRESENTS WITH AN IMPLANTABLE OR ATTACHED HOSPITAL LIAISON: No RADIOLOGY DEPARTMENT: Cysto in OR room 6 PERIPHERAL IV DATA: Not applicable SIGNED BY: RT Dong(R) June 21, 2024 2:47 PM [facility] 06-19-2024 Note HNO ID: [id number] Author: GITA BALDWIN APRN.CNP Service: Anesthesiology Author Type: Nurse Practitioner Type: Progress Notes Filed: 06/19/2024 15:19 Note Text: Summary: DOS meds PATIENT MEDICATION INSTRUCTIONS Please read below carefully for your personalized instructions. Medications: If you are on blood thinner or anticoagulants including aspirin, please confirm with your surgical team on when to stop these medications. Unless instructed differently by your surgical team, stay on all of your medications until your surgery. Pre-Surgery Med Instructions Medication Instructions sildenafil (VIAGRA) 50 mg tablet DO NOT TAKE MORNING OF SURGERY levothyroxine (SYNTHROID) 200 mcg tablet Take morning of surgery with a sip of water, no other fluids omeprazole (PRILOSEC) 40 mg capsule Take morning of surgery with a sip of water, no other fluids If you take any medications for erectile dysfunction-Cialis (Tadalafil), Levitra, Staxyn (Vardenafil) Viagra (Sildenenafil please do not take these for 48 hours before surgery. If you have any medication changes between receiving these instructions and your surgery date, please provide this updated information with the nurse who calls you the week day prior to your surgical procedure so we can update your list and provide you with updated instructions for the morning of your procedure. [facility] 06-13-2024 Note Addended by: LURDES STORY on: 06/13/2024 01:07 PM Modules accepted: Orders [facility] 06-13-2024 Miscellaneous Notes Addended by: LURDES STORY on: 06/13/2024 01:07 PM Modules accepted: Orders documented in this encounter [facility] 06-13-2024 Note HNO ID: [id number] Author: DAWNA SHAH MD Service: ? Author Type: Physician Type: Progress Notes Filed: 06/13/2024 12:42 Note Text: June 13, 2024 Reason for Appointment Patient presents with: Cystoscopy-1: Pt Denies urinary pain. Pt states urinary urgency and states he does not empty well HPI Dawna Tipton is a 59 year old male who presents today for cystoscopy. The patient had no new complaints but does still have lower urinary tract symptoms. Current Medications sildenafil (VIAGRA) 50 mg tablet Take 50 mg by mouth once daily as needed. furosemide (LASIX) 20 mg tablet Take 20 mg by mouth as needed. metoprolol succinate ER (TOPROL XL) 100 mg Take 1 tablet by mouth every afternoon. levothyroxine (SYNTHROID) 200 mcg tablet Take 200 mcg by mouth every morning. Take on an empty stomach. omeprazole (PRILOSEC) 40 mg capsule take 1 capsule by mouth once daily 30 MINUTES before MORNING MEAL atorvastatin (LIPITOR) 20 mg tablet Take 20 mg by mouth daily at bedtime. lisinopril (ZESTRIL) 40 mg tablet Take 1 tablet by mouth every afternoon. XARELTO 20 mg tablet take 1 tablet by mouth once daily with evening meal albuterol HFA (VENTOLIN HFA) 90 mcg/actuation inhaler Inhale 2 Puffs as instructed. STIOLTO RESPIMAT 2.5-2.5 mcg/actuation inhale 2 puffs by mouth and INTO THE LUNGS once daily CPAP PAST MEDICAL HISTORY No date: A-fib ([facility]) No date: Bautista's esophagus No date: COPD (chronic obstructive pulmonary disease) ([facility]) No date: Dyslipidemia No date: Essential hypertension No date: ETOH abuse No date: Hypothyroidism No date: Mixed hyperlipidemia No date: CHUYITA (obstructive sleep apnea) No date: Sleep apnea No date: Snoring No date: SOB (shortness of breath) No date: Tobacco abuse PAST SURGICAL HISTORY No date: KNEE SURGERY HX FAMILY HISTORY Problem Relation Age of Onset Thyroid Mother Diabetes Father Thyroid Father Social History Tobacco Use Smoking status: Every Day Packs/day: 1.5 Types: Cigarettes Smokeless tobacco: Never Vaping Use Vaping Use: Never used Substance Use Topics Alcohol use: Yes Drug use: Never ALLERGIES Allergen Reactions Bactrim [Sulfametho* Other: See Comments Get's blisters on his penis Codeine Rash Keflex [Cephalexin] Other: See Comments Objective BP 157/121 Physical Exam Constitutional: Appearance: Normal appearance. HENT: Head: Normocephalic. Nose: Nose normal. Cardiovascular: Rate and Rhythm: Normal rate and regular rhythm. Heart sounds: Normal heart sounds. No murmur heard. Pulmonary: Effort: Pulmonary effort is normal. Breath sounds: Normal breath sounds. No wheezing or rales. Abdominal: General: Bowel sounds are normal. Palpations: There is no hepatomegaly or splenomegaly. Tenderness: There is no abdominal tenderness. There is no guarding. Hernia: No hernia is present. Musculoskeletal: Cervical back: Neck supple. Lumbar back: Normal. Lymphadenopathy: Cervical: No cervical adenopathy. Skin: Findings: No rash. Nails: There is no clubbing. Neurological: Mental Status: He is oriented to person, place, and time. ASSESSMENT/PLAN: 1. 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 I recommended we make arrangements for him to go to the operating room for cystoscopy with dilation of the urethral stricture in the operating room. I went over this procedure in detail with him today. We discussed the potential risks, benefits, and alternatives. The patient expressed understanding of the procedure as well as its attendant risks and wants to proceed. We discussed the fact that he likely would have a catheter for a few days after the procedure and also will likely need to learn needle dilator however we will have to evaluate the extent of the stricture cystoscopically at the time of the procedure. - SODIUM CHLORIDE 0.9 % IRRIGATION SOLUTION - LIDOCAINE 2 % MUCOSAL JELLY IN APPLICATOR - URINE CULTURE 2. Preoperative testing - ICD9: V72.84, ICD10: Z01.818 - COMPLETE BLOOD COUNT - BASIC METABOLIC PANEL - ECG COMPLETE Dawna Shah MD Follow Up No follow-ups on file. [facility] 06-13-2024 History of Present illness Narrative Formatting of this note is different fro m the original. June 13, 2024 Reason for Appointment Patient presents with: Cystoscopy-1: Pt Denies urinary pain. Pt states urinary urgency and states he does not empty well HPI Dawna Cevallos Salalbino is a 59 year old male who presents today for cystoscopy. The patient had no new complaints but does still have lower urinary tract symptoms. Current Medications sildenafil (VIAGRA) 50 mg tablet Take 50 mg by mouth once daily as needed. furosemide (LASIX) 20 mg tablet Take 20 mg by mouth as needed. metoprolol succinate ER (TOPROL XL) 100 mg Take 1 tablet by mouth every afternoon. levothyroxine (SYNTHROID) 200 mcg tablet Take 200 mcg by mouth every morning. Take on an empty stomach. omeprazole (PRILOSEC) 40 mg capsule take 1 capsule by mouth once daily 30 MINUTES before MORNING MEAL atorvastatin (LIPITOR) 20 mg tablet Take 20 mg by mouth daily at bedtime. lisinopril (ZESTRIL) 40 mg tablet Take 1 tablet by mouth every afternoon. XARELTO 20 mg tablet take 1 tablet by mouth once daily with evening meal albuterol HFA (VENTOLIN HFA) 90 mcg/actuation inhaler Inhale 2 Puffs as instructed. STIOLTO RESPIMAT 2.5-2.5 mcg/actuation inhale 2 puffs by mouth and INTO THE LUNGS once daily CPAP PAST MEDICAL HISTORY No date: A-fib ([facility]) No date: Bautista's esophagus No date: COPD (chronic obstructive pulmonary disease) ([facility]) No date: Dyslipidemia No date: Essential hypertension No date: ETOH abuse No date: Hypothyroidism No date: Mixed hyperlipidemia No date: CHUYITA (obstructive sleep apnea) No date: Sleep apnea No date: Snoring No date: SOB (shortness of breath) No date: Tobacco abuse PAST SURGICAL HISTORY No date: KNEE SURGERY HX FAMILY HISTORY Problem Relation Age of Onset Thyroid Mother Diabetes Father Thyroid Father Social History Tobacco Use Smoking status: Every Day Packs/day: 1.5 Types: Cigarettes Smokeless tobacco: Never Vaping Use Vaping Use: Never used Substance Use Topics Alcohol use: Yes Drug use: Never ALLERGIES Allergen Reactions Bactrim [Sulfametho* Other: See Comments Get's blisters on his penis Codeine Rash Keflex [Cephalexin] Other: See Comments Objective BP 157/121 Physical Exam Constitutional: Appearance: Normal appearance. HENT: Head: Normocephalic. Nose: Nose normal. Cardiovascular: Rate and Rhythm: Normal rate and regular rhythm. Heart sounds: Normal heart sounds. No murmur heard. Pulmonary: Effort: Pulmonary effort is normal. Breath sounds: Normal breath sounds. No wheezing or rales. Abdominal: General: Bowel sounds are normal. Palpations: There is no hepatomegaly or splenomegaly. Tenderness: There is no abdominal tenderness. There is no guarding. Hernia: No hernia is present. Musculoskeletal: Cervical back: Neck supple. Lumbar back: Normal. Lymphadenopathy: Cervical: No cervical adenopathy. Skin: Findings: No rash. Nails: There is no clubbing. Neurological: Mental Status: He is oriented to person, place, and time. ASSESSMENT/PLAN: 1. 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 I recommended we make arrangements for him to go to the operating room for cystoscopy with dilation of the urethral stricture in the operating room. I went over this procedure in detail with him today. We discussed the potential risks, benefits, and alternatives. The patient expressed understanding of the procedure as well as its attendant risks and wants to proceed. We discussed the fact that he likely would have a catheter for a few days after the procedure and also will likely need to learn needle dilator however we will have to evaluate the extent of the stricture cystoscopically at the time of the procedure. - SODIUM CHLORIDE 0.9 % IRRIGATION SOLUTION - LIDOCAINE 2 % MUCOSAL JELLY IN APPLICATOR - URINE CULTURE 2. Preoperative testing - ICD9: V72.84, ICD10: Z01.818 - COMPLETE BLOOD COUNT - BASIC METABOLIC PANEL - ECG COMPLETE Dawna Shah MD Follow Up No follow-ups on file. documented in this encounter [facility] 06-13-2024 Note HNO ID: [id number] Author: DAWNA SHAH MD Service: ? Author Type: Physician Type: Procedures Filed: 06/13/2024 12:42 Note Text: June 13, 2024 Reason for Appointment Patient presents with: Cystoscopy-1: Pt Denies urinary pain. Pt states urinary urgency and states he does not empty well HPI Dawna Tipton is a 59 year old male who presents today for cystoscopy. Pre op dx: Urethral stricture Post op dx: Same Procedure: Attempted flexible cystoscopy Scription of procedure: The patient was taken to the procedure room and placed in the supine position on the cystoscopy table. He was prepped in the usual fashion. 2% Xylocaine jelly was instilled into the urethra in a retrograde fashion. I obtained the flexible cystoscope and attempted to advance this into the urethra however there was significant meatal stenosis. I then obtained a straight hemostat and attempted to gently dilate the meatus however the patient had quite a bit of discomfort and it was clear that this was not going to be possible without anesthesia. The attempt was aborted and the patient will be scheduled for dilation in the operating room. BP 172/101 Physical Exam No follow-ups on file. [employer]AL [employer] / SAFETY CHECKLIST Procedure to be Performed: Cystoscopy Sign In: A Moment of CARE was completed. Personnel directly involved with the procedure wore the appropriate PPE (Personal Protective Equipment). No special equipment needed. Patient/Surrogate Stated/Verified: PATIENT VERIFIED(optional for EMERGENT procedures): Patient name, Date of , Relevant allergies, and The intended procedure Time Out Communication: Intended patient and procedure match the source documents. Consent documented and matches the intended procedure. Relevant labs, photos, and/or imaging studies have been reviewed. No correct side/site applicable for marking and visibility. Medications required for procedure verified. No fire risk assessment and interventions applicable. No implant(s) inserted. Sign Out: SIGN OUT (optional for EMERGENT procedures): No specimen collected. All instruments, equipment, possible retained foreign bodies accounted for. Post-procedure follow-up management communicated and Plan of Care Visit completed when applicable. Mohini Altamirano RN [facility] 06-13-2024 Procedure note Formatting of this note might be differe nt from the original. June 13, 2024 Reason for Appointment Patient presents with: Cystoscopy-1: Pt Denies urinary pain. Pt states urinary urgency and states he does not empty well HPI Dawna Tipton is a 59 year old male who presents today for cystoscopy. Pre op dx: Urethral stricture Post op dx: Same Procedure: Attempted flexible cystoscopy Scription of procedure: The patient was taken to the procedure room and placed in the supine position on the cystoscopy table. He was prepped in the usual fashion. 2% Xylocaine jelly was instilled into the urethra in a retrograde fashion. I obtained the flexible cystoscope and attempted to advance this into the urethra however there was significant meatal stenosis. I then obtained a straight hemostat and attempted to gently dilate the meatus however the patient had quite a bit of discomfort and it was clear that this was not going to be possible without anesthesia. The attempt was aborted and the patient will be scheduled for dilation in the operating room. BP 172/101 Physical Exam No follow-ups on file. UNIVERSAL PROTOCOL / SAFETY CHECKLIST Procedure to be Performed: Cystoscopy Sign In: A Moment of CARE was completed. Personnel directly involved with the procedure wore the appropriate PPE (Personal Protective Equipment). No special equipment needed. Patient/Surrogate Stated/Verified: PATIENT VERIFIED(optional for EMERGENT procedures): Patient name, Date of , Relevant allergies, and The intended procedure Time Out Communication: Intended patient and procedure match the source documents. Consent documented and matches the intended procedure. Relevant labs, photos, and/or imaging studies have been reviewed. No correct side/site applicable for marking and visibility. Medications required for procedure verified. No fire risk assessment and interventions applicable. No implant(s) inserted. Sign Out: SIGN OUT (optional for EMERGENT procedures): No specimen collected. All instruments, equipment, possible retained foreign bodies accounted for. Post-procedure follow-up management communicated and Plan of Care Visit completed when applicable. Mohini Altamirano RN [facility] 06-13-2024 Procedure note Formatting of this note might be differe nt from the original. June 13, 2024 Reason for Appointment Patient presents with: Cystoscopy-1: Pt Denies urinary pain. Pt states urinary urgency and states he does not empty well HPI Dawna Tipton is a 59 year old male who presents today for cystoscopy. Pre op dx: Urethral stricture Post op dx: Same Procedure: Attempted flexible cystoscopy Scription of procedure: The patient was taken to the procedure room and placed in the supine position on the cystoscopy table. He was prepped in the usual fashion. 2% Xylocaine jelly was instilled into the urethra in a retrograde fashion. I obtained the flexible cystoscope and attempted to advance this into the urethra however there was significant meatal stenosis. I then obtained a straight hemostat and attempted to gently dilate the meatus however the patient had quite a bit of discomfort and it was clear that this was not going to be possible without anesthesia. The attempt was aborted and the patient will be scheduled for dilation in the operating room. BP 172/101 Physical Exam No follow-ups on file. UNIVERSAL PROTOCOL / SAFETY CHECKLIST Procedure to be Performed: Cystoscopy Sign In: A Moment of CARE was completed. Personnel directly involved with the procedure wore the appropriate PPE (Personal Protective Equipment). No special equipment needed. Patient/Surrogate Stated/Verified: PATIENT VERIFIED(optional for EMERGENT procedures): Patient name, Date of , Relevant allergies, and The intended procedure Time Out Communication: Intended patient and procedure match the source documents. Consent documented and matches the intended procedure. Relevant labs, photos, and/or imaging studies have been reviewed. No correct side/site applicable for marking and visibility. Medications required for procedure verified. No fire risk assessment and interventions applicable. No implant(s) inserted. Sign Out: SIGN OUT (optional for EMERGENT procedures): No specimen collected. All instruments, equipment, possible retained foreign bodies accounted for. Post-procedure follow-up management communicated and Plan of Care Visit completed when applicable. Mohini Altamirano RN documented in this encounter [facility] 06-04-2024 Note HNO ID: [id number] Author: DAWNA SHAH MD Service: ? Author Type: Physician Type: Progress Notes Filed: 06/04/2024 08:03 Note Text: June 04, 2024 Reason for Appointment Patient presents with: Consult: Acute cystitis with hematuria, dysuria, hx of hypospadias repair. Pt stated he did have an infection and has finished his antibiotics. He did state at one point he did have frequency and would leak a little. HPI Dawna Tipton is a 59 year old male who presents today for further evaluation of urinary difficulties related to hypospadias, status post repair in infancy. The patient recently had a urinary tract infection. He notes that he has a markedly diminished force of stream with spraying of the urinary stream. He said that he has had to sit to urinate for many years. He completed a course of antibiotics and said that he feels much better from the standpoint of the UTI. Current Medications sildenafil (VIAGRA) 50 mg tablet Take 50 mg by mouth once daily as needed. furosemide (LASIX) 20 mg tablet Take 20 mg by mouth as needed. metoprolol succinate ER (TOPROL XL) 100 mg Take 1 tablet by mouth every afternoon. levothyroxine (SYNTHROID) 200 mcg tablet Take 200 mcg by mouth every morning. Take on an empty stomach. omeprazole (PRILOSEC) 40 mg capsule take 1 capsule by mouth once daily 30 MINUTES before MORNING MEAL atorvastatin (LIPITOR) 20 mg tablet Take 20 mg by mouth daily at bedtime. lisinopril (ZESTRIL) 40 mg tablet Take 1 tablet by mouth every afternoon. XARELTO 20 mg tablet take 1 tablet by mouth once daily with evening meal albuterol HFA (VENTOLIN HFA) 90 mcg/actuation inhaler Inhale 2 Puffs as instructed. CPAP STIOLTO RESPIMAT 2.5-2.5 mcg/actuation inhale 2 puffs by mouth and INTO THE LUNGS once daily PAST MEDICAL HISTORY Diagnosis Date A-fib (HCC) Bautista's esophagus COPD (chronic obstructive pulmonary disease) (HCC) Dyslipidemia Essential hypertension ETOH abuse Hypothyroidism Mixed hyperlipidemia CHUYITA (obstructive sleep apnea) Sleep apnea Snoring SOB (shortness of breath) Tobacco abuse PAST SURGICAL HISTORY Procedure Laterality Date KNEE SURGERY HX FAMILY HISTORY Problem Relation Age of Onset Thyroid Mother Diabetes Father Thyroid Father Social History Tobacco Use Smoking status: Every Day Packs/day: 1.5 Types: Cigarettes Smokeless tobacco: Never Vaping Use Vaping Use: Never used Substance Use Topics Alcohol use: Yes Drug use: Never ALLERGIES Allergen Reactions Bactrim [Sulfametho* Other: See Comments Get's blisters on his penis Codeine Rash Keflex [Cephalexin] Other: See Comments Objective BP 128/89 Pulse 98 SpO2 98% Physical Exam Constitutional: Appearance: Normal appearance. Pulmonary: Effort: Pulmonary effort is normal. Genitourinary: Comments: The patient was noted to have a mid shaft hypospadias with pretty significant meatal stenosis. 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 The testicles are bilaterally descended and nontender. Prostate is minimally enlarged, no nodules, nontender Neurological: Mental Status: He is alert and oriented to person, place, and time. ASSESSMENT/PLAN: 1. 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 I recommended that he return for cystoscopy to further evaluate his urethral anatomy. I went over this procedure in detail with him today. We discussed potential risks, benefits, and alternatives. The patient expressed understanding of the procedure as well as its attendant risks and wants to proceed. - UA DIP, URINE (POC) - URINE CULTURE 2. Benign prostatic hyperplasia with weak urinary stream - ICD9: 600.01, 788.62, ICD10: N40.1, R39.12 The patient's prostate is only minimally enlarged. I doubt that this is contributing significantly to his lower urinary tract symptoms. We will get an up-to-date PSA on him. - PROSTATE-SPECIFIC ANTIGEN DIAGNOSTIC Dawna Shah MD Follow Up Return for Cysto, Consent. [facility] 06-04-2024 History of Present illness Narrative Formatting of this note is different fro m the original. June 04, 2024 Reason for Appointment Patient presents with: Consult: Acute cystitis with hematuria, dysuria, hx of hypospadias repair. Pt stated he did have an infection and has finished his antibiotics. He did state at one point he did have frequency and would leak a little. HPI Dawna Tipton is a 59 year old male who presents today for further evaluation of urinary difficulties related to hypospadias, status post repair in infancy. The patient recently had a urinary tract infection. He notes that he has a markedly diminished force of stream with spraying of the urinary stream. He said that he has had to sit to urinate for many years. He completed a course of antibiotics and said that he feels much better from the standpoint of the UTI. Current Medications sildenafil (VIAGRA) 50 mg tablet Take 50 mg by mouth once daily as needed. furosemide (LASIX) 20 mg tablet Take 20 mg by mouth as needed. metoprolol succinate ER (TOPROL XL) 100 mg Take 1 tablet by mouth every afternoon. levothyroxine (SYNTHROID) 200 mcg tablet Take 200 mcg by mouth every morning. Take on an empty stomach. omeprazole (PRILOSEC) 40 mg capsule take 1 capsule by mouth once daily 30 MINUTES before MORNING MEAL atorvastatin (LIPITOR) 20 mg tablet Take 20 mg by mouth daily at bedtime. lisinopril (ZESTRIL) 40 mg tablet Take 1 tablet by mouth every afternoon. XARELTO 20 mg tablet take 1 tablet by mouth once daily with evening meal albuterol HFA (VENTOLIN HFA) 90 mcg/actuation inhaler Inhale 2 Puffs as instructed. CPAP STIOLTO RESPIMAT 2.5-2.5 mcg/actuation inhale 2 puffs by mouth and INTO THE LUNGS once daily PAST MEDICAL HISTORY Diagnosis Date A-fib (HCC) Bautista's esophagus COPD (chronic obstructive pulmonary disease) (HCC) Dyslipidemia Essential hypertension ETOH abuse Hypothyroidism Mixed hyperlipidemia CHUYITA (obstructive sleep apnea) Sleep apnea Snoring SOB (shortness of breath) Tobacco abuse PAST SURGICAL HISTORY Procedure Laterality Date KNEE SURGERY HX FAMILY HISTORY Problem Relation Age of Onset Thyroid Mother Diabetes Father Thyroid Father Social History Tobacco Use Smoking status: Every Day Packs/day: 1.5 Types: Cigarettes Smokeless tobacco: Never Vaping Use Vaping Use: Never used Substance Use Topics Alcohol use: Yes Drug use: Never ALLERGIES Allergen Reactions Bactrim [Sulfametho* Other: See Comments Get's blisters on his penis Codeine Rash Keflex [Cephalexin] Other: See Comments Objective BP 128/89 Pulse 98 SpO2 98% Physical Exam Constitutional: Appearance: Normal appearance. Pulmonary: Effort: Pulmonary effort is normal. Genitourinary: Comments: The patient was noted to have a mid shaft hypospadias with pretty significant meatal stenosis. 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 The testicles are bilaterally descended and nontender. Prostate is minimally enlarged, no nodules, nontender Neurological: Mental Status: He is alert and oriented to person, place, and time. ASSESSMENT/PLAN: 1. 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 I recommended that he return for cystoscopy to further evaluate his urethral anatomy. I went over this procedure in detail with him today. We discussed potential risks, benefits, and alternatives. The patient expressed understanding of the procedure as well as its attendant risks and wants to proceed. - UA DIP, URINE (POC) - URINE CULTURE 2. Benign prostatic hyperplasia with weak urinary stream - ICD9: 600.01, 788.62, ICD10: N40.1, R39.12 The patient's prostate is only minimally enlarged. I doubt that this is contributing significantly to his lower urinary tract symptoms. We will get an up-to-date PSA on him. - PROSTATE-SPECIFIC ANTIGEN DIAGNOSTIC Dawna Shah MD Follow Up Return for Cysto, Consent. documented in this encounter [facility] 02-17-2023 History of Present illness Narrative Formatting of this note might be differe nt from the original. Sleep Study Check-In Documentation Date: February 17, 2023 Name: Dawna Tipton Patient was accompanied by Self. Location: [facility] Latex allergy: No Tape allergy: No Current medications were reviewed with the patient:Yes Sleep aid taken by patient for the sleep study: [place] of sleep aid: Not Applicable Procedure was explained to the patient and all questions were answered. PAP treatment discussed and shown to patient: Yes If PAP used enter mask info: Mask Name F 20MakeRESMED MaskTypeFull Face Mask SizeLarge Chin Sharp Used No Knowledge Program (KP): KP was not completed in [facility] by patient and accepted Study type: PAP titration Adverse Event: No (If yes create a new abstract) Comments: Patient was advised to follow up with their ordering provider regarding test results Arlen Carballo documented in this encounter [facility] 09-06-2020 History of Present illness Narrative DATE OF SERVICE: 09/03/2020 HISTORY OF PRESENT ILLNESS: The patient is a 55-year-old man here for some cough, intermittent diarrhea, a little bit of a headache. He missed the last 2 days of work. He needs a work slip to return tomorrow. He has not had COVID exposure. He has not had any fevers. He also has history of some underlying COPD. Does not take any medications for it. ALLERGIES: CODEINE, KEFLEX, BACTRIM. PHYSICAL EXAMINATION: Vital signs: Blood pressure 157/105, pulse 87, respiration 18, temperature 98.5, pulse oximetry 98%. Pain is 6/10. General: Alert and oriented x3. HEENT all within normal limits. Cardiac exam: Normal rate and rhythm without evidence of murmur. The lungs show rhonchi and wheezing bilaterally. No concerns for pneumonia. DIAGNOSIS: Bronchitis. PLAN: Z-David, Medrol Dosepak. Follow up as needed. He acknowledged and understood. Work slip was given. Felicitas Cooley PA-C [id number] SSI File#: [id number] END OF DOCUMENT / CHANGE LOG FOLLOWS Last Edited By Brea. Signed By Felicitas Cooley Chelsea D PAC #JOSE on 09/16/2020 14:45 ET on 09/16/2020 14:45 ET Revision Number - 2 ^^^ Verified/Reviewed by 09/16/20 1445 [facility] PATIENT NAME: DAWNA TIPTON [address] [facility] 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- Primary Preoperative testing Preoperative examination, unspecified 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 [facility] Diagnosis Preoperative testing Preoperative examination, unspecified 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 [facility] Diagnosis 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- Primary [facility] Diagnosis Retention of urine- Primary Retention of urine, unspecified 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 [facility]* Diagnosis 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- Primary Benign prostatic hyperplasia with weak urinary stream [facility] Diagnosis Essential hypertension- Primary Unspecified essential hypertension Longstanding persistent atrial fibrillation (HCC) Dyspnea, unspecified type Dyslipidemia Other and unspecified hyperlipidemia Tobacco abuse Tobacco use disorder Chronic obstructive pulmonary disease, unspecified COPD type (HCC) Encounter for screening for cardiovascular disorders Screening for other and unspecified cardiovascular conditions documented in this encounter [facility] note* Diagnosis Dyspnea, unspecified type Essential hypertension Unspecified essential hypertension Dyslipidemia Other and unspecified hyperlipidemia Tobacco abuse Tobacco use disorder Encounter for screening for cardiovascular disorders Screening for other and unspecified cardiovascular conditions documented in this encounter [facility] note* Diagnosis Essential hypertension Unspecified essential hypertension Dyspnea, unspecified type [facility]* Diagnosis Encounter for screening for cardiovascular disorders Screening for other and unspecified cardiovascular conditions Coronary artery disease involving [place] coronary artery of [place] heart without angina pectoris Encounter for screening for cardiovascular disorders Screening for other and unspecified cardiovascular conditions Coronary artery disease involving [place] coronary artery of [place] heart without angina pectoris [facility]* Diagnosis Encounter for screening for cardiovascular disorders Screening for other and unspecified cardiovascular conditions Coronary artery disease involving [place] coronary artery of [place] heart without angina pectoris Encounter for screening for cardiovascular disorders Screening for other and unspecified cardiovascular conditions Coronary artery disease involving [place] coronary artery of [place] heart without angina pectoris documented in this encounter [facility] for referral (narrative)* Outpatient Procedure (Routine) - Closed Specialty Diagnoses / Procedures Referred By Contac t Referred [facility] Diagnoses Preoperative testing Procedures ECG COMPLETE ECG ROUTINE ECG W/LEAST 12 LDS W/I&R Dawna Shah MD [address] [place] [address] [address] [place] [address] [facility] [address] [place] [address] Referral ID Status Reason Start Date Expiration Date V isits Requested Visits Authorized [id number] Closed Auto-Generate d Referral 06/13/2024 06/13/2025 1 1 [facility] for referral (narrative)* Outpatient Procedure (Routine) - Closed Specialty Diagnoses / Procedures Referred By Contac t Referred To Contact [facility] [place] Diagnoses Preoperative testing Procedures ECG COMPLETE ECG ROUTINE ECG W/LEAST 12 LDS W/I&R Dawna Shah MD [address] [place] [address] [address] Referral ID Status Reason Start Date Expiration Date V isits Requested Visits Authorized [id number] Closed Auto-Generate d Referral 06/13/2024 06/13/2025 1 1 [facility] for visit Narrative* Outpatient Procedure (Routine) - Closed Specialty Diagnoses / Procedures Referred By Contac t Referred To Contact [facility] [place] Diagnoses Preoperative testing Procedures ECG COMPLETE ECG ROUTINE ECG W/LEAST 12 LDS W/I&R Dawna Shah MD [address] [place] [address] [address] [place] [address] [address] Referral ID Status Reason Start Date Expiration Date V isits Requested Visits Authorized [id number] Closed Auto-Generate d Referral 06/13/2024 06/13/2025 1 1 [facility] for visit Narrative* MRI/CT (Routine) - Closed Specialty Diagnoses / Procedures Referred By Contac t Referred To Contact [facility] Diagnoses Dyspnea, unspecified type Essential hypertension Dyslipidemia Tobacco abuse Encounter for screening for cardiovascular disorders Procedures CT CALCIUM SCORING (CARDIAC) WO IVCON CT HEART NO CONTRAST QUANT EVAL CORONRY CALCIUM Marielena Rivera MD [address] , [address] [place] [address] Phone: tel: fax: [place] [address] Referral ID Status Reason Start Date Expiration Date V isits Requested Visits Authorized [id number] Closed Auto-Generate d Referral 01/31/2025 03/17/2025 1 1 [facility] Outpatient Procedure (Routine) - Closed Specialty Diagnoses / Procedures Referred By Contac t Referred To [facility] Diagnoses Essential hypertension Dyspnea, unspecified type Procedures ECHO ECHO TTHRC R-T 2D W/WOM-MODE COMPL SPEC&COLR D Marielena Rivera MD [address] [place] [address] , [address] [place] [address] Phone: tel: fax: [facility] [address] [place] [address] Referral ID Status Reason Start Date Expiration Date V isits Requested Visits Authorized [id number] Closed Auto-Generate d Referral 01/20/2025 01/20/2026 1 1 [facility] Summary Purpose Family History No Family History Records FoundNo Family History Records FoundNo Family History Records FoundNo Family History Records FoundNo Family History Records Found Advance Directives Documents on File Type Date 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 Advance 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(s) 06/24/2017 12:39 PM Additional Source Comments (unrecognized sect ion and content) No Status Records FoundNo Status Records FoundNo Status Records FoundNo Status Records FoundNo Status Records Found INFORMATION SOURCE (unrecogn ized section and content) DATE CREATED AUTHOR 05/02/2018 [facility] DATE CREATED AUTHOR AUTHOR'S ORGANIZ ATION 04/14/2023 [facility] DATE CREATED AUTHOR AUTHOR'S ORGANIZ ATION 01/27/2025 [facility] DATE CREATED AUTHOR AUTHOR'S ORGANIZ ATION 03/04/2025 [facility] DATE CREATED AUTHOR AUTHOR'S ORGANIZ ATION 04/07/2025 [facility] Source Comments (unrecognize d section and content) In the event this informatio n is protected by the Federal Confidentiality of Alcohol and Drug Abuse Patient Records regulations: The Federal rules restrict any use of the information to criminally investigate or prosecute any alcohol or drug abuse patient.[facility] the event this information is protected by the Federal Confidentiality of Alcohol and Drug Abuse Patient Records regulations: The Federal rules restrict any use of the information to criminally investigate or prosecute any alcohol or drug abuse patient.[facility] the event this information is protected by the Federal Confidentiality of Alcohol and Drug Abuse Patient Records regulations: The Federal rules restrict any use of the information to criminally investigate or prosecute any alcohol or drug abuse patient.[facility] the event this information is protected by the Federal Confidentiality of Alcohol and Drug Abuse Patient Records regulations: The Federal rules restrict any use of the information to criminally investigate or prosecute any alcohol or drug abuse patient.[facility] the event this information is protected by the Federal Confidentiality of Alcohol and Drug Abuse Patient Records regulations: The Federal rules restrict any use of the information to criminally investigate or prosecute any alcohol or drug abuse patient.[facility] the event this information is protected by the Federal Confidentiality of Alcohol and Drug Abuse Patient Records regulations: The Federal rules restrict any use of the information to criminally investigate or prosecute any alcohol or drug abuse patient.[facility] the event this information is protected by the Federal Confidentiality of Alcohol and Drug Abuse Patient Records regulations: The Federal rules restrict any use of the information to criminally investigate or prosecute any alcohol or drug abuse patient.[facility] HospitalIn the event this information is protected by the Federal Confidentiality of Alcohol and Drug Abuse Patient Records regulations: The Federal rules restrict any use of the information to criminally investigate or prosecute any alcohol or drug abuse patient.[facility] HospitalIn the event this information is protected by the Federal Confidentiality of Alcohol and Drug Abuse Patient Records regulations: The Federal rules restrict any use of the information to criminally investigate or prosecute any alcohol or drug abuse patient.[facility] HospitalIn the event this information is protected by the Federal Confidentiality of Alcohol and Drug Abuse Patient Records regulations: The Federal rules restrict any use of the information to criminally investigate or prosecute any alcohol or drug abuse patient.[facility] HospitalIn the event this information is protected by the Federal Confidentiality of Alcohol and Drug Abuse Patient Records regulations: The Federal rules restrict any use of the information to criminally investigate or prosecute any alcohol or drug abuse patient.[facility] HospitalIn the event this information is protected by the Federal Confidentiality of Alcohol and Drug Abuse Patient Records regulations: The Federal rules restrict any use of the information to criminally investigate or prosecute any alcohol or drug abuse patient.[facility] HospitalIn the event this information is protected by the Federal Confidentiality of Alcohol and Drug Abuse Patient Records regulations: The Federal rules restrict any use of the information to criminally investigate or prosecute any alcohol or drug abuse patient.[facility] HospitalIn the event this information is protected by the Federal Confidentiality of Alcohol and Drug Abuse Patient Records regulations: The Federal rules restrict any use of the information to criminally investigate or prosecute any alcohol or drug abuse patient.[facility] HospitalIn the event this information is protected by the Federal Confidentiality of Alcohol and Drug Abuse Patient Records regulations: The Federal rules restrict any use of the information to criminally investigate or prosecute any alcohol or drug abuse patient.[facility] HospitalIn the event this information is protected by the Federal Confidentiality of Alcohol and Drug Abuse Patient Records regulations: The Federal rules restrict any use of the information to criminally investigate or prosecute any alcohol or drug abuse patient.[facility] HospitalIn the event this information is protected by the Federal Confidentiality of Alcohol and Drug Abuse Patient Records regulations: The Federal rules restrict any use of the information to criminally investigate or prosecute any alcohol or drug abuse patient.[facility] HospitalIn the event this information is protected by the Federal Confidentiality of Alcohol and Drug Abuse Patient Records regulations: The Federal rules restrict any use of the information to criminally investigate or prosecute any alcohol or drug abuse patient.[facility] Care Teams (unrecognized sec tion and content) Engine Dispatcher Relationship Specialty Start Date End Date AminaChele [address] [place] [address] PCP - General Family Practice 06/24/17 Engine Dispatcher Relationship Specialty Start Date End Date AminaCheleoy [address] [place] [address] PCP - General Family Practice 06/24/17 Engine Dispatcher Relationship Specialty Start Date End Date Chele Anne [address] [place] [address] PCP - General Family Medicine 06/24/17 Engine Dispatcher Relationship Specialty Start Date End Date Chele Anne [address] [place] [address] PCP - General Family Medicine 06/24/17 Engine Dispatcher Relationship Specialty Start Date End Date Chele Anne [address] [facility] [place] [address] PCP - General Family Medicine 06/24/17 Engine Dispatcher Relationship Specialty Start Date End Date Chele Anne [address] [facility] [place] [address] PCP - General Family Medicine 06/24/17 Engine Dispatcher Relationship Specialty Start Date End Date Chele Anne [address] [facility] [place] [address] PCP - General Family Medicine 06/24/17 Engine Dispatcher Relationship Specialty Start Date End Date Amber Vick, SERVICE WRITER ADVISOR.BARREL SCRAPER [address] [place] [address] PCP - General Family Medicine 06/17/24 Engine Dispatcher Relationship Specialty Start Date End Date Amber Vick, SERVICE WRITER ADVISOR.BARREL SCRAPER [address] [place] [address] PCP - General Family Medicine 06/17/24 Engine Dispatcher Relationship Specialty Start Date End Date Amber Vick, SERVICE WRITER ADVISOR.BARREL SCRAPER [address] [place] [address] PCP - General Family Medicine 06/17/24 Engine Dispatcher Relationship Specialty Start Date End Date Amber Vick, SERVICE WRITER ADVISOR.BARREL SCRAPER [address] [place] [address] PCP - General Family Medicine 06/17/24 Engine Dispatcher Relationship Specialty Start Date End Date Amber Vick, SERVICE WRITER ADVISOR.BARREL SCRAPER [address] [place] [address] PCP - [facility] 06/17/24 Engine Dispatcher Relationship Specialty Start Date End Date Amber Vick, SERVICE WRITER ADVISOR.BARREL SCRAPER [address] [place] [address] PCP - [facility] 06/17/24 Engine Dispatcher Relationship Specialty Start Date End Date Amber Vick, SERVICE WRITER ADVISOR.BARREL SCRAPER [address] [place] [address] PCP - [facility] 06/17/24 Engine Dispatcher Relationship Specialty Start Date End Date Amber Vick, SERVICE WRITER ADVISOR.BARREL SCRAPER [address] [place] [address] PCP - [facility] 06/17/24 Engine Dispatcher Relationship Specialty Start Date End Date Amber Vick, SERVICE WRITER ADVISOR.BARREL SCRAPER [address] [place] [address] PCP - [facility] 06/17/24 Reason for Visit (unrecogniz ed section and content) Reason Comments Consult Acute cystitis with hematuria, dysuria, hx of hypospadias repair. Pt stated he did have an infection and has finished his antibiotics. He did state at one point he did have frequency and would leak a little. Reason Comments Cystoscopy-1 Pt Denies urinary pa in. 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 Reason Comments Orders Reason Comments Follow Up 1 month f/u. Pt stat ed everything is going great, and that is the best thing he has done. Reason Comments Follow Up 3 month f/u. Pt stat es he is doing really good. Reason Comments CARD New Patient Consult New patient - p revious AFIB w/ normal ventricular rate Reason Comments Radiology NM Specialty Diagnoses / Procedures Referred By Az t Referred To Contact [facility] Diagnoses Encounter for screening for cardiovascular disorders Coronary artery disease involving [place] coronary artery of [place] heart without angina pectoris Procedures NM CARDIAC PERF STRESS/PHARM MYOCARDIAL SPECT MULTIPLE STUDIES Marielena Rivera MD [address], [address] [place] [address] Phone: tel: fax: [facility] [address] [phone] Phone: tel: Referral ID Status Reason Start Date Expiration Date V isits Requested Visits Authorized [id number] Closed Auto-Generate d Referral 04/04/2025 05/19/2025 1 1 Reason Comments Stress Test CAD SCREENING Specialty Diagnoses / Procedures Referred By Contac t Referred To Contact [facility]LECULAR [facility] FUNCTIONAL IMAGING Diagnoses Encounter for screening for cardiovascular disorders Coronary artery disease involving [place] coronary artery of [place] heart without angina pectoris Procedures NM CARDIAC PERF STRESS/PHARM MYOCARDIAL SPECT MULTIPLE STUDIES Marielena Rivera MD [address], [address] [place] [address] Phone: tel: fax: [facility] [address] [place] [address] Phone: tel: Reason Comments Letter FOR RECORDS PERTAINING TO PATIENTS WHO ARE OR HAVE BEEN ENROLLED IN A CHEMICAL DEPENDENCY/SUBSTANCEABUSE PROGRAM, SOME INFORMATION MAY BE OMITTED. This clinical summary was aggregated from multiple sources. Caution should be exercised in using it in the provision of clinical care. This summary normalizes information from multiple sources, and as a consequence, information in this document may materially change the coding, format and clinical context of patient data. In addition, data may be omitted in some cases. CLINICAL DECISIONS SHOULD BE BASED ON THE PRIMARY CLINICAL RECORDS. [facility]. provides no warranty or guarantee of the accuracy or completeness of information in this document.
--- NOTE | 2025-04-19 21:12 | EX.ED.UPPERE ---
HPI History of Present Illness Chief Complaint: Upper Extremity Injury Informant: patient and spouse/S.O. Narrative Narrative: 60-year-old male presenting to the emergency room with left hand trauma. Patient states that he fell tonight causing dislocation of the index middle and possibly ring fingers. He notes that he is on a blood thinner. He is visiting from out of town. He denies any other injuries. He does note that he has had alcohol today. PFSH PFS Home Medications ?Medication ?Instructions ?Recorded ?Last Taken ?Type escitalopram oxalate 10 mg tablet 10 mg PO DAILY 02/13/17 Unknown History Allergy/AdvReac Type Severity Reaction Status Date / Time cephalexin (From [facility]) Allergy Rash Verified 04/19/25 20:06 codeine Allergy Rash Verified 04/19/25 20:06 Social History Smoking Status: Current every day smoker tobacco type: smokeless tobacco ROS ROS ED Constitutional Constitutional ED: Denies chills, fever(s) or weight loss Eyes Eyes: Denies change in vision or diplopia ENT ENT ED: Denies ear pain, rhinorrhea or sore throat Cardiovascular Cardiovascular: Denies chest pain, orthopnea, palpitations or racing heartbeat Respiratory/Chest Respiratory/Chest: Denies cough, dyspnea or orthopnea Gastrointestinal Gastrointestinal: Denies abdominal pain, diarrhea, nausea or vomiting Genitourinary Genitourinary ED: Denies dysuria, hematuria or urinary frequency Musculoskeletal Musculoskeletal: Reports other Details: Left finger injuries ; Denies arthralgias or myalgias Integumentary Denies abscess or rash Neurologic Neurologic: Denies headache(s) or weakness Psychiatric Psychiatric: Denies anxiety, depression, suicidal ideation or suicidal thoughts Endocrine Endocrinology: Denies polydipsia, polyphagia or polyuria Allergic/Immunologic Allergic/Immunologic ED: Denies mouth swelling, tongue swelling or urticaria EXAM Physical Exam Const Vital Signs: 04/19/25 20:06 Temperature 96.4 F L Temperature Source Temporal Pulse Rate 102 H Respiratory Rate 16 Blood Pressure 143/91 H Blood Pressure Mean 108 Pulse Ox 99 Oxygen Delivery Method Room Air Positive well nourished and well developed General Appearance ED: well developed HEENT Reports normocephalic, head/scalp atraumatic and moist mucous membranes Eyes PERRL and EOMs intact bilaterally Neck no lymphadenopathy, supple and no JVD Resp normal respiratory effort and clear to auscultation bilaterally Cardio regular rate, regular rhythm and no murmurs GI normal to inspection, nondistended, normoactive bowel sounds and non-tender Palpation: soft Back/Spine no CVA tenderness and normal ROM Extremity Extremity Narrative: Left index finger demonstrates a dorsal dislocation at the PIP joint. There is mild ecchymosis. Distally neurovascularly intact. There is a small abrasion on the volar surface over the distal proximal phalanx. Left ring finger does not demonstrate an obvious dislocation and he has full motion of the finger. Left middle finger demonstrates an obvious dislocation at the PIP joint. There is ecchymosis on the volar surface. General Extremety ED: Negative for edema General Extremity: Negative for edema Neuro oriented x3 and CN's II-XII intact bilaterally Sensorium / Orientation: alert Motor Exam: strength 5/5 throughout Psych mental status grossly normal Mood & Affect: Negative for depressed or tearful Skin no rashes or lesions noted and no wounds MDM MDM MDM Narrative Medical decision making narrative: Differential diagnosis includes fracture dislocation tendon disruption neurovascular injury My independent interpretation of the plain films of the right hand is acute fracture of the middle phalanx of the middle finger. There is dislocation at the PIP joint of both the middle and the index finger. The abrasion on the index finger was washed and Band-Aid applied. I offered the patient digital block for reduction and he declined. Recreating the injury and providing traction both the index and the middle finger were easily reduced. After reduction the patient was able to flex the digits. Direct testing of both the flexor digitorum profundus and superficialis was performed. Capillary refill was excellent after each finger was reduced as well. He was placed in AlumaFoam splints. I advised ice and Tylenol. He is to follow-up with orthopedics when he returns home. History & Record Review Discussion w/independent historian: Patient and Significant other Radiography Diagnostic Testing: Clinical Impression(s) from Imaging Studies Hand X-Ray 04/19/25 20:19 IMPRESSION: Acute dislocation and probable tiny acute fracture as described. Reading Location: [facility] Discharge Plan Triage Chief Complaint: Upper Extremity Injury ED Provider: Jas Zazueta Dx/Rx/DC Orders Clinical Impression: Dislocation closed, finger, Fall, Fracture of middle phalanx of finger of left hand Instructions: ED Finger Dislocation, ED Fracture, Finger, Closed Prescriptions: No Action escitalopram oxalate 10 MG tablet 10 mg PO DAILY Primary Care Provider: MARA BRIGGS NP Referrals: MARA BRIGGS NP [Other] Activity Restrictions/Additional Instructions: I would recommend following up with orthopedics near your home. Please call them on Monday and let them know that you dislocated 2 fingers with a fracture. I recommend wearing the splint until cleared by orthopedics. Ice is appropriate and 20-minute sessions 3-4 times per day over the next 48 hours. Print Language: Yoruba Disposition Disposition: Home, Self Care Discharge Date/Time: 04/19/25 21:01
== END 2025-04-19 21:01 | disposition home or self-care (01) ==
PROVIDERS: Emergency Provider Emergency Medicine; Visit Provider Emergency Medicine
DX: S62.623A Displaced fracture of middle phalanx of left middle finger, initial encounter for closed fracture (principal); S63.281A Dislocation of proximal interphalangeal joint of left index finger, initial encounter; W19.XXXA Unspecified fall, initial encounter; F17.220 Nicotine dependence, chewing tobacco, uncomplicated
CPT/HCPCS: 26725; 26770; 73130; 99282